=== PATIENT | female | born 1960 | race Caucasian/White ===

== ENCOUNTER 2018-02-17 00:18 | Outpatient (CLI) | payer MEDICAID, SELFPAY ==
--- NOTE | 2018-02-17 13:00 | DI.MAMMO_ITS ---
SYMPTOMS/DIAGNOSIS: SCREENING, Z12.31 MAMMOGRAM: Mammograms were interpreted according to the usual protocol including computer analysis with CAD system, tomosynthesis and C view imaging. The breast tissue is radiodense. There are no suspicious calcifications. When compared with previous examinations, again noted are the biopsy markers in the lateral portion of the left breast. There is no specific findings to suggest a malignancy in this patient and follow up surveillance with routine annual screening mammography is recommended. Category I. Breast density Category C. MQSA ASSESSMENT OF FINDINGS: Negative. Category 1. Patient will receive a letter notifying them of these results. Bi-RADS category C. The breasts are heterogeneously dense, which may obscure small masses.
== END 2018-02-17 00:38 ==
PROVIDERS: PCP Family Medicine; Visit Provider Family Medicine
DX: Z12.31 Encounter for screening mammogram for malignant neoplasm of breast (principal)
CPT/HCPCS: 77063; 77067

== ENCOUNTER 2018-11-18 00:45 | Outpatient (CLI) | payer MEDICAID, SELFPAY ==
[2018-11-18 12:31] LABS: HCT 41.9 % (36.0-46.0); HGB 14.4 g/dL (12.0-15.5); Mean Corp. HGB Concentration 34.4 g/dL (32.0-36.0); Mean Corpuscular Hemoglobin 32.4 pg (27.0-33.0); Mean Corpuscular Volume 94.4 fL (80-95); Mean Platelet Volume 9.6 fL (8.0-11.0); Platelet Count 281 x1000/uL (130-400); RBC 4.44 m/cumm (4.00-5.20); White Blood Cell Count 7.69 k/cumm (4.4-10.8)
[2018-11-18 13:13] LABS: ALT 16 U/L (14-59); AST 18 U/L (15-37); Albumin 4.1 g/dL (3.4-5.0); Alkaline Phosphatase 50 U/L (46-116); Anion Gap 9.7 mmol/L (3-11); BUN 19 mg/dL (7-18); Bilirubin, Total 0.5 mg/dL (0.2-1.0); CO2 25.3 mmol/L (21.0-32.0); CREATININE 0.99 mg/dL (0.55-1.02); Calcium 9.4 mg/dL (8.5-10.1); Calculated LDL 122 mg/dL; Chloride 105 mmol/L (98-107); Cholesterol 211 mg/dL (50-200); Estimated GFR 57.82 (mL/min/1.73m2); Glucose 90 mg/dL (70-100); HDL Cholesterol 78 mg/dL (40-60); Potassium 3.8 mmol/L (3.5-5.1); Sodium 140 mmol/L (136-145); TSH (W/Ref FT4) 0.92 uIU/mL (0.36-3.74); Total Protein 7.9 g/dL (6.4-8.2); Triglyceride 59 mg/dL (30-150)
--- NOTE | 2018-11-18 13:56 | DI.DEXA_ITS ---
EXAM: XR DEXA BONE DENSITY W/WO JUN INDICATION: bone loss, age-related osteoporosis wo pathologic fracture-M81.0. COMPARISON: There are no comparison examinations available. TECHNIQUE: 2D digital imaging was performed. FINDINGS: DEXA scan was performed according to the usual protocol. Findings for the lumbar spine scanning are a T-score of -2.5. Findings for left hip scanning are a T-score of -2.0 with left femoral neck T-scor e of -2.6. Findings for right forearm scanning T-score 0.4. IMPRESSION: Findings consistent with osteoporosis. Lateral vertebral scanogram shows no evidence of vertebral com pression fracture.
--- NOTE | 2018-11-18 14:30 | DI.RAD_ITS ---
EXAM: XR CERVICAL SPINE COMP 4-5V INDICATION: neck pain, M54.2-cervicalgia. COMPARISON: CERVICAL SP. LIMITED (TRAUMA) from 06/10/2013 TECHNIQUE: 2D digital imaging was performed. FINDINGS: Five views were obtained. The intervertebral disc spaces are well maintained. There appear to be mi ld hypertrophic degenerative changes of the facet joints throughout the cervical region. Neural fora suha appear well maintained. No additional significant bony abnormality seen. IMPRESSION: Degenerative facet changes, no other specific abnormality.
[2018-11-18 15:06] LABS: Vitamin D 25 Total 22.8 ng/ml (30-100)
== END 2018-11-18 01:05 ==
PROVIDERS: PCP Family Medicine; Visit Provider Family Medicine
DX: G89.29 Other chronic pain (principal); M81.0 Age-related osteoporosis without current pathological fracture; R53.83 Other fatigue; M54.2 Cervicalgia; M47.812 Spondylosis without myelopathy or radiculopathy, cervical region
CPT/HCPCS: 36415; 77080; 80053; 80061; 82306; 85027; 72050; 83735; 84443

== ENCOUNTER 2019-02-07 14:37 | Outpatient (CLI) | payer MEDICAID, SELFPAY ==
--- NOTE | 2019-02-07 14:48 | DI.RAD_ITS ---
EXAM: XR HIP LT COMPLETE AND AP PELVIS INDICATION: hip pain lt, M25.552. COMPARISON: XR DEXA BONE DENSITY W/WO JUN from 11/18/2018 TECHNIQUE: 2D digital imaging was performed. FINDINGS: Hip joint spaces are well maintained. There is no significant acetabular spurring. There are minima l degenerative changes of the SI joints and pubic symphysis. IMPRESSION: Minimal degenerative changes.
--- NOTE | 2019-02-07 14:51 | DI.RAD_ITS ---
EXAM: XR LUMBAR SPINE COMPLETE INDICATION: HIP PAIN, M25.552. COMPARISON: XR DEXA BONE DENSITY W/WO JUN from 11/18/2018 TECHNIQUE: 2D digital imaging was performed. FINDINGS: The vertebral bodies are well maintained in height. There is a slight scoliosis. The lumbar disc sp aces are well maintained. There is narrowing of the anterior disc spaces and endplate osteophytes fo rmation in the lower thoracic spine. There are facet degenerative changes in the lower lumbar spine, greatest at L5-S1. The aorta shows calcification but is normal in diameter. IMPRESSION: Facet degenerative changes greatest at L5-S1. Degenerative disc changes greatest at the lower thorac ic spine.
== END 2019-02-07 14:57 ==
PROVIDERS: PCP Family Medicine; Visit Provider Family Medicine
DX: M25.552 Pain in left hip (principal); M53.3 Sacrococcygeal disorders, not elsewhere classified; M47.817 Spondylosis without myelopathy or radiculopathy, lumbosacral region; M51.34 Other intervertebral disc degeneration, thoracic region
CPT/HCPCS: 72110; 73502

== ENCOUNTER 2019-05-10 20:02 | Outpatient (REF) | payer MEDICAID, SELFPAY ==
[2019-05-10 19:54] LABS: *AMPHETAMINES SCREEN URINE Negative (Negative); *BARBITURATES SCREEN URINE Negative (Negative); *BENZODIAZEPINES SCREEN URINE POSITIVE (Negative); Cannabinoids THC POSITIVE (Negative); Cocaine Screen,Urine Negative (Negative); METHADONE URINE SCREEN Negative (Negative); OPIATES URINE SCREEN POSITIVE (Negative)
[2019-05-10 20:16] LABS: Tricyclic Antidepressants Negative (Negative)
== END 2019-05-10 20:22 ==
LOC: LBN 20:02
PROVIDERS: PCP Family Medicine; Visit Provider Family Medicine
DX: G89.4 Chronic pain syndrome (principal); Z79.899 Other long term (current) drug therapy
CPT/HCPCS: 80307

== ENCOUNTER 2019-05-16 01:45 | Outpatient (CLI) | payer MEDICAID, SELFPAY ==
--- NOTE | 2019-05-16 14:45 | DI.MAMMO_ITS ---
EXAM: MAMMO SCREENING CLINICAL HISTORY: screening, Z12.39 TECHNIQUE: Mammograms were interpreted according to the usual protocol including computer analysis w datatracker CAD system, tomosynthesis and C-view imaging. FINDINGS: The breasts are heterogeneously dense. No dominant mass or clumped microcalcification is identified in either breast. Current examination is compared with previous examinations including January 2018 and there has been no gross interval change in appearance in comparison with previous studies. Note is again made of upper outer quadrant biopsy clips of the left breast. IMPRESSION: No specific evidence of malignancy at this time. Routine screening examinations are suggested at yea rly intervals in this age group according to the ACS ACR guidelines. BI-RADS Cat 1 - Negative Breast Density - Category C - Heterogeneously dense
--- NOTE | 2019-05-16 14:45 | DI.CTLCSR_ITS ---
EXAM: CT CHEST LUNG CANCER SCREEN CLINICAL HISTORY: Screening for lung cancer, current smoker, Z12.2 TECHNIQUE: COMPARISON: No exams were available for comparison FINDINGS: CT examination of the chest was performed utilizing low-dose lung cancer screening protocol. Images obtained through the upper abdomen show unremarkable appearance of visualized portions liver, spleen, pancreas, adrenals, kidneys. There is no mediastinal or hilar adenopathy. The tracheobronchial danny e appears intact. There is moderate central lobular emphysema. There are tiny bilateral calcified pulmonary nodules. No significant noncalcified intrapulmonary nodule seen. No pleural effusion. No pulmonary consolida tion. IMPRESSION: Lung RADS Cat 1 - Negative: No nodules and definitely benign nodules routine LD CT suggested in 12 mo nths.
== END 2019-05-16 02:05 ==
PROVIDERS: PCP Family Medicine; Visit Provider Family Medicine
DX: Z12.31 Encounter for screening mammogram for malignant neoplasm of breast (principal); Z12.2 Encounter for screening for malignant neoplasm of respiratory organs; J43.9 Emphysema, unspecified; R91.8 Other nonspecific abnormal finding of lung field
CPT/HCPCS: 77063; 77067; G0297

== ENCOUNTER 2020-05-21 02:17 | Outpatient (CLI) | payer MEDICAID, SELFPAY ==
--- NOTE | 2020-05-21 13:14 | DI.CTLCSR_ITS ---
EXAM: CT CHEST LUNG CANCER SCREEN CLINICAL HISTORY: Screening for lung cancer,CURRENT SMOKER, F17.210. TECHNIQUE: Imaging Protocol: Low Dose Technique CONTRAST MATERIAL: None COMPARISON: CT CT CHEST LUNG CANCER SCREEN from 05/16/2019 FINDINGS: CHEST: LUNGS: There are no ominous pulmonary nodules. No pleural effusions. MEDIASTINUM: There is no obvious hilar nor mediastinal adenopathy. CARDIAC: Heart size is normal. There is no pericardial effusion.Caliber of the thoracic aorta is wit hin normal limits. OSSEOUS: No significant osseous lesions.. IMPRESSION: 1. No significant pulmonary nodules. 2. No pleural effusions. lung RADS Cat 1 - Negative: No nodules and definitely benign nodules Lung-RADS 1.0 CATEGORIES: Category 0 - Prior chest CT exam(s) being located for comparison. Category 1 - Annual screening in 12 months. No nodules or definitely benign nodules. Category 2 - Annual screening in 12 months. Benign appearance. Nodules with low likelihood of becomin g active cancer. Category 3 - 6-month follow-up. Probably benign. Short-term follow-up suggested. Nodules with low lik elihood of becoming active cancer. Category 4A - 3-month follow-up and CT/PET if >8 mm in size. Suspicious finding. Findings which requi re additional testing. Category 4B - Findings which require additional testing and tissue sampling. Modifier S- Potentially clinically significant findings (non lung cancer) RADIATION DOSE DELIVERED: 74.95mGy.cm Total DLP 1.84mGy CTDIvol DATA REPOSITORY: All CT scans at this facility are submitted to the National Radiology Data Registry (NRDR) Dose Index Registry (DIR) with the [employer] (ACR). RADIATION OPTIMIZATION: All CT scans at this facility use at least one of these dose optimization te chniques: automated exposure control; mA and/or kV adjustment per patient size (includes targeted exa ms where dose is matched to clinical indication); or iterative reconstruction.
== END 2020-05-21 02:37 ==
PROVIDERS: PCP Family Medicine; Visit Provider Family Medicine
DX: Z12.2 Encounter for screening for malignant neoplasm of respiratory organs (principal); F17.210 Nicotine dependence, cigarettes, uncomplicated
CPT/HCPCS: 71271

== ENCOUNTER 2020-08-17 10:20 | Day surgery (SDC) | payer MEDICAID, SELFPAY ==
[2020-08-17 10:40] VITALS: BP 120/84; PULSE 92; RESP 17; TEMP 36.2; O2SAT 96
--- NOTE | 2020-08-17 11:01 | ANES.PREOP_ITS ---
General Info Date of Service Date Performed: 08/17/20 Height: 5 ft Weight: 49.4 kg Body Mass Index (BMI): 21.2 Surgical Procedure: Operation Date: 08/17/20 10:35 Proposed Procedures Side Surgeon kia Sheriff, Meds Allergies and Home Medications Allergies Allergy/AdvReac Type Severity Reaction Status Date / Time fentanyl Allergy Intermediate BLACKOUTS Verified 08/17/20 10:36 Sulfa (Sulfonamide Allergy Intermediate SKIN RASH Verified 08/17/20 10:36 Antibiotics) trimethoprim Allergy Intermediate SKIN RASH Verified 08/17/20 10:36 naproxen [From Aleve] Allergy Mild Rash Verified 08/17/20 10:36 meloxicam AdvReac Intermediate VOMITING Verified 08/17/20 10:36 tramadol AdvReac Intermediate VOMITING Verified 08/17/20 10:36 codeine AdvReac Mild VOMITING Verified 08/17/20 10:36 Home Medication Medication Instructions Recorded budesonide-formoterol HFA 160 2 puff INHALATION BID PRN #3 each 02/11/20 mcg-4.5 mcg/actuation aerosol inhaler ibuprofen 200 mg tablet 400 mg PO Q4H PRN tab 08/03/20 alprazolam 0.5 mg tablet 0.5 mg PO QHS PRN #30 tab 08/09/20 naloxone 4 mg/actuation nasal spray 4 mg NS PRN #2 ea 08/09/20 oxycodone-acetaminophen 10 mg-325 1 - 2 tab PO TID PRN #62 tab MDD 3 08/09/20 mg tablet Current Visit Medications: Current Medications Generic Name Dose Route Start Last Admin Trade Name Rickyq PRN Reason Stop Dose Admin Hyoscyamine Sulfate 0.125 mg 08/16/20 14:24 Hyoscyamine 0.125 Mg Sl/Oral/Chew SL DIRECTED PRN Ringer's Solution 1,000 mls @ 80 mls/hr 08/17/20 06:00 IV 09/15/20 23:59 [facility] IV Miscellaneous Supplies 1 each 08/17/20 06:00 Iv Access IV 09/15/20 23:59 DIRECTED DWAIN Ondansetron HCl 4 mg 08/16/20 14:24 Ondansetron 4 Mg/2 Ml Vial IVP Q4H PRN PRN Nausea / Vomiting Sodium Chloride 0 ml 06/25/21 06:00 Normal Saline Flush 10 Ml Syr IV 09/15/20 23:59 PRN PRN Sodium Chloride 0 ml 08/17/20 06:00 Normal Saline 10 Ml Vial IJ 09/15/20 23:59 DIRECTED PRN Sterile Water 0 ml 08/17/20 06:00 Water,Injection,Sterile 10 Ml Vial IJ 09/15/20 23:59 DIRECTED PRN PFSH Active Problems Active Problems: Problem Status Onset Code Dysphagia R13.10 Neck pain M54.2 Osteoporosis M81.0 Hand pain M79.643 Polyp, colonic K63.5 Vitamin D deficiency E55.9 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) 07/26/12 R85.613 History of skin graft Z94.5 Major depressive disorder F32.9 Synovial cyst of left popliteal space 04/22/16 M71.22 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 HPV/PAP ; neg. PAP Abnormal renal function (05/16/13) [place] [facility] [place]normal weight loss Ankle pain 11/14/13 Ankle pain (11/14/13) Annual physical exam (01/13/17) Anxiety (02/14/14) 01/13/17 LAURA-7 score 12 04/14/17 LAURA SCORE=12 Asthma (07/29/12) Ariza of multiple specified sites, unspecified degree (10/02/09) face,leg and hands Chronic pain disorder (10/08/11) Chronic sinusitis Decreased hearing of both ears (01/13/17) DUB (dysfunctional uterine bleeding) Elev transaminase/LDH Elevation of level of transaminase and lactic acid dehydrogenase (LDH) Fracture of fibula rt ankle injury Fracture of fibula HGSIL on cytologic smear of cervix 07/26/12 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 states no issues Smoker Soft tissue injury of left knee (12/11/15) bakers cyst left Sympathetic reflex dystrophy (11/18/16) Synovial cyst of left popliteal space (04/22/16) Trochanteric bursitis Surgical History Surgical History Arthroscopy 02/2009 RIGHT SHOULDER REPAIR OF BANKART LESION, SUBACROMIAL DECOMPRESSION; MINI OPEN REPAIR OF ROTATOR CUFF; DR. WILKS @ [facility]. 07/03-surgery to left wrist to untether tendon to grafted skin Biopsy of breast 13 STRANDS FROM RIGHT BREAST,NEVER WENT BACK TO [place] TO HAVE LEFT DONE Cervical Procedure SEVERAL CERVICAL BX [id number] Dilation and curettage History of bilateral ligation of fallopian tubes History of bilateral tubal ligation History of skin graft Hx of skin graft 02/23/09 grafts to both wrists; debrided left side of face Ligation of fallopian tube S/P arthroscopy of shoulder right shoulder repair of bankart lesion, subacromial decompression; mini open repair of rotator cuff; Dr. Wilks @ [facility], 07/03--surgery to left wrist to untether tendon to grafted skin. S/P breast biopsy SKIN GRAFT (07/14/09) GRAFTS TO BOTH WRISTS & LOWER ARMS; DEBRIDED LEFT SIDE OF FACE Status post arthroscopy of shoulder Status post breast biopsy Tooth extraction REMOVED WISDOM TEETH. GRAFT TO BOTTOM FRONT GUMS USING TISSUE FROM THE ROOF OF MOUTH. Tobacco Smoking/Tobacco Use Status: Current every day Tobacco Type: cigarettes Tobacco: How many years used: 36 Passive smoking exposure: Yes Quit Status: considering quitting Second hand exposure: Yes Alcohol Alcohol Intake: current Alcohol intake frequency: holidays/special occasions only Alcohol type: beer Substance Use Substance use: Daily Substance use type: marijuana Vital Signs and Lab Results Vital Signs Most Recent Vital Signs in EMR: Most Recent Vital Signs Temp Pulse Resp BP Pulse Ox 36.2 C L 92 H 17 120/84 96 08/17/20 10:40 08/17/20 10:40 08/17/20 10:40 08/17/20 10:40 08/17/20 10:40 Lab Results Blood Type / Crossmatch: No Data to Display Complete Blood Count: No Data to Display Complete Metabolic Panel: No Data to Display Liver Function Panel: No Data to Display Coagulation Panel: No Data to Display Cardiac Panel: No Data to Display Arterial Blood Gas: No Data to Display Venous Blood Gas: No Data to Display Pancreas Panel: No Data to Display Thyroid Panel: No Data to Display Infectious Disease: No Data to Display Blood Cultures: No Data to Display Toxicology Panel: No Data to Display Anesthesia Assessment and Plan Anesthesia History Personal History: No History of Anesthesia Complications Family History: No Family History of Anesthesia Complications Exercise Tolerance Exercise Tolerance: Metabolic Equivalents>4 Pertinent Negatives Pertinent Negatives: No Symptoms of GERD Cardiac & Pulmonary Exam Cardiac Exam: Normal S1/S2 Heart Sounds Pulmonary Exam: Clear Bilateral Breath Sounds Airway Exam Known Difficult Airway: No Mallampati Class: 2 Mouth Opening: Normal (> 3cm) Thyromental Distance: Greater than 3 cm Neck Range of Motion: Full ROM Neck Circumference: Normal Teeth Condition: Normal Dentition ASA Classification ASA Score: ASA 2 Emergency Case?: No NPO Status NPO Status: NPO Clears >2 hours, Solids >8 hours Anesthesia Plan Resuscitation Status: Full Code Anesthesia Technique: General Anesthesia Airway Planned: Natural Airway Monitors Used: Standard Monitors
[2020-08-17 11:03] VITALS: BMI 21.2
--- NOTE | 2020-08-17 11:13 | W.COLOREPORT ---
Date of service: 08/17/20 Time of Service: 11:13 Colonoscopy Report Date of procedure: 08/17/20 Pre-op diagnosis general: A. polyps Post-op diagnosis procedure note: other (Severe diverticula of the sigmoid colon and colon polyps) Surgeon: Crista Sheriff Anesthesia Type: General:No Airway Estimated blood loss (mL): 0 Pathology: other Complications: None Disposition: same day Prep: Miralax/Dulcolax Retraction Time: 12 Procedure Description: After informed consent was obtained the patient was taken to the procedure room and placed in a left decubitous position. Monitors were applied and a time out was done. The patients name, date of , procedure, allergies to medications and metal in their body was reviewed. The patient was then sedated. Once sedated and comfortable a rectal exam was done. External exam: External hemorrhoidal tags internal exam revealed a normal sphincter tone and no palpable masses. The scope was then introduced and retrofelexed. Grade 1 internal hemorrhoids were identified. The scope was then advanced to the cecum without difficulty. The TI and appendiceal orifice were identified. The prep was good. The scope was then slowly retracted over 12 minutes back into the rectum. Polyps were removed at she had 2 small polyps at 20 cm. 1 is of flat 5 mm polyp and is needing total with a cold biting forcep. The other is a 1 cm flat polyp in the is removed with a hot biting forcep in total. All specimens are retrieved and no bleeding is noted. She does have severe diverticular disease confined to the sigmoid colon. There is no signs of active bleeding or infection. She has very large and very polyps. This makes her colonoscopy difficult and at high risk for perforation. The scope was removed and the patient was woken up and taken back to Same day surgery in stable condition. The patient tolerated the procedure well and there were no immediate complications. Follow up: The patient should follow up in 5-path pending, unless they develop changes in bowel habits or other new gastrointestinal complaints.
--- NOTE | 2020-08-17 11:14 | PDOC.DSDIS_ITS ---
Discharge Plan Disposition Patient Disposition: HOME Condition: Good Discharge Details Reason For Visit: colon scope Attending Provider: Crista Sheriff Primary Care Provider: Lynda Cerda Home Meds and New Rx's Prescriptions: No Action ibuprofen [Advil] 200 mg tablet 400 mg PO Q4H PRNRF: 0 alprazolam 0.5 mg tablet 0.5 mg PO QHS PRN (Reason: sleep) Qty: 30 RF: 5 Narcan 4 mg/actuation spray,non-aerosol 4 mg NS PRN Qty: 2 RF: 4 oxycodone-acetaminophen 10-325 mg tablet 1 - 2 tab PO TID MDD 3 PRN (Reason: pain) Qty: 62 RF: 0 budesonide-formoterol [Symbicort] 160-4.5 mcg/actuation HFA aerosol inhaler 2 puff Inhalation BID PRN (Reason: asthma) Qty: 3 RF: 6 Discharge Instructions Additional Instructions: DSU Colonoscopy Post- Op Instructions Instructions for Everyone who is given Anesthesia: For your safety, please do the following for the next twenty-four (24) hours: *Do Not operate a motor vehicle (car, truck, motorcycle, etc.) *Do Not drink alcoholic beverages or use any recreational drugs for the first 24 hours or while taking pain medications. The medications in your body may have a reaction that can be dangerous. *Do Not make any important decisions or sign any important papers. Findings: severe diverticula. x2 small polyps We will send a letter in 3 to 4 weeks with the results of the pathology on the polyps, and when to repeat the colonoscopy Make sure you are following a high-fiber diet and moving your bowels on a regular basis without straining. Patient is on chronic narcotics and needs to make sure she is on a good bowel regimen is moving the bowels regularly and not strain 1. No lifting over 20 pounds or strenuous activity for the first 24 hours after your procedure. After 24 hours there are no restrictions on your activity but you may feel fatigued for a few days. 2. After you arrive home you may have a light meal and return to your normal diet as you can tolerate it without feeling sick to your stomach. 3. You may have a bloated, gaseous feeling in your belly (abdomen) after a colonoscopy. Passing gas and belching will help. Walking or lying down on your left side with your knees flexed may relieve the discomfort. Call the office at [phone] (Office) or [phone] (Hospital) right away if you notice any of the following: a.Vomiting of blood or ?coffee ground stools?. b.Rectal bleeding 1Tbsp, blood clots or continuous bleeding. c.Severe belly (abdominal) pain. d.A hard distended belly (abdomen) and an inability to pass gas. 4. Please don?t expect to have a normal BM (bowel movement) for 2-3 days after your procedure. 5. If there are questions regarding the findings of your procedure, please contact your doctor 6. If you are unable to contact your doctor with a problem, contact the hospital at [phone]. 7. Continue all your regular medications unless directed otherwise. I understand the above instructions and have no questions. Signature of Patient or Adult Escort Name of Responsible Adult Escort Signature of Nurse Date/Time Activity:: see above Diet:: see above Discharge Orders Discharge Orders: Discharge Order (Routine); Ordered 08/16/20 Ordered By: Crista Sheriff Discharge Data Discharge Date/Time-TO BE ENTERED AT DEPARTURE: 08/17/20 12:30 Discharge Comment: Pt ambulated to car with stand by assist, dtr gil DS: Diagnosis Discharge Diagnosis (1) Adenomatous colon polyp: Status: Acute (2) Diverticula of colon: Status: Acute
[2020-08-17] MEDS: Lactated Ringers 1,000 ML 80 ML IV (11:15)
--- NOTE | 2020-08-17 11:40 | BOWEL_PTH ---
PATIENT: Bela Alcantara LOC: [facility] U#:[id number] AGE/SX: 59/F ROOM: RE08/17/[address]: Crista Sheriff : 1960 BED: DIS: 08/17/2020 SPEC #: [id number] RECD: 08/17/20 12:49 STATUS: [facility]I REChuck #: [id number] STEPHANIE: 08/17/20 11:[address]: Crista Sheriff DEPT: Surgical Specimen RECD BY: Zaynab Mckinley ENTERED: 08/17/20 12:50 SP TYPE: Bowel OTHR DR: Lynda Cerda MD, DC Tissues: 1 - BIOPSY BOWEL Procedures: GROSS AND MICRO LEVEL 4 Comments: [id number]
[2020-08-17 11:49] VITALS: BP 107/54; PULSE 80; RESP 16; TEMP 36; O2SAT 98
--- NOTE | 2020-08-17 11:58 | W.ANESPOSTOP ---
Postoperative Evaluation Date, Time and Location Date Performed: 08/17/20 Time Performed: 11:58 Patient Location: Day Surgery Unit Vital Signs Most Recent Imported Vital Signs: Most Recent Vital Signs Temp Pulse Resp BP Pulse Ox 36.0 C L 80 16 107/54 L 98 08/17/20 11:49 08/17/20 11:49 08/17/20 11:49 08/17/20 11:49 08/17/20 11:49 Pain Score Most Recent Pain Score: Most Recent Pain Score Pain Level 0 08/17/20 11:49 Assessment Mental Status: Awake (Alert & Oriented to Patient Baseline) Airway and Respiratory Function: Patent airway with normal (patient baseline) respiratory exam Cardiovascular Function: Hemodynamically Stable Hydration Status: Adequately Hydrated Nausea & Vomiting: No Nausea or Vomiting Pain: Pt. Denies Any Pain Peripheral Nerve Block: Patient did not receive a nerve block
[2020-08-17 12:19] VITALS: BP 152/94; PULSE 80; RESP 20; TEMP 36.4; O2SAT 100
== END 2020-08-17 12:30 | disposition home or self-care (01) ==
PROVIDERS: PCP Family Medicine; Visit Provider Surgery
PROC: 0DJD8ZZ Inspection of Lower Intestinal Tract, Via Natural or Artificial Opening Endoscopic (ICD-10-PCS; CPT 45378; principal; 2020-08-17 10:30)
DX: Z12.11 Encounter for screening for malignant neoplasm of colon (principal); K63.5 Polyp of colon; K57.30 Diverticulosis of large intestine without perforation or abscess without bleeding; Z86.010 Personal history of colon polyps
CPT/HCPCS: 45384; 45380; 88305; J2001

== ENCOUNTER 2020-08-28 04:18 | Outpatient (CLI) | payer MEDICAID, SELFPAY ==
[2020-08-28 09:35] LABS: HCT 42.2 % (36.0-46.0); HGB 14.1 g/dL (11.2-15.7); MCH 32.6 pg (27.0-33.0); MCHC 33.4 % (32.0-36.0); MCV 97.5 fL (80-95); MPV 9.3 fL (8.0-11.0); Platelet Count 316 10^3/uL (130-400); RBC 4.33 10^6/uL (3.93-5.22); RDW 13.5 % (11.7-14.6); RDW-SD 48.8 fL
[2020-08-28 11:01] LABS: ALT 14 U/L (14-59); AST 13 U/L (15-37); Albumin 3.7 g/dL (3.4-5.0); Alkaline Phosphatase 58 U/L (46-116); Anion Gap 12.3 mmol/L (3-11); BUN 13 mg/dL (7-18); Bilirubin, Total 0.4 mg/dL (0.2-1.0); CO2 24.7 mmol/L (21.0-32.0); CREATININE 1.1 mg/dL (0.55-1.02); Chloride 105 mmol/L (98-107); Estimated GFR 50.84 (mL/min/1.73m2); Glucose 90 mg/dL (74-106); Potassium 4.2 mmol/L (3.5-5.1); Sodium 142 mmol/L (136-145); TSH (W/Ref FT4) 1.19 uIU/mL (0.36-3.74); Total Protein 6.9 g/dL (6.4-8.2)
== END 2020-08-28 04:19 | disposition home or self-care (01) ==
LOC: LBO 04:18
PROVIDERS: PCP Family Medicine; Visit Provider Family Medicine
DX: E55.9 Vitamin D deficiency, unspecified (principal); M81.0 Age-related osteoporosis without current pathological fracture; G90.50 Complex regional pain syndrome I, unspecified; N28.9 Disorder of kidney and ureter, unspecified; F41.8 Other specified anxiety disorders
CPT/HCPCS: 36415; 80053; 82306; 85027; 84443

== ENCOUNTER 2021-03-25 14:39 | Outpatient (REF) | payer MEDICAID, SELFPAY ==
[2021-03-27 09:31] LABS: COVID-19 RT-PCR UVMMC Result Negative (Negative)
== END 2021-03-25 14:40 | disposition home or self-care (01) ==
LOC: LBN 14:39
PROVIDERS: PCP Family Medicine; Visit Provider Family Medicine
DX: R11.10 Vomiting, unspecified (principal); R19.7 Diarrhea, unspecified; Z20.822 Contact with and (suspected) exposure to COVID-19
CPT/HCPCS: 80307; U0003

== ENCOUNTER 2021-05-20 09:48 | Outpatient (REF) | payer MEDICAID, SELFPAY ==
[2021-05-20 15:08] LABS: *AMPHETAMINES SCREEN URINE Negative (Negative); *BARBITURATES SCREEN URINE Negative (Negative); *BENZODIAZEPINES SCREEN URINE Positive (Negative); Cannabinoids THC Positive (Negative); Cocaine Screen,Urine Negative (Negative); METHADONE URINE SCREEN Negative (Negative); OPIATES URINE SCREEN Positive (Negative)
[2021-05-20 15:13] LABS: Tricyclic Antidepressants Negative (Negative)
== END 2021-05-20 09:49 | disposition home or self-care (01) ==
LOC: LBN 09:48
PROVIDERS: PCP Family Medicine; Visit Provider Family Medicine
DX: G89.4 Chronic pain syndrome (principal)
CPT/HCPCS: 80307

== ENCOUNTER 2021-05-22 01:49 | Outpatient (CLI) | payer MEDICAID, SELFPAY ==
--- NOTE | 2021-05-22 07:15 | DI.MAMMO_ITS ---
Exam(s) MAMMO SCREENING EXAM: MAMMO SCREENING CLINICAL HISTORY: screening Z12.39 FOR BREAST CANCER TECHNIQUE: Mammograms were interpreted according to the usual protocol including computer analysis w [employer] CAD system, tomosynthesis and C-view imaging. COMPARISON: FINDINGS: The breasts are heterogeneously dense with fairly symmetrical distribution of fibroglandular tissue. No dominant mass or clumped microcalcification is identified in either breast. The current examinat ion is compared with previous examinations including April 2019 and there has been no gross interval change in appearance in comparison with the prior studies. IMPRESSION: No specific evidence of malignancy at this time. Routine screening examinations are suggested at ye ladi intervals in this age group according to the ACS ACR guidelines. BI-RADS Category 1 - Negative Breast Density - Category C - Heterogeneously dense
--- NOTE | 2021-05-22 13:17 | DI.CTLCSR_ITS ---
Exam(s) CT CHEST LUNG CANCER SCREEN EXAM: CT CHEST LUNG CANCER SCREEN CLINICAL HISTORY: Screening for lung cancer F17.210 SMOKER TECHNIQUE: CT examination of the chest was performed utilizing low-dose lung cancer screening protoc ol. COMPARISON: CT CT CHEST LUNG CANCER SCREEN from 05/16/[address] CHEST LUNG CANCER SCREEN from 05/21/2020 FINDINGS: Images obtained through the upper abdomen show unremarkable appearance of visualized portions of the spleen. There is a poorly defined rounded area intermediate attenuation in the anterior aspect of t he left hepatic lobe measuring about 19 millimeters in diameter, this appears to show attenuation abo ve expected attenuation of a cyst. This was questionably present on prior examinations but is much m ore easily seen on today's study. Multiphasic hepatic CT suggested to rule out hepatic mass.. There is no mediastinal or hilar adenopathy. Mediastinal vascular structures appear intact by noncon trast criteria. Tracheobronchial tree appears intact. No pleural effusion or pleural-based mass. The lungs are clear with no significant intrapulmonary nodule identified. A calcified right middle l obe pulmonary nodule is again noted. IMPRESSION: No suspicious pulmonary nodule seen. Questionable hepatic mass, multiphasic hepatic CT requested for further evaluation. Lung RADS Cat 1 - Negative: No nodules and definitely benign nodules Lung RADS Cat S - Other: Clinically Significant or Potentially Clinically Significant Findings (non l ronald cancer) Continue annual screening with LDCT in 12 months. Incidental Findings Lung-RADS 1.0 CATEGORIES: Category 0 - Prior chest CT exam(s) being located for comparison. Category 1 - Annual screening in 12 months. No nodules or definitely benign nodules. Category 2 - Annual screening in 12 months. Benign appearance. Nodules with low likelihood of becomin g active cancer. Category 3 - 6-month follow-up. Probably benign. Short-term follow-up suggested. Nodules with low lik elihood of becoming active cancer. Category 4A - 3-month follow-up and CT/PET if >8 mm in size. Suspicious finding. Findings which requi re additional testing. Category 4B - Findings which require additional testing and tissue sampling. Suspicious finding. Category 4X - Category 3 or 4 nodules with additional features or imaging findings that increases the suspicion of malignancy. Modifier S- Potentially clinically significant finding. (Non lung cancer) RADIATION DOSE DELIVERED: 77.81mGy.cm Total DLP !Error CTDIvol 77.81mGy.cm Total DLP !Error CTDIvol RADIATION OPTIMIZATION: All CT scans at this facility use at least one of these dose optimization te chniques: automated exposure control; mA and/or kV adjustment per patient size (includes targeted exa ms where dose is matched to clinical indication); or iterative reconstruction.
== END 2021-05-22 02:09 ==
PROVIDERS: PCP Family Medicine; Visit Provider Family Medicine
DX: Z12.31 Encounter for screening mammogram for malignant neoplasm of breast (principal); F17.210 Nicotine dependence, cigarettes, uncomplicated; Z12.2 Encounter for screening for malignant neoplasm of respiratory organs; R93.2 Abnormal findings on diagnostic imaging of liver and biliary tract; R92.8 Other abnormal and inconclusive findings on diagnostic imaging of breast
CPT/HCPCS: 71271; 77063; 77067

== ENCOUNTER → 2021-11-01 00:40 | Outpatient (CLI) | payer MEDICAID, SELFPAY ==
--- OUTSIDE RECORDS SUMMARY | 2021-11-01 01:01 | XMS_ITS | Encounter Summary ---
:1960 Author Organization [facility] Address [address] [place] [address] Care Team Providers Name Role Phone Lynda Cerda MD Primary Care Provider Reason for Visit Reason Onset Date Comments Appointment Related 05/20/2011 Dr. Jesus Day Encounter Details Date Type Department Care Team Description 05/20/2011 Telephone [facility] Cnoner Harmon Appoint ment Related Plastic, Reconstructive & Jonn Chaparro (Dr. Jesus Day) Cosmetic Surgery - [address] [facility] [address] [facility], [address] [place] [phone] Social History Tobacco Use Types Packs/Day Years Used Date Current Every Day Smoker 1 23 Alcohol Use Standard Drinks/Week Comments Yes 2 (1 standard drink = 0.6 oz pure alcoho l) Sex Assigned at Date Recorded Not on file documented as of this encounter Functional Status Cognitive Status Response Date of Assessment Because of a physical, mental, or emotional condition, do Ye s 07/15/2009 you have serious difficulty concentrating, remembering, or making decisions? (5 years old or older) documented as of this encounter Miscellaneous Notes Telephone Encounter - Mell Mathis - 05/20/2011 1034 EDT Left message for patient appt sched with Dr. Jesus Day for 05/28/11 @ 10:30am. with appt info, address & phone # to contact Dr. Day's office with questions. Clinical faxed for appt. documented in this encounter Plan of Treatment Not on filedocumented as of this encounter Visit Diagnoses Not on filedocumented in this encounter Care Teams Vehicle Glass Technician Relationship Specialty Start Date End Date Lynda Cerda MD PCP - General 08/16/[address] [place] [address] [address] [place] [phone] documented as of this encounter
--- OUTSIDE RECORDS SUMMARY | 2021-11-01 01:01 | XMS_ITS | Encounter Summary ---
:1960 Author Organization [facility] Address [address] [place] [address] Care Team Providers Name Role Phone Lynda Cerda MD Primary Care Provider Encounter Details Date Type Department Care Team Description 01/13/2017 Results Only [facility]- [facility] Lynda Cerda MD [phone] [place] [phone] (Wo rk) Social History Tobacco Use Types Packs/Day Years [...] or older) documented as of this encounter Plan of Treatment Not on filedocumented as of this encounter Procedures Procedure Name Priority Date/Time Associated Diagnosis Comme nts PAP TEST- RESULT Routine 01/13/2017 0:00 EST Resu lts for this ONLY procedure are i n the results section. documented in this encounter Results PAP TEST- RESULT ONLY (01/13/2017 0:00 EST) Pathology Report: CYTOPATHOLOGY REPORT [facility] Reports generated via electronic interface contain devon ginal data; SERVICES however they are lacking the format of the original re port. Caution should be taken when reading/interpreting unfo rmatted reports. Name: ? ARAVIND HUIZAR ? Accession #: ? [id number] ? : ? 1960 (Age: [age]) ??F ?Collect Da te: ? 01/13/2017 ? Location: ? [facility] ? Receive Date: ? 017 ? Provider: LYNDA CERDA MD Copy to: ? Final Report SPECIMEN ADEQUACY ? Satisfactory for Evaluation - transformation zone component present GENERAL CATEGORIZATION ? Negative for Intraepithelial Lesion or Malignan cy ?? Menstrual/ Status: ??Post Menopausal Treatment History: Yes: yrs ago Specimen/Source: ??Pap Test, Cervix, ThinPrep Imaging System with manual evaluation Document reviewed and electronically signed by: ? Sheela Dejesus, CT(ASCP) ? Report ??Date: 01/27/2017 12:58 HPV with Pap Test ? Date Ordered: ? 01/27/2017 ? Status: ?? Signed Out ?Date Complete: ? 01/30/2017 ? By: ??Sy stem Interface ? Date Reported: ? 01/30/2017 ? Interpretation RESULT: Negative for HPV. No E6 or E7 mRNA is detected from HPV types 16,18,31,3 3,35, 39,45,51,52,56,58,59,66, and 68 by industrial tech instructor media lul amplification. Comments Document reviewed and electronically signed by: ? System Interface ? Report date: 01/30/2017 By the signature above, the attending physician certif ies that he/she has personally conducted a gross and/or microscopic examin ation of the described specimens and rendered or confirmed the above diagnosi s. End of Report Specimen Performing Organization Address City/State/ZIP Code Phon e Number [facility] [address] [place] [address] SERVICES documented in this encounter Visit Diagnoses Not on filedocumented in this encounter Care Teams Insole Cementer Relationship Specialty Start Date End Date Lynda Cerda MD PCP - General 08/16/[address] [place] [phone] documented as of this encounter
--- OUTSIDE RECORDS SUMMARY | 2021-11-01 01:01 | XMS_ITS | Encounter Summary ---
:1960 Author Organization [facility] Address [address] [place] [address] Care Team Providers Name Role Phone Lynda Cerda MD Primary Care Provider Encounter Details Date Type Department Care Team Description 08/17/2020 Lab Requisition [facility] Crista Sheriff for other Pathology & M, DO general examination Laboratory Medicine - [address] [facility] [address] [place] [phone] Social History Tobacco Use Types Packs/Day Years [...] Name Priority Date/Time Associated Diagnosis Comme nts SURGICAL PATHOLOGY Today 08/17/2020 11:40 Encounter for othe r Results for this EDT general examination procedur e are in the results section. documented in this encounter Results SURGICAL PATHOLOGY (08/17/2020 11:40 EDT) Final Diagnosis A. COLON, 20 CM, POLYPS, BIOPSY: [facility]RI[facility] EDICAL - Hyperplastic polyps. [facility] Attestation There was significant [facility] Electr onically resident/fellow CENTER signed by Ab sandra Viramontes, involvement in the LABORATORY Jonn Miner on diagnostic evaluation SERVICES 021 at 0929 of this case. By the signature below, the attending physician certifies that they have personally conducted a gross and/or microscopic examination of the described specimens and rendered or confirmed the above diagnosis. Clinical History History of colon [facility] polyps [facility] Gross Description A. [facility] Received in formalin shavonne d with proper patient identification (initials D, W) and colon polyps @ 20 cm are 4 hamilton-pink polypoid tissues ( 0.2 x 0.2 x 0.1 cm to 0.3 x 0.2 x 0 cm). Submitted entirely in A1. [facility] CHRIS VELAZCO([facility]) 08/17/2020 15:42 SE RVICES Resident/Fellow: Aurelio Cobos MD [facility] Performing Lab [facility] Scanned Images [facility] SERVICES Specimen Tissue - Entire colon (body structure) Performing Organization Address City/State/ZIP Code Phon e Number [facility] [address] [place] [address] SERVICES documented in this encounter Visit Diagnoses Diagnosis Encounter for other general examination documented in this encounter Care Teams Life Management Teacher Relationship Specialty Start Date End Date Lynda Cerda MD PCP - General 08/16/[address] [place] [address] [address] [place] [phone] documented as of this encounter
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
--- OUTSIDE RECORDS SUMMARY | 2021-11-01 01:01 | XMS_ITS | Encounter Summary ---
:1960 Author Organization [facility] Address [address] [place] [address] Care Team Providers Name Role Phone Lynda Cerda MD Primary Care Provider Reason for Visit Reason Onset Date Comments Wrist Pain 04/10/2011 Encounter Details Date Type Department Care Team Description 04/10/2011 Telephone [facility] Plastic, Conner Harmon Jr., MD Wrist Pain Reconstructive & Cosmetic [address] Surgery - [facility] [address] [place], [place] [address] [phone] [place] [address] [phone] Social History Tobacco Use Types Packs/Day Years [...] this encounter Miscellaneous Notes Telephone Encounter - Conner Harmon MD - 04/10/2011 1054 EST I had a discussion with Dr. Arias about Bela. I would like to offer surgery to Bela: a ulnar neuroplasty at the wrist. I would like her to begin on neurontin prior to surgery, in order to prophylax for RSD. I would manage Bela's pain medication for a short period after her surgery and then she would revert to her pain medication contract with Dr. Arias. documented in this encounter Plan of Treatment Not on filedocumented as of this encounter Visit Diagnoses Not on filedocumented in this encounter Care Teams Wood Scrap Handler Relationship Specialty Start Date End Date Lynda Cerda MD PCP - General 08/16/[address] [place] [address] [address] [place] [phone] documented as of this encounter
--- OUTSIDE RECORDS SUMMARY | 2021-11-01 01:01 | XMS_ITS | Encounter Summary ---
:1960 Author Organization [facility] Address [address] [place] [address] Care Team Providers Name Role Phone Lynda Cerda MD Primary Care Provider Encounter Details Date Type Department Care Team Description 03/25/2011 Abstract [facility] Guillermo & Jean-Claude Berumen MD Upper Extremity Program - [address] [employer] [address] [phone] [place] [address] [phone] Social History Tobacco Use Types Packs/Day Years Used Date Current Every Day Smoker 1 23 Alcohol Use Standard Drinks/Week Comments Yes [id number] (1 standard drink = 0.6 oz pure alcohol) Sex Assigned at Date Recorded Not on [...] on filedocumented in this encounter Care Teams Trim Mechanic Relationship Specialty Start Date End Date Lynda Cerda MD PCP - General 08/16/[address] [place] [phone] documented as of this encounter
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
--- OUTSIDE RECORDS SUMMARY | 2021-11-01 01:01 | XMS_ITS | Encounter Summary ---
:[address] [facility] Address [address] [place] [address] Care Team Providers Name Role Phone Lynda Cerda MD Primary Care Provider Reason for Visit Reason Comments Follow-up discussion about left hand p ain Encounter Details Date Type Department Care Team Description 04/03/2011 Office Visit [facility] Unknown, Prov MD adarsh Wrist pain (Primary Acute Care Surgery - Guzman uQintero MD [address] [place] [phone] Dx) [facility] Trauma, Surgery, [address] [place] [address] Social History Tobacco Use Types Packs/Day Years [...] documented as of this encounter Progress Notes Guzman Quintero MD - 04/04/2011 1104 EST DIVISION OF TRAUMA SURGERY PROGRESS/FOLLOWUP NOTE - 04/03/2011 CHIEF COMPLAINT: Pain in my left wrist. SUBJECTIVE: This patient is well known to our clinic and has persistent pain on the ulnar side of the palmar surface of her left wrist. This hurts most with rotational movements and holding things on that side. She has been to see Dr Berumen, the hand surgeon and was advised there was not much that could be done. It was suggested a z-plasty might help release the scar bands that are circumferential around her wrist. She has had nerve conduction studies, which showed some ulnar neuropathy and some borderline carpal tunnel syndrome. She has also been to see anesthesia pain clinic and they have recommended Lyrica and Xylocaine jelly. At this point, she has not tried this as she is trying to clear this with her primary care physician first. OBJECTIVE: On physical exam, the patient is awake and responsive. Right wrist is normal with good range of motion. Left wrist has full range of motion. She does have point tenderness on the ulnar side of the wrist and appears to have a trigger point in this region. Skin graft is quite supple over the wrist. It seems to move smoothly and evenly over all structures except for one very small area on theulnar side that measures about 2 to 3 mm that might be attached to the underlying tissues. There is no evidence of hypertrophy. Transitional Living Specialist strength was good. ASSESSMENT AND PLAN: I do not believe a Z-plasty will help in terms of releasing the scars. This does not appear to be hypertrophic and not limiting function. The skin graft is supple and seems to moveover the underlying structures. It appears that Bela would like one another opinion and I have called Omid Harmon to see whether or not he might be able to see her and voice a second opinion concerning the involvement of the skin graft in this pain syndrome. I will call Bela after this appointment is completed. Electronically Signed by Guzman Quintero MD 07/25/2011 16:55 Guzman Quintero MD - Guzman Quintero MD - PATTI Job ID: Doc ID: [id number] Ext Doc ID: [id number] cc: Guzman Cedillo MD - 04/03/2011 1458 EST This office note has been dictated. documented in this encounter Plan of Treatment Not on filedocumented as of this encounter Visit Diagnoses Diagnosis Wrist pain - Primary Pain in joint, forearm documented in this encounter Care Teams Pourer Bull Ladle Relationship Specialty Start Date End Date Lynda Cerda MD PCP - General 08/16/08 [address] [place] [address] documented as of this encounter
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
--- OUTSIDE RECORDS SUMMARY | 2021-11-01 01:01 | XMS_ITS | Encounter Summary ---
:1960 Author Organization [facility] Address [address] [place] [address] Care Team Providers Name Role Phone Lynda Cerda MD Primary Care Provider Encounter Details Date Type Department Care Team Description 03/25/2021 Lab Requisition [facility] Outr Resulting Lab, Pathology & Laboratory Provider [facility] [address] [place] [address] Social History Tobacco Use Types Packs/Day Years [...] Name Priority Date/Time Associated Diagnosis Comme nts COVID-19 TEST [facility] Today 03/25/2021 10:30 LAB PCR EST COVID-19 TESTING Routine 03/25/2021 10:30 Results for this EST procedure are i n the results section. documented in this encounter Results COVID-[address] [facility] (03/25/2021 10:30 EST) Specimen Swab Performing Organization Address City/State/ZIP Code Phon e Number [facility] [address] [place] [address] SERVICES COVID-19 TESTING (03/25/2021 10:30 EST) COVID-19 rt-PCR Negative Negative [facility] Result Comment: [facility] This test has not been FDA c leared or approved. This test has been authorized by FDA under an EUA for use by authorized laboratories. This test has been authorized only for detection of nucleic acid fro SERVICES m 2019-nCoV, not for any oth er viruses or pathogens. This test is only authorized for the duration of the declaration that circumstances exist justifying the authorization of emergency use of in vitro d iagnostic tests for detectio n and/or diagnosis of 2019-nCoV under section 564(b)(1) of Act, 21 U.S.C ?? 360bbb-3(b) (1), unless the authorization is terminated or revoked sooner. Negative results do not prec lude 2019-nCoV infection and should not be used as the sole basis for treatment or other patient management decisions. Negative results must be combined with clinical observa tions, patient history, and epidemiological informatio n. This test was developed and its performance characteristics determined by [facility]. It has not been cleared or approved by the US Food and Drug Administration. FDA does not require this test to go through premarket FDA review. This t est is used for clinical purposes. It should not be regarded as investigational or for research. This laboratory is certified under the Clinical Laboratory Improvement Amendm ents (CLIA) as qualified to perform high complexity clinical laboratory testing. Laboratory Developed Test (LDT) Performed on the [employer] Opticso 7 Flex RT-PCR System. Performing Lab [facility] Lab [facility] SERVICES Specimen Swab Performing Organization Address City/State/ZIP Code Phon e Number [facility] [address] [place] [address] SERVICES documented in this encounter Visit Diagnoses Not on filedocumented in this encounter Care Teams Government Affairs Fellow Relationship Specialty Start Date End Date Lynda Cerda MD PCP - General 08/16/08 [facility] [address] [place] [address] documented as of this encounter
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
--- OUTSIDE RECORDS SUMMARY | 2021-11-01 01:02 | XMS_ITS | Encounter Summary ---
:1960 Author Organization [facility] Address [address] [place] [address] Care Team Providers Name Role Phone Lynda Cerda MD Primary Care Provider Reason for Visit Reason Onset Date Comments Appointment Related 12/20/2009 Encounter Details Date Type Department Care Team Description 12/20/2009 Telephone [facility] Guzman Quintero Appoi ntment Related Rehabilitation Therapy - Medical Office Build ing [address] [place] [phone] Social History Tobacco Use Types Packs/Day Years Used Date Current Every Day Smoker 1 23 Alcohol Use Standard Drinks/Week Comments Yes [id number] (1 standard drink = 0.6 oz pure [...] this encounter Miscellaneous Notes Telephone Encounter - Sakina Martin - 12/20/2009 1015 EDT We have called this patient 2 times to scheduled a Physical Therapy Disability Evaluation, which is 2 hrs long. The patient has not returned our calls documented in this encounter Plan of Treatment Not on filedocumented as of this encounter Visit Diagnoses Not on filedocumented in this encounter Care Teams Sawdust Drier Relationship Specialty Start Date End Date Lynda Cerda MD PCP - General 08/16/[address] [place] [phone] documented as of this encounter
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
--- OUTSIDE RECORDS SUMMARY | 2021-11-01 01:02 | XMS_ITS | Encounter Summary ---
:1960 Author Organization [facility] Address [address] [place] [address] Care Team Providers Name Role Phone Lynda Cerda MD Primary Care Provider Encounter Details Date Type Department Care Team Description 06/07/2010 Abstract [facility] & Jean-Claude Berumen MD Upper Extremity Program - [address] [employer] [address] [address] [place] [address] 403 [phone] Social History Tobacco Use Types Packs/Day Years Used Date Current Every Day Smoker 1 23 Alcohol Use Standard Drinks/Week Comments Yes [id number] (1 standard drink = 0.6 oz pure [...] on filedocumented in this encounter Care Teams Qa Automation Developer Relationship Specialty Start Date End Date Lynda Cerda MD PCP - General 08/16/[address] [place] [phone] documented as of this encounter
--- OUTSIDE RECORDS SUMMARY | 2021-11-01 01:02 | XMS_ITS | Encounter Summary ---
:1960 Author Organization [facility] Address [address] [place] [address] Care Team Providers Name Role Phone Lynda Cerda MD Primary Care Provider Encounter Details Date Type Department Care Team Description 06/04/2010 Results Only Imaging [facility] Hand Jonn Berumen, & Upper Extremity MD Program - [place] [address] [place], [place], [place] [address] [facility] [phone] (Wo rk) Social History Tobacco Use Types Packs/Day Years Used Date Current Every Day Smoker 1 23 Alcohol Use Standard Drinks/Week Comments Yes [id number] (1 standard drink = 0.6 oz pure alcohol) Sex Assigned at Date Recorded Not on file documented as of this encounter Functional Status Cognitive Status Response Date of Assessment Because of a physical, mental, or emotional condition, do Ye s 07/15/2009 you have serious difficulty concentrating, remembering, or making decisions? (5 years old or older) documented as of this encounter Plan of Treatment Pending Results Name Type Priority Associated Diagnoses Date/Ti me OUTSIDE CD - [facility] 011 14:40 EDT OUTSIDE CD - MRI [facility] 011 14:41 EDT documented as of this encounter Visit Diagnoses Not on filedocumented in this encounter Care Teams Swine Nutritionist Relationship Specialty Start Date End Date Lynda Cerda MD PCP - General 08/16/[address] [place] [address] documented as of this encounter
--- OUTSIDE RECORDS SUMMARY | 2021-11-01 01:02 | XMS_ITS | Encounter Summary ---
:1960 Author Organization [facility] Address [address] [place] [address] Care Team Providers Name Role Phone Lynda Cerda MD Primary Care Provider Encounter Details Date Type Department Care Team Description 10/22/2010 Results Only [facility] Kaitlynn Cerda MD Laboratory Services - [address] [place] [address] [address] [place], [place] [phone] (Wo rk) Social History Tobacco Use Types Packs/Day Years Used Date Current Every Day Smoker 1 23 Alcohol Use Standard Drinks/Week Comments Yes [id number] (1 standard drink = 0.6 oz pure [...] Diagnosis Comme nts PAP TEST- RESULT Routine 10/22/2010 0:00 EDT Resu lts for this ONLY procedure are i n the results section. documented in this encounter Results PAP TEST- RESULT ONLY (10/22/2010 0:00 EDT) Pathology Report: CYTOPATHOLOGY REPORT ? [facility]ON POOL ? LAB Reports generated via electr onic interface contain original data; ? however they are lacking the format of the original report. ? Caution should be taken when reading/interpreting unformatted reports. ? Name: ? ARAVIND HUIZAR ? Accession #: ? [id number] ? : ? 1960 (Age: 49) ??F ?Collect Date: ? 10/22/2010 ? Location: ? [facility] ? R eceive Date: ? 10/23/2010 ? Provider: LYNDA M DOBBERTIN MD ? Copy to: ? Final Report ? SPECIMEN ADEQUACY ? Satisfactory for Eval uation ? - transformation zone compon ent present ? GENERAL CATEGORIZATION ? Negative for Intraepi thelial Lesion or Malignancy ? Menstural/ Status: ??Post Menopausal ? Previous Gynecologic Patholo gy: Yes: H/o abnormal many yrs ago ? Specimen/Source: ??Pap Test, Endocervix, ThinPrep Imaging System with manual ? evaluation ? Document reviewed and electr onically signed by: ? Aakash Rushing CT( CP) ? Report ??Date: 2010 13:32 ? HPV with Pap Test ? Date Ordered: ? 0 10/29/2010 ? Status: ?? Signed Out ?Date Complete: ? 11/04/2010 ? By: ??System Interface ? Date Reported: ? 11/04/2010 ? Interpretation ? RESULT: Negative for HPV typ es 16, 18, 31, 33, 35, 39, 45, 51, 52, ? 56, 58, 59, and 68. ? Comments ? Document reviewed and electr onically signed by: ? System Interface ? Report date: 11/05/19 ? By the signature above, the attending physician certifies that he/she has ? personally conducted a gross and/or microscopic examination of the described ? specimens and rendered or co nfirmed the above diagnosis. ? End of Report ? Specimen Performing Organization Address City/State/[facility] Code Phon e Number [facility] [address] [place] [address] SERVICES [facility] [address] [place] [address] documented in this encounter Visit Diagnoses Not on filedocumented in this encounter Care Teams Environmental Conservation Professor Relationship Specialty Start Date End Date Lynda Cerda MD PCP - General 08/16/[address] [place] [address] [address] [place] [phone] documented as of this encounter
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
--- OUTSIDE RECORDS SUMMARY | 2021-11-01 01:02 | XMS_ITS | Encounter Summary ---
:1960 Author Organization [facility] Address [address] [place] [address] Care Team Providers Name Role Phone Lynda Cerda MD Primary Care Provider Reason for Visit Reason Onset Date Comments Prior Auth, Other (i.e. radiology, etc.) 06/21/2010 Encounter Details Date Type Department Care Team Description 06/21/2010 Telephone [facility] Guzman Quintero, Prior Auth, Other (i.e. [address] MD radiology, etc.) [place] [address] [address] [facility] [phone] [place] [id number] Social History Tobacco Use Types Packs/Day Years Used Date Current Every Day Smoker 1 23 Alcohol Use Standard Drinks/Week Comments Yes 16.35495021930704681 (1 standard drink = 0.6 oz pure [...] this encounter Miscellaneous Notes Telephone Encounter - Beatrice Anne - 06/21/2010 1345 EDT DOS - 06/26/2010 - CPT - 44868 - ICD9 - 944.30 - [place] Medicaid - No PA documented in this encounter Plan of Treatment Not on filedocumented as of this encounter Visit Diagnoses Not on filedocumented in this encounter Care Teams Supervisor Felling Bucking Relationship Specialty Start Date End Date Lynda Cerda MD PCP - General 08/16/[address] [place] [address] [address] [place] [phone] documented as of this encounter
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
--- OUTSIDE RECORDS SUMMARY | 2021-11-01 01:02 | XMS_ITS | Encounter Summary ---
:1960 Author Organization [facility] Address [address] [place] [address] Care Team Providers Name Role Phone Lynda Cerda MD Primary Care Provider Reason for Visit Reason Onset Date Comments Appointment Related 04/09/2010 regarding appointmen t on 04/11/10 Encounter Details Date Type Department Care Team Description 04/09/2010 Telephone [facility] Angelique Irizarry RN Appo intment Related Acute Care Surgery - (regard ing appointment [facility] on 04/11/10) [address] [place] [address] Social History Tobacco Use Types Packs/Day Years Used Date Current Every Day Smoker 1 23 Alcohol Use Standard Drinks/Week Comments Yes 16.02097790224442396 (1 standard drink = 0.6 oz pure [...] this encounter Miscellaneous Notes Telephone Encounter - Angelique Irizarry RN - 04/09/2010 1523 EST Patient had received call from registration about her appointment being at 12:30pm and patient thought it was for 11:30am Patient was called to be advised that as of the first of the year, our office hours had changed to begin at 12noon. Patient also wanted to make sure that Dr. Quintero would be available, and patient was advised that he is scheduled to be in clinic, but if a Trauma was initiated that he may need to leave. Also patientstates that her insurance has changed and if OT is needed,it will be covered. documented in this encounter Plan of Treatment Not on filedocumented as of this encounter Visit Diagnoses Not on filedocumented in this encounter Care Teams Senior Procurement Manager Relationship Specialty Start Date End Date Lynda Cerda MD PCP - General 08/16/[address] [place] [address] [address] [place] [phone] documented as of this encounter
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
--- OUTSIDE RECORDS SUMMARY | 2021-11-01 01:02 | XMS_ITS | Encounter Summary ---
:1960 Author Organization [facility] Address [address] [place] [address] Care Team Providers Name Role Phone Unavailable Primary Care Provider Unavailable Encounter Details Date Type Department Care Team Description 08/14/2008 Orders Only [facility] Kaitlynn Cerda MD Laboratory Services - [address] [place], [place] [address] [address] [place] [address] [phone] Social History Tobacco Use Types Packs/Day Years Used Date Never Assessed Sex Assigned at Date Recorded Not on file documented as of this encounter Plan of Treatment Not on filedocumented as of this encounter Procedures Procedure Name Priority Date/Time Associated Diagnosis Comme nts SURGICAL PATHOLOGY Routine 08/14/2008 0:00 EDT Re sults for this procedure are i n the results section. documented in this encounter Results SURGICAL PATHOLOGY (08/14/2008 0:00 EDT) Pathology Report: SURGICAL PATHOLOGY REPORT ? [facility] Reports generated via electr Biopt[employer] interface contain original data; ? LAB however they are lacking the format of the original report. ? Caution should be taken when reading/interpreting unformatted reports. ? Name: ? HUIZAR, ARAVIND J ? Accession #: ? [id number] ? : ? 1960 (Age: 47) ??F ? Collec t Date: ? 08/14/2008 ? Location: ? [facility] ? R eceive Date: ? 08/15/2008 ? Provider: STERLING M DOBBERTIN MD ? Copy to: ? Final Pathologic Diagnosis: ? Endometrium, biopsy: ? 1. ?Proliferati ve endometrium. ? - No cytologic atypia . ??See comment. ? 2. ?? Tubal metaplasi a. ? Comment: ? This case has been re viewed at the intradepartmental consensus conference. (Dr. Maier)/mpl ? Document reviewed and electr onically signed by: ? Kirk Maier MD ? Report ??Date: 08/16/2008 17 :35 ? By the signature above, the attending physician certifies that he/she has ? personally conducted a gross and/or microscopic examination of the described ? specimens and rendered or co nfirmed the above diagnosis. ? Specimen(s) Received: ? Endometrial bx ? Clinical History: ? DUB ? Gross Description: ? Received in formalin labelled Aravind Huizar and endometrial bx is a 1.0 x 0.7 x 0.2 cm aggregate of hamilton-brown soft tissue. ??The specimen is ? submitted entirely in one ca ssette following filtration. ??/ljn ? End of Report ? Specimen Performing Organization Address City/State/ZIP Code Phon e Number [facility] [address] [place] [id number] [address] [facility] [address] [place] [address] documented in this encounter Visit Diagnoses Not on filedocumented in this encounter
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
--- OUTSIDE RECORDS SUMMARY | 2021-11-01 01:02 | XMS_ITS | Encounter Summary ---
:1960 Author Organization [facility] Address [address] [place] [address] Care Team Providers Name Role Phone Lynda Cerda MD Primary Care Provider Reason for Visit Reason Onset Date Comments Orders (Non Pre-visit) 02/25/2010 need further orde rs to continue with Physical Therapist Encounter Details Date Type Department Care Team Description 02/25/2010 Telephone [facility] Angelique Irizarry RN Orde rs (Non Pre-visit) Acute Care Surgery - (need f urther orders to Main [place] continue with Physical [address] [facility] Therapist) [place], [place] [id number] Social History Tobacco Use Types Packs/Day Years Used Date Current Every Day Smoker 1 23 Alcohol Use Standard Drinks/Week Comments Yes 16.52866181100550183 (1 standard drink = 0.6 oz pure [...] Telephone Encounter - Angelique Irizarry RN - 02/25/2010 1501 EST Notes received from PT but no statement or their recommendation on how long the therapy should continue. The PT dept. will talk with Dr. Wilks to schedule a appointment with him for another evaluationto determine if patient needs to continue or next plan. We will hold off on referral as patient willfollow up with Dr. Wilks elephone Encounter - Angelique Irizarry RN - 02/25/[address] Wilks's office called to get further orders to continue PT for patient. Last visit was 01/10. Advised to have notes faxed to us to see what recommendations are from PT and I will then review with Dr. Quintero to get a authorization for further visits with PT and will call the office . documented in this encounter Plan of Treatment Not on filedocumented as of this encounter Visit Diagnoses Not on filedocumented in this encounter Care Teams Account Manager Trainee Relationship Specialty Start Date End Date Lynda Cerda MD PCP - General 08/16/[address] [place] [address] [address] [place] [address] documented as of this encounter
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
--- OUTSIDE RECORDS SUMMARY | 2021-11-01 01:02 | XMS_ITS | Encounter Summary ---
:1960 Author Organization [facility] Address [address] [place] [address] Care Team Providers Name Role Phone Lynda Cerda MD Primary Care Provider Reason for Visit Reason Onset Date Comments Post-OP Follow Up 06/28/2010 Revision of scar on left wrist on 06/26/[address] Kathleen Quintero Encounter Details Date Type Department Care Team Description 06/28/2010 Telephone [facility] Angelique Irizarry RN Post -OP Follow Up Acute Care Surgery - (Revisi on of scar on Main [place] left wrist on 06/26/10 by [address] [facility] [address] Kathleen Quintero) [place] [address] Social History Tobacco Use Types Packs/Day Years Used Date Current Every Day Smoker 1 23 Alcohol Use Standard Drinks/Week Comments Yes 16.21144581848992238 (1 standard drink = 0.6 oz pure [...] Telephone Encounter - Angelique Irizarry RN - 06/28/2010 1227 EDT After reviewing with Jose MEJIA, patient does need to keep hand and wrist out of water so she should use a plastic bag over the hand and wrist when showering. She is to not wear her compression glove and after removal of the dressing she does not need to have another dressing on. She can apply aguaze wrap with bacitracin ointment if she wishes for protection or if any drainage. Call with any signs of infection such as: redness,swelling, warmth to touch, fever,increase pain, or drainage. Follow up appointment on , 07/04/10. elephone Encounter - Angelique Irizarry RN - 06/28/2010 1022 EDT Spoke with patient who states she is having more pain then she thought she would have but getting better today. Will be taking dressing off left wrist this afternoon when her daughter is available, james has questions about care after that. 1. Should she get hand wet in the shower or should she cover with a plastic bag? 2. Should she wear her compression glove? 3. What type of dressing should she use after the removal and how to apply, or does she not need a dressing on? I will check with Dr. Quintero this morning and call patient back with answers after reviewing this with MD. documented in this encounter Plan of Treatment Not on filedocumented as of this encounter Visit Diagnoses Not on filedocumented in this encounter Care Teams Vehicle Check In Clerk Relationship Specialty Start Date End Date Lynda Cerda MD PCP - General 08/16/[address] [place] [address] [address] [place] [phone] documented as of this encounter
--- OUTSIDE RECORDS SUMMARY | 2021-11-01 01:02 | XMS_ITS | Encounter Summary ---
:1960 Author Organization [facility] Address [address] [place] [address] Care Team Providers Name Role Phone Lynda Cerda MD Primary Care Provider Encounter Details Date Type Department Care Team Description 02/13/2011 Abstract [facility] Guillermo & Jean-Claude Berumen MD Upper Extremity Program - [address] [employer] [address] [address] [place] [address] [phone] Social History Tobacco Use Types Packs/Day Years Used Date Current Every Day Smoker 1 23 Alcohol Use Standard Drinks/Week Comments Yes 16.04290951366892222 (1 standard drink = 0.6 oz pure [...] on filedocumented in this encounter Care Teams Director Cloud Transformation Relationship Specialty Start Date End Date Lynda Cerda MD PCP - General 08/16/[address] [place] [phone] documented as of this encounter
--- OUTSIDE RECORDS SUMMARY | 2021-11-01 01:02 | XMS_ITS | Encounter Summary ---
:1960 Author Organization [facility] Address [address] [place] [address] Care Team Providers Name Role Phone Lynda Cerda MD Primary Care Provider Encounter Details Date Type Department Care Team Description 06/11/2010 Abstract [facility] Guillermo & Jean-Claude Berumen MD Upper Extremity Program - [address] [employer] [address] [address] [place] [address] [phone] Social History Tobacco Use Types Packs/Day Years Used Date Current Every Day Smoker 1 23 Alcohol Use Standard Drinks/Week Comments Yes 16.85465061009368783 (1 standard drink = 0.6 oz pure [...] on filedocumented in this encounter Care Teams Small Order Cutter Relationship Specialty Start Date End Date Lynda Cerda MD PCP - General 08/16/[address] [place] [phone] documented as of this encounter
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
--- OUTSIDE RECORDS SUMMARY | 2021-11-01 01:02 | XMS_ITS | Encounter Summary ---
:1960 Author Organization [facility] Address [address] [place] [address] Care Team Providers Name Role Phone Lynda Cerda MD Primary Care Provider Reason for Visit Reason Onset Date Comments Prior Auth, Other (i.e. radiology, etc.) 11/14/2010 Encounter Details Date Type Department Care Team Description 11/14/2010 Telephone [facility] GENERAL SURGERY Guzman Quintero, Prior Auth, Other (i.e. [address] MD radiology, etc.) [place] [address] [address] [facility] [phone] [place] [phone] Social History Tobacco Use Types Packs/Day Years Used Date Current Every Day Smoker 1 23 Alcohol Use Standard Drinks/Week Comments Yes [id number] (1 standard drink = 0.6 oz pure [...] Notes Telephone Encounter - Beatrice Anne - 11/14/2010 1522 EDT DOS - 12/03/2010 - CPT - 94007 - ICD9 - 719.43, 944.30 - [place] Medicaid - [id number] - Case# [id number] signed by Beatrice Anne at 11/14/2010 15:22 EDTdocumented in this encounter Plan of Treatment Not on filedocumented as of this encounter Visit Diagnoses Not on filedocumented in this encounter Care Teams Public Improvement Inspector Relationship Specialty Start Date End Date Lynda Cerda MD PCP - General 08/16/[address] [place] [address] [address] [place] [phone] documented as of this encounter
--- OUTSIDE RECORDS SUMMARY | 2021-11-01 01:02 | XMS_ITS | Encounter Summary ---
:1960 Author Organization [facility] Address [address] [place] [address] Care Team Providers Name Role Phone Lynda Cerda MD Primary Care Provider Encounter Details Date Type Department Care Team Description 08/30/2009 Hospital Encounter [facility] Guzman Pickett MD [place] [address] [facility] [address] [place] [phone] Social History Tobacco Use Types Packs/Day Years [...] Code Departure Means Destination Home or Self Assisted documented in this encounter Plan of Treatment Not on filedocumented as of this encounter Visit Diagnoses Not on filedocumented in this encounter Care Teams Development Eng Relationship Specialty Start Date End Date Lynda Cerda MD PCP - General 08/16/[address] [place] [address] [address] [place] [phone] documented as of this encounter
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
--- OUTSIDE RECORDS SUMMARY | 2021-11-01 01:02 | XMS_ITS | Encounter Summary ---
:1960 Author Organization [facility] Address [address] [place] [address] Care Team Providers Name Role Phone Lynda Cerda MD Primary Care Provider Encounter Details Date Type Department Care Team Description 08/02/[address] [facility] Guzman Pickett MD [place] [address] [facility] [address] [place] [phone] Social History Tobacco Use Types Packs/Day Years [...] Code Departure Means Destination Home or Self Prison documented in this encounter Plan of Treatment Not on filedocumented as of this encounter Visit Diagnoses Not on filedocumented in this encounter Care Teams Radio Time Buyer Relationship Specialty Start Date End Date Lynda Cerda MD PCP - General 08/16/[address] [place] [address] [address] [place] [phone] documented as of this encounter
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
--- OUTSIDE RECORDS SUMMARY | 2021-11-01 01:03 | XMS_ITS | Encounter Summary ---
:1960 Author Organization [facility] [place] [address] Care Team Providers Name Role Phone Lynda Cerda MD Primary Care Provider Encounter Details Date Type Department Care Team Description 07/16/2015 Hospital Encounter XRay at [facility] [place] [facility] KikoJoseph altamiranomarlo Corral, Left wrist pain [address] [facility] [id number] [facility]THOP[facility] SURGERY [place], [place] [address] Social History Tobacco Use Types Packs/Day Years Used Date Current Every Day Smoker Cigarettes 1 27 Smokeless Tobacco: Never Used Alcohol Use Standard [...] Name Priority Date/Time Associated Diagnosis Comme nts XR WRIST 3 VIEWS Routine 07/16/2015 2:16 PM Left wrist pain Re sults for this LEFT EDT procedure are i n the results section. documented in this encounter Results XR wrist complete minimum 3 views Left (GENERIC) (07/16/2015 2:16 PM EDT) Anatomical Region Laterality Modality Left Digital Radiography Specimen (Source) Anatomical Location Collection Method / Collectio n Time Received Time / Laterality Volume Impressions 07/16/2015 2:34 PM EDT No acute osseous abnormalities. Subtle scapholunate widening on the frontal view. Narrative 07/16/2015 2:34 PM EDT EXAMINATION: XR WRIST COMPLETE MINIMUM 3 VIEWS LEFT CLINICAL HISTORY: LEFT WRIST PAIN 2ND OP IN TECHNIQUE: Frontal, oblique, lateral, an d scaphoid specific views of the left wrist, 4 views. COMPARISON: Outside facility left wrist MRI of 01/11/2011. FINDINGS: Chronic changes of the DRUJ. Mild degene rative change at the first carpometacarpal joint. No acute fracture lucencies. There is subtle/the suggestion of mild scapholunate widening . Procedure Note Cody Andrews MD - 07/16/2015Format ting of this note might be different from the original. EXAMINATION: XR WRIST COMPLETE MINIMUM 3 VIEWS LEFT CLINICAL HISTORY: LEFT WRIST PAIN 2ND OP IN TECHNIQUE: Frontal, oblique, lateral, an d scaphoid specific views of the left wrist, 4 views. COMPARISON: Outside facility left wrist MRI of 01/11/2011. FINDINGS: Chronic changes of the DRUJ. Mild degene rative change at the first carpometacarpal joint. No acute fracture lucencies. There is subtle/the suggestion of mild scapholunate widening . IMPRESSION No acute osseous abnormalities. Subtle s capholunate widening on the frontal view. César Boswell MD IMG DX ORDERABLES documented in this encounter Visit Diagnoses Diagnosis Left wrist pain Pain in joint, forearm documented in this encounter Care Teams Insurance Processing Clerk Relationship Specialty Start Date End Date Lynda Cerda MD PCP - General 09/09/[address] [place] [address] documented as of this encounter
--- OUTSIDE RECORDS SUMMARY | 2021-11-01 01:03 | XMS_ITS | Encounter Summary ---
:1960 [place] [address] Care Team Providers Name Role Phone Lynda Cerda MD Primary Care Provider Reason for Visit Reason Onset Date Comments Medication Refill 09/30/2013 Encounter Details Date Type Department Care Team Description 09/30/2013 Refill [place]ology [place] [facility] Damaso Gutierrez APRN [facility] [place] [address] [place], [place] [id number] [phone] (Wo rk) Social History Tobacco Use Types [...] on file documented as of this encounter Miscellaneous Notes Addendum Note - Damaso Gutierrez APRN - 10/06/2013 7:31 AM EDT Addended by: DAMASO GUTIERREZ on: 10/06/2013 07:31 AM Modules accepted: Orders Telephone Encounter - Subha Hernandez RN - 09/30/2013 12:51 PM EDT Medication: amitiza Dosage: 24 mc bid Frequency & Route:bid Pharmacy & Phone#: [facility] [phone] Insurance & Phone #: [place] medicaid [id number] ID #: [id number] Trialed (dosage, frequency): Notes: Approved for until Dec 29 2013 documented in this encounter Plan of Treatment Not on filedocumented as of this encounter Visit Diagnoses Not on filedocumented in this encounter Care Teams Property Developer Relationship Specialty Start Date End Date Lynda Cerda MD PCP - General 09/09/[address] [place] [address] [address] [place] [address] documented as of this encounter
--- OUTSIDE RECORDS SUMMARY | 2021-11-01 01:03 | XMS_ITS | Clinical Summary ---
:1960 Author Organization [facility] [place] [address] Care Team Providers Name Role Phone Lynda Cerda MD Primary Care Provider Allergies Active Allergy Reactions Severity Noted Date Comments Codeine Nausea And Vomiting 05/18/2013 Fentanyl Other (See Comments) High 05/18/2013 tachyca rdia Linaclotide High 09/23/2013 Meloxicam 05/18/2013 Morphine High 09/23/2013 Sulfa (Sulfonamide Antibiotics) Rash 4 Tramadol Low 05/18/2013 Trimethoprim Rash 05/18/2013 Medications Medication Sig Dispensed Refills Start Date End Date Status oxyCODONE (OXYCONTIN) Take 20 mg by 0 Active 20 mg CR tablet mouth 3 times daily. oxyCODONE-acetaminophe Take 1 tablet by 0 Active n (PERCOCET) 5-325 mg mouth every 4 per tablet hours as needed. ALPRAZolam (XANAX) 1 Take 1 mg by 0 Active mg tablet mouth. 1.5 mg night, 0.5 mg daily prn multivitamin Take 1 tablet by 0 Active (THERAGRAN) Tablet mouth daily. Ibuprofen (ADVIL Take by mouth. 0 Active LIQUI-GEL) 200 mg Extra strength Capsule Active Problems Problem Noted Date Pain in left wrist 06/20/2015 Drug-induced constipation 05/18/2013 Social History Tobacco Use Types Packs/Day Years Used Date Current Every Day Smoker Cigarettes 1 Smokeless Tobacco: Never Used Tobacco Cessation: Ready to Quit: No; Co unseling Given: Yes Alcohol Use Standard Drinks/Week Comments Yes 0 [...] Sign Reading Time Taken Comments Blood Pressure 143/111 09/03/2015 4:04 PM EDT Pulse 77 09/03/2015 4:04 PM EDT Temperature - - Respiratory Rate 16 06/30/2013 4:26 PM EDT Oxygen Saturation 98% 06/30/2013 4:26 PM EDT Inhaled Oxygen Concentration - - Weight 52.2 kg (115 lb) 09/03/2015 4:04 PM EDT verbal Height 152.4 cm (5') 09/03/2015 4:04 PM EDT verbal Body Mass Index 22.46 09/03/2015 4:04 PM EDT Plan of Treatment Health Maintenance Due Date Last Done Comments Covid-19 Vaccine (#1) 1965 HIV screen 1978 Hepatitis C Screening 1978 Tdap adult 11/22/1979 Tetanus vaccine 11/22/1979 HPV test 1990 PAP Smear 1990 Breast Cancer Share Decision Needed 2000 Breast Cancer screening 2010 Zoster vaccine (1 of 2) 2010 Advance Directive 11/22/2015 Colonoscopy 06/30/2018 06/30/2013, 06/30/2013 Influenza (Flu) vaccine (1 of 1 - 10/24/2021 Influenza standard series) Insurance Payer Benefit Plan / Subscriber ID Effective Dates Phone Addre ss Type Group [place]ICAID [place]ICA[place] [id number] 2015-Stanley [phone] [address] [facility] [address] [address] [place], [place] [address] Care Teams Patternmaker Wood Relationship Specialty Start Date End Date Lynda Cerda MD PCP - General 09/09/[address] [place] [address]
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
--- OUTSIDE RECORDS SUMMARY | 2021-11-01 01:03 | XMS_ITS | Encounter Summary ---
:1960 Author Organization [facility] [place] [address] Care Team Providers Name Role Phone Lynda Cerda MD Primary Care Provider Reason for Visit Reason Onset Date Comments Medication Refill 06/20/2015 Encounter Details Date Type Department Care Team Description 06/20/2015 Refill Acute Pain Services Chris Francis MD Chronic bilateral [facility] [place] [address] [facility] [phone] [place] [address] (Wo rk) Social History Tobacco Use Types [...] as of this encounter Visit Diagnoses Diagnosis Chronic bilateral thoracic back pain documented in this encounter Care Teams Railroad Maintenance Clerk Relationship Specialty Start Date End Date Lnyda Cerda MD PCP - General 09/09/[address] [place], [place] [address] documented as of this encounter
--- OUTSIDE RECORDS SUMMARY | 2021-11-01 01:03 | XMS_ITS | Encounter Summary ---
:1960 Author Organization [facility] [place] [address] Care Team Providers Name Role Phone Lynda Cerda MD Primary Care Provider Encounter Details Date Type Department Care Team Description 06/05/2015 Telephone Nephrology Hypertens ion at [facility] [place] [address] Social History Tobacco Use Types Packs/Day Years [...] this encounter Miscellaneous Notes Telephone Encounter - Eliane Diego - 06/05/2015 9:35 AM EDT Left message with patient tocall back and make follow up appointment . documented in this encounter Plan of Treatment Not on filedocumented as of this encounter Visit Diagnoses Not on filedocumented in this encounter Care Teams Property Site Manager Relationship Specialty Start Date End Date Lynda Cerda MD PCP - General 09/09/[address] [place] [address] documented as of this encounter
--- OUTSIDE RECORDS SUMMARY | 2021-11-01 01:03 | XMS_ITS | Encounter Summary ---
:1960 Author Organization [facility] Address [address] [place] [address] Care Team Providers Name Role Phone Lynda Cerda MD Primary Care Provider Encounter Details Date Type Department Care Team Description 02/28/1999 Results Only [facility] [place] - Darwin Chris MD conversion [address] [place] [address] Social History Tobacco Use Types Packs/Day Years Used Date Never Assessed Sex Assigned at Date Recorded Not on file documented as of this encounter Plan of Treatment Not on filedocumented as of this encounter Procedures Procedure Name Priority Date/Time Associated Diagnosis Comme nts CYTOPATHOLOGY Routine 02/28/1999 10:08 EST Result s for this procedure are i n the results section . documented in this encounter Results CYTOPATHOLOGY (02/28/1999 10:08 EST) Pathology Report: CYTOPATHOLOGY REPORT [facility] Reports generated via electronic interface contain devon ginal data; however they are lacking the format of the original re port. Caution should be taken when reading/interpreting unfo rmatted reports. Name: ? ARAVIND HUIZAR ? Accession #: ? [id number] : ? 1960 (Age: 38) ??F ?Collect Date: ? 07/1999 Location: ?Receive Date: ? 02/28/1999 Provider: ?DARWIN BENITES MD Copy to: ?DARWIN BENITES MD ? Specimen/Source: ?[employer] ThinPrep Last Menstrual Period: ? GYNECOLOGIC ??CYTOPATHOLOG Y ??REPORT Name: ARAVIND HUIZAR ?F [facility] : 1960 ?? 38Y F ?Cl ient ID: [id number] SS#: [id number] ? Ac cession #: [id number] Clinician: DARWIN BENITES MD ?? Location: [facility] ??Copy to: ?? Specimen: ?[employer] ThinPrep ? Source: Cervix/Endocervix ?Collected: 02/26/99 ? Received: 02/28/1999 ?LMP: ?Hormone Therapy: No ? : No ? Radiation Therapy: No ?? Post : No ?Chemotherapy: No ?IUD: No ? Prev Abnormal Pap: Yes ?? Clinical Hx: Dysplasia, Rx cryo , NL exam. ?(Blank saavedra indicate information not provided on requisition) SPECIMEN ADEQUACY: ? Satisfactory But Limited By ? Absence Of A Transformation Zone Component ?? GENERAL CATEGORIZATION: ? EPITHELIAL CELL ABNORMALITY ?? DESCRIPTIVE DIAGNOSIS: ? 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 Cannot Rule Out Squamous Intraepithelial Lesion (MARISSA) ?? RECOMMENDATION: ? Recommend Clinical Correlation Or Further Evalu ation, As ? Clinically Indicated ? Reviewed And Electronically Signed By: ? Ross Lezama M.D. ? Report Date : ?? 03/11/1999 [employer] Archived Tests - Final Diagnosis Text Field: Clinical History : ;Dysplasia, Rx cryo , NL exam. ? Document reviewed and electronically signed by: ? Conversion ? Report Date: ??03/11/1999 00:00 End of Report Specimen Performing Organization Address City/State/ZIP Code Phon e Number [facility] [address] [place] [address] SERVICES [facility] [address] [place] [address] documented in this encounter Visit Diagnoses Not on filedocumented in this encounter Care Teams Sewing Pattern Layout Technician Relationship Specialty Start Date End Date Lynda Cerda MD PCP - General 08/16/[address] [place] [address] [address] [place] [address] documented as of this encounter
--- OUTSIDE RECORDS SUMMARY | 2021-11-01 01:03 | XMS_ITS | Encounter Summary ---
:1960 Author Organization [facility] [place] [address] Care Team Providers Name Role Phone Lynda Cerda MD Primary Care Provider Reason for Visit Reason Onset Date Comments Patient Not Seen 04/29/2014 Encounter Details Date Type Department Care Team Description 04/20/2014 Follow-Up Nephrology Hypertension at [facility] A[facility], PATIENT NOT SEEN [facility] [place] [place] [facility] [place] [address] NEPHROLOGY DEPT. [phone] [place] [id number] (Wo rk) Social History Tobacco Use Types [...] Concentration - - Weight - - Height 152.4 cm (5') 04/20/2014 7:52 AM EST Body Mass Index - - documented in this encounter Progress Notes Harshal Amato MD - 04/29/2014 8:50 AM EST This patient was not seen in this encounter. documented in this encounter Plan of Treatment Not on filedocumented as of this encounter Visit Diagnoses Diagnosis PATIENT NOT SEEN documented in this encounter Care Teams Learning Design Specialist Relationship Specialty Start Date End Date Lynda Cerda MD PCP - General 09/09/[address] [place] [address] documented as of this encounter
--- OUTSIDE RECORDS SUMMARY | 2021-11-01 01:03 | XMS_ITS | Encounter Summary ---
:1960 Author Organization [facility] [place] [address] Care Team Providers Name Role Phone Savita Cruz APRN Primary Care Provider [phone] Encounter Details Date Type Department Care Team Description 01/11/2011 Hospital Encounter Radiology Library at [facility] [place] Darshana, [place] [address] Social History Tobacco Use Types Packs/Day Years Used Date Never Assessed Sex Assigned at Date Recorded Not on file documented as of this encounter Medications at Time of Discharge Medication Sig Dispensed Refills Start Date End Date ALPRAZolam (XANAX) 0.5 mg 0.5MG = 1 Tablet(s), 0 04/21/2006 09/23/2013 tablet PO, Twice daily PRN documented as of this encounter Plan of Treatment Not on filedocumented as of this encounter Procedures Procedure Name Priority Date/Time Associated Diagnosis Comme [facility] FILM LIBRARY Routine 01/11/2011 12:00 AM Pain Results for this STORAGE ONLY MR EST procedure ar e in WRIST the results section. documented in this encounter Results Film Library- Storage only MR Wrist (01/11/2011 12:00 AM EST) Specimen (Source) Anatomical Location Collection Method / Collectio n Time Received Time / Laterality Volume Narrative HOLLY - 06/29/2015 6:27 PM EDT This exam is for storage only and is aut o-finalizing. Dr Melony Gilliland IMG FILM LIBRARY ORDERABLES Performing Organization Address City/State/ZIP Code Phon e Number [place], [place] documented in this encounter Visit Diagnoses Diagnosis Pain Generalized pain documented in this encounter Care Teams Log Raft Worker Relationship Specialty Start Date End Date Savita Cruz APRN PCP - General 01/15/10 05/17/13 [address] [place] [address] documented as of this encounter
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
--- OUTSIDE RECORDS SUMMARY | 2021-11-01 01:03 | XMS_ITS | Encounter Summary ---
:1960 Author Organization [facility] [place] [address] Care Team Providers Name Role Phone Lynda Cerda MD Primary Care Provider Encounter Details Date Type Department Care Team Description 07/16/2015 Orders Only [facility]edics at [facility] César Boswell MD [facility] [place] [address] ORTHOPAEDIC SURGERY [phone] [place] [address] (Wo rk) Social History Tobacco Use Types [...] on filedocumented in this encounter Care Teams Research Laboratory Specialist Relationship Specialty Start Date End Date Lynda Cerda MD PCP - General 09/09/[address] [place] [address] documented as of this encounter
--- OUTSIDE RECORDS SUMMARY | 2021-11-01 01:03 | XMS_ITS | Encounter Summary ---
:1960 Author Organization [facility] [place] [place] [address] Care Team Providers Name Role Phone Lynda Cerda MD Primary Care Provider Encounter Details Date Type Department Care Team Description 10/05/2019 Hospital Encounter [facility] [place] [address] [facility] [phone] [facility] [place], [place] [address] Social History Tobacco Use Types [...] on filedocumented in this encounter Care Teams Car Repairer Pullman Relationship Specialty Start Date End Date Lynda Cerda MD PCP - General 09/09/[address] [place] [address] documented as of this encounter
--- OUTSIDE RECORDS SUMMARY | 2021-11-01 01:03 | XMS_ITS | Encounter Summary ---
:1960 Author Organization [facility] [place] [address] Care Team Providers Name Role Phone Lynda Cerda MD Primary Care Provider Reason for Visit Consultation (Routine) - Closed Specialty Diagnoses / Procedures Referred By Contact Refer red To Contact Neurology Diagnoses Pain in left wrist Ana Maria Klein PA [facility] Neurology [address] [place] [address] [place] [address] Fax: Referral ID Status Reason Start Date Expiration Date Visits V isits Requested Authorized [id number] Closed Consult, 07/16/2015 07/15/2016 1 1 Test & Treat Encounter Details Date Type Department Care Team Description 09/03/2015 Office Visit Neurology at [facility] Fermín Westbrook, Left hand paresthesia; [facility] [place] [address] NEUROLOGY DEPT. [phone] [place], [place] [address] Social History Tobacco Use Types [...] Sign Reading Time Taken Comments Blood Pressure 150/80 09/03/2015 3:01 PM EDT Pulse 64 09/03/2015 3:01 PM EDT Temperature - - Respiratory Rate - - Oxygen Saturation - - Inhaled Oxygen Concentration - - Weight 52.2 kg (115 lb) 09/03/2015 3:01 PM EDT Height 152.4 cm (5') 09/03/2015 3:01 PM EDT Body Mass Index 22.46 09/03/2015 3:01 PM EDT documented in this encounter Progress Notes Fermín Westbrook MD - 09/03/2015 3:48 PM EDT EDX studies done at the request of Ana Maria Klein. All results are normal. Report to be scanned into eDH. Fermín Westbrook documented in this encounter Plan of Treatment Scheduled Referrals Name Type Priority Associated Diagnoses Order S chedule Referral to Outpatient Referral Routine Pain in left wrist Or dered: Neurology 07/16/2015 documented as of this encounter Visit Diagnoses Diagnosis Left hand paresthesia Disturbance of skin sensation Pain in left wrist Pain in joint, forearm documented in this encounter Care Teams Factory Superintendent Relationship Specialty Start Date End Date Lynda Cerda MD PCP - General 09/09/[address] [place] [address] [address] [place] [address] documented as of this encounter
--- OUTSIDE RECORDS SUMMARY | 2021-11-01 01:03 | XMS_ITS | Encounter Summary ---
:1960 Author Organization [place] [address] Care Team Providers Name Role Phone Lynda Cerda MD Primary Care Provider Encounter Details Date Type Department Care Team Description 09/03/2015 External Results Neurology at [facility] Fermín Westbrook MD [facility] [address] NEUROLOGY DEPT. [phone] [place], [place] [address] (Wo rk) Social History Tobacco Use Types [...] Name Priority Date/Time Associated Diagnosis Comme nts EMG SCAN Routine 09/03/2015 documented in this encounter Results Scan Doc: EMG (09/03/2015) Narrative This result has an attachment that is no t available. Fermín Westbrook MD MEDIA MGR SCAN EXT ORDR/RSLT documented in this encounter Visit Diagnoses Not on filedocumented in this encounter Care Teams Merry Go Round Operator Relationship Specialty Start Date End Date Lynda Cerda MD PCP - General 09/09/[address] [place] [address] documented as of this encounter
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
--- OUTSIDE RECORDS SUMMARY | 2021-11-01 01:03 | XMS_ITS | Encounter Summary ---
:1960 Author Organization [facility] Address [address] [place] [address] Care Team Providers Name Role Phone Lynda Cerda MD Primary Care Provider Encounter Details Date Type Department Care Team Description 03/02/2000 Results Only [facility] Darwin Chris MD conversion [address] [place] [address] Social History Tobacco Use Types Packs/Day Years Used Date Never Assessed Sex Assigned at Date Recorded Not on file documented as of this encounter Plan of Treatment Not on filedocumented as of this encounter Procedures Procedure Name Priority Date/Time Associated Diagnosis Comme nts CYTOPATHOLOGY Routine 03/02/2000 0:00 EST Results for this procedure are i n the results section . documented in this encounter Results CYTOPATHOLOGY (03/02/2000 0:00 EST) Pathology Report: CYTOPATHOLOGY REPORT [facility] Reports generated via electronic interface contain devon ginal data; however they are lacking the format of the original re port. Caution should be taken when reading/interpreting unfo rmatted reports. Name: ? ARAVIND HUIZAR ? Accession #: ? [id number] : ? 1960 (Age: 39) ??F ?Collect Date: ? 09/2000 Location: ? [facility] ? Receive Date : ? 03/03/2000 Provider: ?DARWIN BENITES MD Copy to: ? Specimen/Source: ?ThinPrep Pap Test, Cervix/ Endocervix Last Menstrual Period: ? 02/19/00 Previous Gynecologic Pathology: ? MARISSA Treatment History: ? Cryotherapy: for dysplasia ? SPECIMEN ADEQUACY ? Satisfactory for evaluation. GENERAL CATEGORIZATION ? Within Normal Limits ? Document reviewed and electronically signed by: ? PHIL Rendon(ASCP) ? Report Date: ??03/03/2000 14:31 End of Report Specimen Performing Organization Address City/State/ZIP Code Phon e Number [facility] [address] [place] [address] SERVICES [facility] [address] [place] [address] documented in this encounter Visit Diagnoses Not on filedocumented in this encounter Care Teams Faith Doctor Relationship Specialty Start Date End Date Lynda Cerda MD PCP - General 08/16/08 [address] [place] [id number] documented as of this encounter
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
--- OUTSIDE RECORDS SUMMARY | 2021-11-01 01:03 | XMS_ITS | Encounter Summary ---
:1960 Author Organization [facility] Address [address] [place] [address] Care Team Providers Name Role Phone Lynda Cerda MD Primary Care Provider Encounter Details Date Type Department Care Team Description 04/21/2002 Results Only [facility] - Erik Kerr MD conversion [address] [place] [id number] Social History Tobacco Use Types Packs/Day Years Used Date Never Assessed Sex Assigned at Date Recorded Not on file documented as of this encounter Plan of Treatment Not on filedocumented as of this encounter Procedures Procedure Name Priority Date/Time Associated Diagnosis Comme nts SURGICAL PATHOLOGY Routine 04/21/2002 0:00 EST Re sults for this procedure are i n the results section. documented in this encounter Results SURGICAL PATHOLOGY (04/21/2002 0:00 EST) Pathology Report: SURGICAL PATHOLOGY REPORT AARON ROBERSON Reports generated via electronic interface contain devon ginal data; LAB however they are lacking the format of the original re port. Caution should be taken when reading/interpreting unfo rmatted reports. Name: ? ARAVIND HUIZAR ? Accession #: ? [id number] ? : ? 1960 (Age: 41) ??F ? Collect Date: ? 04/21/2002 ? Location: ? [facility] ? Receive Date: ? 003 ? Provider: ERIK RIDLEY MD Copy to: OLIVA CHAPA MD ? Final Pathologic Diagnosis: ? Endometrium, biopsy: - Proliferative endometrium with extensive stromal onelia akdown. Document reviewed and electronically signed by: MEKHI CHAPMAN MD Report ??Date: 04/26/2002 17:27 By the signature above, the attending physician certif ies that he/she has personally conducted a gross and/or microscopic examin ation of the described specimens and rendered or confirmed the above diagnosi s. Specimen(s) Received: ? Endometrial bx Clinical History: ? AUB, no hormones; LMP: 04/07/02 Gross Description: ? Received in formalin labelled Huizar and endometrial bx is a 0.8 x 0.7 x 0.2 cm aggregate of hamilton, soft tissue admixed wit h blood clot. ??The specimen is entirely submitted in one cassette. ??(Kathleen Ascencio/[facility] End of Report Specimen Performing Organization Address City/State/ZIP Code Phon e Number [facility] [address] [place] [address] [facility] [address] [place] [address] documented in this encounter Visit Diagnoses Not on filedocumented in this encounter Care Teams Internet Designer Relationship Specialty Start Date End Date Lynda Cerda MD PCP - General 08/16/[address] [place] [address] documented as of this encounter
--- OUTSIDE RECORDS SUMMARY | 2021-11-01 01:03 | XMS_ITS | Encounter Summary ---
:1960 Author Organization [facility] [place] [address] Care Team Providers Name Role Phone None Primary Care Provider Unavailable Encounter Details Date Type Department Care Team Description 06/30/2013 Surgery Gastroenterology at [facility] Gasper Salazar, COLONOSCOPY, [facility] Ana María davis MD [place], [place] [address] [facility] LESION BY SNARE ([facility] [phone] DR [place]) GASTROENTEROLOGY DEPT. [place] [address] Social History Tobacco Use Types Packs/Day Years [...] Sign Reading Time Taken Comments Blood Pressure 143/91 06/30/2013 2:58 PM EDT Pulse 78 06/30/2013 2:58 PM EDT Temperature - - Respiratory Rate 16 06/30/2013 2:58 PM EDT Oxygen Saturation 100% 06/30/2013 2:58 PM EDT Inhaled Oxygen Concentration - - Weight - - Height - - Body Mass Index - - documented in this encounter Discharge Instructions Discharge Lis Reyes RN - 06/30/2013 4:29 PM EDT Colonoscopy and polyp removal What to expect after the procedure You may feel a little more gassy or bloated than usual, this is normal. You should expect the return of normal bowel function in the next 2 to 3 days. Because some polyps were removed, you may see a little blood with the next few bowel movements, this should be a small amount ( less than a few tablespoons) and will resolve on it's own. ACTIVITY Because of the sedation that you received Your judgement and reaction time are effected ?? Go home and rest for the remainder for the day. You may resume your normal activities tomorrow ?? Change from one position to the next slowly because you may lose your balance unexpectedly. ?? Be careful on stairs, as you may be unsteady. ?? Avoid strenuous activity for 48 to 72 hrs FOR THE NEXT 24 HRS ?? DO NOT DRIVE OR OPERATE MACHINERY ?? DO NOT DRINK ALCOHOLIC BEVERAGES ?? DO NOT SIGN LEGAL DOCUMENTS ?? If you are a smoker: DO NOT SMOKE WHILE YOU ARE ALONE Diet ?? Start by eating small portions of foods that ordinarily will not upset your stomach, avoid gas producing foods for the next few days. ?? Be gentle with what you choose to start with ?? A soft diet may be helpful for the next 3 days as this may help to keep your stools soft. ?? Drink plenty of fluids ( unless your doctor has told you not to). Medicines Avoid medicines that influence the way your blood clots for the next week. These would include anti-inflammatory medicine, such as ibuprofen( Advil, Motrin) and naproxen ( Aleve). If you need something for discomfort, Tylenol (Acetaminophen) is safe if used as directed. Your Doctor will tell you whento restart your prescribed blood thinners The IV site-- slight tenderness, or redness is normal, you can use warm compresses if you get concerned. If the tenderness +/or redness increases or foul drainage and a red streak occurs, please contact your PCP immediately. When should you call for help? Call 911 anytime you think you may need emergency care. For example If you pass out (loss of consciousness) If you pass maroon or bloody stools If you have severe belly pain Call your healthcare provider or seek immediate medical care if: Your stools are black or tar like Your stools have streaks of blood that is more pronounced with each BM You have belly pain, or your belly is swollen and firm You vomit You have a fever You are very dizzy Watch closely for changes in your health, and be sure to contact your doctor if you have any problems. Your Doctor will let you know when you will need your next colonoscopy. The results of your test andyour risk for colorectal cancer will help your doctor decide how often you need to be checked. Thursday[facility]Thursday Clinic [phone] 8a-5p Same Day Endo [phone] 7a-8p Otherwise contact [phone] and ask to speak to the risk management specialist bathroom tiling professional Follow up care is a high part of your treatment and safety. Be sure to make and go to all appointments, and call your doctor if you are having problems. Discharge instructions reviewed with patient who expresses understanding documented in this encounter Medications at Time of Discharge Medication Sig Dispensed Refills Start Date End Date oxyCODONE (OXYCONTIN) 20 Take 20 mg by mouth 0 mg CR tablet 3 times daily. oxyCODONE-acetaminophen Take 1 tablet by 0 (PERCOCET) 5-325 mg per mouth every 4 hours tablet as needed. acetaminophen (TYLENOL) Take 1,000 mg by 0 07/16/2015 500 mg tablet mouth every 6 hours as needed. thiamine 100 mg tablet Take 100 mg by 0 06/22/2014 mouth daily. ERGOCALCIFEROL, VITAMIN Take 1,000 Units by 0 06/22/2014 D2, (VITAMIN D ORAL) mouth. ALPRAZolam (XANAX) 0.5 mg 0.5MG = 1 0 04/21/2006 09/23/2013 tablet Tablet(s), PO, Twice daily PRN documented as of this encounter H&P Notes Gasper Salazar MD - 06/30/2013 3:44 PM EDT Gastroenterology and Hepatology Pre-Procedure History and Physical Exam Procedure: Colonoscopy: Indication: screening 52 y.o. yo female for avg risk screening. No family history of colon cancer or polyps. No diarrhea or rectal bleeding. Patient Active Problem List Diagnosis Code ??? Drug-induced constipation 564.09, E980.5 EXAM: HEENT: Airway examined, oropharynx clear LUNGS: Clear to auscultation HEART: Regular rate and rhythm, normal S1, S2 ABDOMEN: Normal bowel sounds, soft, non tender, non distended, A/P Proceed with the planned endoscopic procedure. Risks and benefits of the procedure explained to the patient. Consent signed. documented in this encounter Miscellaneous Notes Miscellaneous - Provider, Scanning - 06/30/2013 9:31 PM EDT Miscellaneous - Provider, Scanning - 06/30/2013 9:23 PM EDT Miscellaneous - Provider, Scanning - 06/30/2013 4:53 PM EDT Op Note - Gasper Salazar MD - 06/30/2013 4:20 PM EDT [facility] Operative Note Patient Name: Aravind Alcantara : [id number] MR#: [id number] Case Date: 06/30/2013 Surgeon: Surgeon(s) and Role: * Gasper Salazar MD - Primary Preoperative diagnosis: colon cancer screening Postoperative diagnosis: * No post-op diagnosis entered * Procedure(s): COLONOSCOPY, POLYPECTOMY, REMOVAL LESION BY SNARE Please see the Provation procedure report in the Procedures tab in eDH. documented in this encounter Plan of Treatment Not on filedocumented as of this encounter Procedures Procedure Name Priority Date/Time Associated Comments Diagnosis SURGICAL PATHOLOGY Routine 06/30/2013 4:21 PM Res ults for this REPORT EDT procedure are i n the results section. SPECIMEN TO PATHOLOGY Routine 06/30/2013 4:21 PM Results for this EDT procedure are i n the results section. SPECIMEN TO PATHOLOGY Routine 06/30/2013 4:21 PM Results for this EDT procedure are i n the results section. COLONOSCOPY Routine 06/30/2013 3:44 PM Results f or this EDT procedure are i n the results section. COLONOSCOPY, 06/30/2013 3:43 PM Colon cancer POLYPECTOMY, REMOVAL EDT screening LESION BY SNARE (WRVU 4.67) documented in this encounter Results Surgical Pathology Report (06/30/2013 4:21 PM EDT) [facility] Method Time Signature Surgical CERNER Pathology ? [facility] Report ? Provider: ?? Gasper SALAZAR ?Pt. Name: ?? ARAVIND VILLAVICENCIO ? Acc #: ?[id number] ?Pt. MRN: ?[id number] ? Col Date: ?? 06/30/2013 ?/Sex: ?1960,(52 years),Female ? Rec Date: ?? 06/30/2013 ?LOC: ?4T ? SURGICAL PATHOLOGY ? ---Pathologic Diagnosis--- ? A - Transverse colon polyp, biopsy: ? Benign colonic mucosa with marked, obscuring cautery artifact. ? B - Sigmoid polyp, biopsy: ? Hyperplastic polyp. ? CR-0 ; CR-PX ? 07/01/13 ? JRP ? 07/01/13 Verified by: ? Haja Rodriguez MD ? Pathologist ? (Electronic Si gnature) ? The attending pathologist whose signature appears o n this report has ? reviewed all diagnostic slides and has edited the tano ss and/or ? microscopic portion of the report in rendering the fi nal pathologic ? diagnosis. ? ---Gross Description--- ? A - Labeled/Fixative: Polyp-transverse, formalin. ? Quantity/Size: One, 0.3 x 0.2 x 0.1 cm. ? Tissue Description: Lozada tissues. ? Sections/Processing: (T1) ? B - Labeled/Fixative: Polyp-sigmoid, formalin. ? Quantity/Size: One, 0.3 x 0.3 x 0.1 cm. ? Tissue Description: Lozada tissues. ? Sections/Processing: (T1) ??cjl ? ---Clinical Information--- ? Specimen Submitted: ? A - Polyp- transverse ? B - Polyp- sigmoid ? Clinical History: ? 52 YO4 average risk screening ? Clinical Diagnosis: ? Not provided Specimen (Source) Anatomical Collection Method Collection Time Re ceived Time Location / / Volume Laterality 06/30/2013 4:21 PM EDT L Fabiano Salazar MD PATHOLOGY/CYTOLOGY ORDERABLE S Performing Organization Address [facility]/[place] [address] CERNER MILLENNIUM Specimen to Pathology (surgical or derm) (06/30/2013 4:21 PM EDT) Specimen Anatomical Collection Method Collection Time Receive d Time (Source) Location / / Volume Laterality AP Specimen 06/30/2013 4:21 PM 4 4:21 EDT PM EDT Narrative CERNER MILLENNIUM - 06/30/2013 4:21 PM E DT Specimen requisition ordered. ??Separate Pathology report to follow L Fabiano Salazar MD PATHOLOGY/CYTOLOGY ORDERABLE S Performing Organization Address [facility] [place] [address] CERNER MILLENNIUM Specimen to Pathology (surgical or derm) (06/30/2013 4:21 PM EDT) Specimen Anatomical Collection Method Collection Time Receive d Time (Source) Location / / Volume Laterality AP Specimen 06/30/2013 4:21 PM 4 4:21 EDT PM EDT Narrative MAY REYESIUM - 06/30/2013 4:21 PM E DT Specimen requisition ordered. ??Separate Pathology report to follow L Fabiano Salazar MD PATHOLOGY/CYTOLOGY ORDERABLE S Performing Organization Address City/State/ZIP [facility] [place] [address] CERARGELIA MILLENNIUM COLONOSCOPY (06/30/2013 3:44 PM EDT) [facility] Method Time Signature COLONOSCOPY [facility] Endoscopy Patient Name: Aravind Alcantara ? Procedure Date: 06/30/2013 3:44 PM ? Date of : 1960 ? Age: 52 ? Order #: [id number] ? Procedure: ? Colonoscopy Indications: ? Screening for colorectal malignant ? neoplasm Providers: ? L. Fabiano Salazar MD, Aggie mena, ? Kala DUMONT Technicia n Referring MD: ? Medicines: ? Monitored Anesthesia Care Complications: ? No immediate complications. Procedure: ? Pre-Anesthesia Assessment: ? - Prior to the procedure, a H istory ? and Physical was performed, a nd ? patient medications and aller gies ? were reviewed. The patient is ? competent. The risks and bene fits of ? the procedure and the sedatio n ? options and risks were discus sed with ? the patient. All questions we re ? answered and informed consent was ? obtained. Patient identificat ion and ? proposed procedure were verif ied by ? the physician in the pre-proc edure ? area in the endoscopy suite. Mental ? Status Examination: alert and ? oriented. Airway Examination: normal ? oropharyngeal airway and neck ? mobility. Respiratory Examina tion: ? clear to auscultation. CV ? Examination: normal. ASA Grad e ? Assessment: II - A patient wi th mild ? systemic disease. After revie wing the ? risks and benefits, the patie nt was ? deemed in satisfactory condit ion to ? undergo the procedure. The an esthesia ? plan was to use monitored ane sthesia ? care (MAC). Immediately prior to ? administration of medications , the ? patient was re-assessed for a dequacy ? to receive sedatives. The hea rt rate, ? respiratory rate, oxygen satu rations, ? blood pressure, adequacy of p ulmonary ? ventilation, and response to care ? were monitored throughout the ? procedure. The physical statu s of the ? patient was re-assessed after the ? procedure. ? The procedure, indications, b enefits, ? risks and alternatives were e xplained ? to the patient. Specifically ? discussed were potential ? complications including, but not ? limited to, bleeding, perfora tion, ? infection, missing a cancer, and ? adverse medication reactions. The ? patient was placed in the lef t ? lateral decubitus position, a nd a ? digital rectal exam was perfo rmed. ? The Colonoscope was inserted in the ? anus and under direct visuali zation, ? advanced to the terminal ileu m, with ? identification of the appendi ceal ? orifice and IC valve. Careful ? inspection was made as the ? colonoscope was withdrawn. Th e ? colonoscopy was performed wit rishi ? difficulty. The patient tao ated the ? procedure well. ? Findings: ? External hemorrhoids were found, and they were ? medium-sized. ? A sessile polyp was found in the sigmoid colon. The ? polyp was 5 mm in size. The polyp was removed with a ? cold snare. Resection and retrieval were complete. ? A sessile polyp was found in the mid transverse ? colon. The polyp was 6 mm in size. The polyp was ? removed with a hot snare. Resection and retrieval ? were complete. ? The terminal ileum appeared normal. ? In the cecum, there was a fold that extended across ? the cecum - as a bridge - adjacent to the IC valve. ? Otherwise, the mucosa was normal. Suspect that this ? is a normal anatomic variant. ? Impression: ?- External hemorrhoids. ? - One 5 mm polyp in the sigmo id ? colon. Resected and retrieved . ? - One 6 mm polyp in the mid ? transverse colon. Resected an d ? retrieved. ? - The examined portion of the ileum ? was normal. Recommendation: ?- Await pathology results. ? L. Fabiano Salazar MD 06/30/2013 4:33 PM Number of Addenda: 0 Note Initiated On: 06/30/2013 3:44 PM Specimen (Source) Anatomical Collection Method Collection Time Re ceived Time Location / / Volume Laterality 06/30/2013 3:44 PM EDT Unknown GENERAL SURGICAL ORDERABLES Performing Organization Address City/State/ZIP Code Phon e Number [employer] documented in this encounter Visit Diagnoses Diagnosis Colon cancer screening Special screening for malignant neoplasm s, colon documented in this encounter Administered Medications Inactive Administered Medications - up to 3 most recent administrations Medication Order MAR Action Action Date Dose Rate Site lactated ringers infusion New Bag 06/30/2013 3:13 PM EDT 100 mL/hr 100 mL/hr 100 mL/hr, Intravenous, CONTINUOUS, Starting on Merly 06/30/13 at 1515, Until Merly 06/30/13 at 1648, Endoscopy (Day of Procedure) documented in this encounter Active and Recently Administered Medications Times are shown in EDT. Continuous Medication Order 06/28/2013 06/29/2013 06/30/2013 lactated ringers infusion (CANCELED) 1513 (New Bag - Provider: Rolanda Odell RN) 100 mL/hr, at 100 mL/hr, Intravenous, CO NTINUOUS, Starting Merly 06/30/13 at 1515, Until Merly 06/30/13 at 1648, Endo (Day of Procedure) documented in this encounter Care Teams Finisher Card Tender Relationship Specialty Start Date End Date None PCP - General 05/18/13 09/08/13 None documented as of this encounter
--- OUTSIDE RECORDS SUMMARY | 2021-11-01 01:03 | XMS_ITS | Encounter Summary ---
:1960 Author Organization [facility] Address [address] [place] [address] Care Team Providers Name Role Phone Lynda Cerda MD Primary Care Provider Encounter Details Date Type Department Care Team Description 08/26/1999 Results Only [facility] Chris MD conversion [address] [place] [address] Social History Tobacco Use Types Packs/Day Years Used Date Never Assessed Sex Assigned at Date Recorded Not on file documented as of this encounter Plan of Treatment Not on filedocumented as of this encounter Procedures Procedure Name Priority Date/Time Associated Diagnosis Comme nts CYTOPATHOLOGY Routine 08/26/1999 0:00 EDT Results for this procedure are i n the results section . documented in this encounter Results CYTOPATHOLOGY (08/26/1999 0:00 EDT) Pathology Report: CYTOPATHOLOGY REPORT [facility] Reports generated via electronic interface contain devon ginal data; however they are lacking the format of the original re port. Caution should be taken when reading/interpreting unfo rmatted reports. Name: ? ARAVIND HUIZAR ? Accession #: ? [id number] : ? 1960 (Age: 38) ??F ?Collect Date: ? 04/1999 Location: ? [facility] ? Receive Date : ? 08/28/1999 Provider: ?DARWIN BENITES MD Copy to: ? Specimen/Source: ?ThinPrep Pap Test, Cervix/ Endocervix Last Menstrual Period: ? 07/31/99 Hormonal/Contraceptive Status: ? Yes Previous Gynecologic Pathology: ? HSIL: ASC-US: Treatment History: ? Cryotherapy: ? SPECIMEN ADEQUACY ? Satisfactory for evaluation. GENERAL CATEGORIZATION ? Benign Cellular Changes DESCRIPTIVE DIAGNOSIS ? Reactive cellular medina nges associated with inflammation present (includes repair). ? Document reviewed and electronically signed by: ? Deepa Braga MD ? Report Date: ??09/06/1999 08:44 End of Report Specimen Performing Organization Address City/State/ZIP Code Phon e Number [facility] [address] [place] [address] SERVICES [facility] [address] [place] [address] documented in this encounter Visit Diagnoses Not on filedocumented in this encounter Care Teams Fast Food Attendant Relationship Specialty Start Date End Date Lynda Cerda MD PCP - General 08/16/[address] [place] [id number] documented as of this encounter
--- OUTSIDE RECORDS SUMMARY | 2021-11-01 01:03 | XMS_ITS | Encounter Summary ---
:1960 Author Organization [facility] [place] [address] Care Team Providers Name Role Phone None Primary Care Provider Unavailable Encounter Details Date Type Department Care Team Description 06/30/2013 Hospital Encounter Gastroenterology at [facility] Harshal Roy MD [facility] [address] GASTROENTER[place]Y [place] [address] [facility] Gasper Stone MD [facility] [address] GASTROENTER[place] [address] [place] [address] Social History Tobacco Use Types Packs/Day [...] Sign Reading Time Taken Comments Blood Pressure 108/66 06/30/2013 4:26 PM EDT Pulse 80 06/30/2013 4:26 PM EDT Temperature - - Respiratory Rate 16 06/30/2013 4:26 PM EDT Oxygen Saturation 98% 06/30/2013 4:26 PM EDT Inhaled Oxygen Concentration - - Weight - - Height - - Body Mass Index - - documented in this encounter Discharge Instructions Discharge InstructionsMichael Lisanabelle Jackman RN - 06/30/2013 4:29 PM EDT Colonoscopy [...] you need to be checked. Thursday-Thursday Clinic [phone] 8a-5p Same Day Endo [phone] 7a-8p Otherwise contact [phone] and ask to speak to the single ending machine operator professional volleyball player Follow up care is a high part [...] Salazar MD - 06/30/2013 4:20 PM EDT [facility] Operative Note Patient Name: Aravind Alcantara : [id number] MR#: [id number] Case Date: 06/30/2013 Surgeon: Surgeon(s) and Role: [...] Surgical Pathology Report (06/30/2013 4:21 PM EDT) [facility] Method Time Signature Surgical CERNER Pathology ? [facility] Report ? Provider: ?? Gasper SALAZAR ?Pt. Name: ?? ARAVIND VILLAVICENCIO ? Acc #: ?[id number] ?Pt. MRN: ?[id number] ? Col Date: ?? 06/30/2013 ?/Sex: ?1960,(52 years),Female ? Rec Date: ?? 06/30/2013 ?LOC: ?4T ? SURGICAL PATHOLOGY ? ---Pathologic Diagnosis--- ? A - Transverse colon polyp, biopsy: ? Benign colonic mucosa with marked, obscuring cautery artifact. ? B - Sigmoid polyp, biopsy: ? Hyperplastic polyp. ? CR-0 ; CR-PX ? 07/01/13 ? JRP ? 07/01/13 Verified by: ? Michael ROONEY, Haja Wells ? Pathologist ? (Electronic Si gnature) ? [...] MD PATHOLOGY/CYTOLOGY ORDERABLE S Performing Organization Address [facility]/ZIP Code Phon e Number [address] [facility] Specimen to Pathology (surgical or derm) (06/30/2013 4:21 PM EDT) Specimen Anatomical Collection Method Collection Time Receive d Time (Source) Location / / Volume Laterality AP Specimen 06/30/2013 4:21 PM 4 4:21 EDT PM EDT Narrative [facility] - 06/30/2013 4:21 PM E DT Specimen requisition ordered. ??Separate Pathology report to follow L Fabiano Salazar MD PATHOLOGY/CYTOLOGY ORDERABLE S Performing Organization Address City/[facility] Phon e Number [address] CERARGELIA REYESIUM Specimen to Pathology (surgical or derm) (06/30/2013 4:21 PM EDT) Specimen Anatomical Collection Method Collection Time Receive d Time (Source) Location / / Volume Laterality AP Specimen 06/30/2013 4:21 PM 4 4:21 EDT PM EDT Narrative MAY ROCHAENNIUM - 06/30/2013 4:21 PM E DT Specimen requisition ordered. ??Separate Pathology report to follow L Fabiano Salazar MD PATHOLOGY/CYTOLOGY ORDERABLE S Performing Organization Address City/State/[place] [address] CERNER MILLENNIUM COLONOSCOPY (06/30/2013 3:44 PM EDT) [facility] Method Time Signature COLONOSCOPY [facility] Endoscopy Patient Name: Aravind Alcantara ? Procedure Date: 06/30/2013 3:44 PM ? N: [id number] ? Date of : 1960 ? Age: 52 ? Order #: [id number] ? Procedure: ? Colonoscopy Indications: ? Screening for colorectal malignant ? neoplasm Providers: ? L. Fabiano Salazar MD, Aggie mena, ? RN, Kala Quigley, Samm Almeida MD: ? Medicines: ? Monitored Anesthesia Care [...] Th e ? colonoscopy was performed wit hout ? difficulty. The patient tao ated the [...] [employer]ATION documented in this encounter Visit Diagnoses Not [...] Procedure) documented in this encounter Care Teams Investment Banker Relationship Specialty Start Date End Date None PCP - General 05/18/13 09/08/13 None documented as of this encounter
--- OUTSIDE RECORDS SUMMARY | 2021-11-01 01:03 | XMS_ITS | Encounter Summary ---
:1960 Author Organization [facility] [place] [address] Care Team Providers Name Role Phone None Primary Care Provider Unavailable Reason for Visit Reason Onset Date Comments Prior Authorization 05/25/2013 Krystle Encounter Details Date Type Department Care Team Description 05/25/2013 Telephone Gastroenterology at [facility] Brittney Morgan Prior Authorization [facility] Ana María Chaudhry CMA ([place]) [place] [phone] Social History Tobacco Use Types Packs/Day [...] this encounter Miscellaneous Notes Telephone Encounter - Brittney Morgan CMA - 05/25/2013 4:10 PM EDT Medication: Linzess Dosage: 145 mcg Frequency & Route: 1 po qd Pharmacy & Phone#: Insurance & Phone #: [place] [phone] ID #: [id number] Trialed (dosage, frequency): Miralax Notes: PA approved til August 23, 2013 documented in this encounter Plan of Treatment Not on filedocumented as of this encounter Visit Diagnoses Not on filedocumented in this encounter Care Teams Account Underwriter Relationship Specialty Start Date End Date None PCP - General 05/18/13 09/08/13 None documented as of this encounter
--- OUTSIDE RECORDS SUMMARY | 2021-11-01 01:03 | XMS_ITS | Encounter Summary ---
:1960 Author Organization [facility] Address [address] [place] [address] Care Team Providers Name Role Phone Lynda Cerda MD Primary Care Provider Encounter Details Date Type Department Care Team Description 01/12/2003 Results Only [facility] - Jelena Pro, TRUCK PACKER conversion [address] [place] [address] Social History Tobacco Use Types Packs/Day Years Used Date Never Assessed Sex Assigned at Date Recorded Not on file documented as of this encounter Plan of Treatment Not on filedocumented as of this encounter Procedures Procedure Name Priority Date/Time Associated Diagnosis Comme nts CYTOPATHOLOGY Routine 01/12/2003 0:00 EST Results for this procedure are i n the results section . documented in this encounter Results CYTOPATHOLOGY (01/12/2003 0:00 EST) Pathology Report: CYTOPATHOLOGY REPORT [facility] Reports generated via electronic interface contain devon ginal data; however they are lacking the format of the original re port. Caution should be taken when reading/interpreting unfo rmatted reports. Name: ? ARAVIND HUIZAR ? Accession #: ? [id number] : ? 1960 (Age: 42) ??F ?Collect Date: ? 12/25 Location: ? [facility] ? Receive Date : ? 01/16/2003 Provider: ?JELENA HERNANDEZ TRUCK PACKER Copy to: ? Specimen/Source: ?ThinPrep Pap Test, Cervix/ Endocervix Last Menstrual Period: ? Previous Gynecologic Pathology: ? LSIL: HSIL ASC-US: 02/26/99 Benign cellular changes: 08/23 Treatment History: ? Colposcopy Miscellaneous treatment: Biopsy with early focal gland ular invonvelvement Cryotherapy Other: ? Additional clinical information: 11/24 negative ? SPECIMEN ADEQUACY ? Satisfactory for Evaluation - transformation zone component present GENERAL CATEGORIZATION ? Negative for Intraepithelial Lesion or Malignan cy ? Document reviewed and electronically signed by: ? PHIL Arnett(ASCP) ? Report Date: ??01/18/2003 14:03 End of Report Specimen Performing Organization Address City/State/ZIP Code Phon e Number [facility] [address] [place] [address] SERVICES [facility] [address] [place] [address] documented in this encounter Visit Diagnoses Not on filedocumented in this encounter Care Teams Gill Box Tender Relationship Specialty Start Date End Date Lynda Cerda MD PCP - General 08/16/[address] [place] [phone] documented as of this encounter
--- OUTSIDE RECORDS SUMMARY | 2021-11-01 01:03 | XMS_ITS | Encounter Summary ---
:1960 Author Organization [facility] Address [facility] [place] [address] Care Team Providers Name Role Phone Lynda Cerda MD Primary Care Provider Reason for Visit Reason Comments Follow-up Encounter Details Date Type Department Care Team Description 09/23/2013 Follow-Up Gastroenterology at [facility] Jemima Montes De Oca, Drug-induced constipation; [facility] Ana María davis APRN Abdominal pain; [place] [address] [facility] Nausea and vomiting [phone] [place] [address] Social History Tobacco Use Types Packs/Day [...] Sign Reading Time Taken Comments Blood Pressure 128/80 09/23/2013 9:11 AM EDT Pulse 63 09/23/2013 9:11 AM EDT Temperature - - Respiratory Rate - - Oxygen Saturation - - Inhaled Oxygen Concentration - - Weight 56.9 kg (125 lb 8 oz) 09/23/2013 9:11 AM EDT Height 152.4 cm (5') 09/23/2013 9:11 AM EDT Body Mass Index 24.51 09/23/2013 9:11 AM EDT documented in this encounter Patient Instructions Patient InstructionsJemima Montes De Oca APRN - 09/23/2013 9:53 AM EDT 1. Bowel clean: clear liquid diet x 48 hours Day 1: clear liquid diet and drink Magnesium citrate 300 ml Day 2: clear liquid diet and drink Magnesium citrate 300 ml Day 3: drink Golytely 1/2 bottle Day 4: start Amitiza 24 mcg twice a day with food and MiraLax 17 grams before bedtime 2. Call or [facility] with an update after taking Amitiza for 2 weeks 3. Abdominal Pain: Bentyl 10 mg every 8 hours as needed 4. Consider trying the FODMAP diet 5. Small bowel follow through on same day as follow up appointment 6. Follow up 2 months Jemima Montes De Oca APRN [phone] documented in this encounter Progress Notes Jemima Montes De Oca APRN - 09/23/2013 9:25 AM EDT Subjective: Patient ID: Bela Alcantara is a 52 y.o. woman who presents for follow up of her gastrointestinal symptoms. HPI Comments: Initial visit 05/18/2013: Ms. Alcantara is a pleasant 52 year [...] like I am full. Stools range from hard bowel movements to pellet like. No [...] chest pain, dysphagia, odynophagia, pre prandial symptoms. Interval Hx 09/23/2013: she reports stopping Linzess after 4 days secondary to facial flushing and swollen eyes. Also experienced diarrhea and fecal incontinence. She is currently using Senna 1 tablet every other night if she does not have a bowel movement after a day. Did try 2 tablets qhs but experienc ed diarrhea. Stools remain hard to pellet like. She reports feeling much better after bowel clean and noted slightly less RLQ abdominal pain. Currently experiencing RLQ abdominal pain, gas and bloating every day. Weight stable. No food allergies or intolerances. Denies heartburn, regurgitation, acid taste, ENT concerns, chest pain, dysphagia, odynophagia, nausea, vomiting, pre prandial symptoms. Review of Systems Constitutional: Negative. Respiratory: Negative. Cardiovascular: Negative. Gastrointestinal: See HPI Allergies Allergen Reactions ??? Fentanyl Other (See Comments) tachycardia ??? Linzess (Linaclotide) ??? Morphine ??? Codeine Nausea And Vomiting ??? Meloxicam ??? Sulfa (Sulfonamide Antibiotics) Rash ??? Trimethoprim Rash ??? Tramadol Current Outpatient Prescriptions on File Prior to Visit Medication Sig Dispense Refill ??? oxyCODONE (OXYCONTIN) 20 mg CR tablet Take 20 mg by mouth 3 times daily. ??? oxyCODONE-acetaminophen (PERCOCET) 5-325 mg per tablet Take 1 tablet by mouth every 4 hours as needed. ??? acetaminophen (TYLENOL) 500 mg tablet Take 1,000 mg by mouth every 6 hours as needed. ??? thiamine 100 mg tablet Take 100 mg by mouth daily. ??? ERGOCALCIFEROL, VITAMIN D2, (VITAMIN D ORAL) Take 1,000 Units by mouth. Recent tests: Colonoscopy 06/30/2013: external hemorrhoids; one 5 mm polyp in the sigmoid Colon; one 6 mm polyp in the mid transverse colon; the examined portion of the ileum was normal. Bx: transverse colon polyp, biopsy: benign colonic mucosa with marked, obscuring cautery artifact; Sigmoid polyp, biopsy: Hyperplastic polyp. Vital Signs: BP 128/80; P 63; Wt 126 lbs; Ht 5'0 Objective: Physical Exam Vitals reviewed. Constitutional: She is oriented to person, place, and time. She appears well- developed and well-nourished. No distress. Neurological: She is alert and oriented to person, place, and time. Skin: She is not diaphoretic. Psychiatric: She has a normal mood and affect. Her behavior is normal. Judgment and thought content normal. 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 Question constipation with overflow. Reviewed the results of her colonoscopy. Allergic to Linaclotide. Discussed repeating a bowel clean out then start Amitiza 24 mcg BID with food and MiraLax 17 grams qhs. Bentyl 10 mg TID prn. SBFT to r/o narrowing, strictures or inflammation. Recommend trying the FODMAP diet. She is amenable to this. I did my best to answer all of her questions. The following plan was formulated. Plan: 1. Bowel clean: clear liquid diet x 48 hours Day 1: clear liquid diet and drink Magnesium citrate 300 ml Day 2: clear liquid diet and drink Magnesium citrate 300 ml Day 3: drink Golytely 1/2 bottle Day 4: start Amitiza 24 mcg BID with food and MiraLax 17 grams before bedtime 2. Call or email [facility] with an update in 2 weeks 3. Bentyl 10 mg TID prn 4. Consider trying the FODMAP diet 5. SBFT 6. Follow up 2 months Patient understands and is agreeable to the above plan. Written instructions provided. Jemima Montes De Oca APRN Section of Gastroenterology and Hepatology [place] [phone] documented in this encounter Plan of Treatment Not on filedocumented as of this encounter Visit Diagnoses Diagnosis Drug-induced constipation Other constipation Abdominal pain Abdominal pain, unspecified site Nausea and vomiting Nausea with vomiting documented in this encounter Care Teams Orthopaedic Surgeon Relationship Specialty Start Date End Date Lynda Cerda MD PCP - General 09/09/[address] [place] [address] documented as of this encounter
--- OUTSIDE RECORDS SUMMARY | 2021-11-01 01:03 | XMS_ITS | Encounter Summary ---
:1960 Author Organization [facility] Address [address] [place] [address] Care Team Providers Name Role Phone Lynda Cerda MD Primary Care Provider Encounter Details Date Type Department Care Team Description 05/10/2007 Results Only [facility] - Lynda Cerda MD Maple conversion [address] [facility] [address] [place] [address] [place], [place] [phone] (Wo rk) Social History Tobacco Use Types Packs/Day Years Used Date Never Assessed Sex Assigned at Date Recorded Not on file documented as of this encounter Plan of Treatment Not on filedocumented as of this encounter Procedures Procedure Name Priority Date/Time Associated Comments Diagnosis HPV DETECTION, HIGH Routine 05/10/2007 14:33 Resu lts for this RISK TYPES EDT procedure are i n the results section. CYTOPATHOLOGY Routine 05/10/2007 0:00 Results for this EDT procedure are i n the results section. documented in this encounter Results HUMAN PAPILLOMA VIRUS DNA TEST (05/10/2007 14:33 EDT) Specimen Description Cervix, ThinPrep [facility] vial Result Negative for HPV [facility] types 16, 18, 31, 33, 35, 39, 45, 51, 52, 56, 58, 59, and 68. Report Status Final [facility] [id number] Specimen Performing Organization Address City/State/ZIP Code Phon e Number [facility] [address] [place] [address] SERVICES [facility] [address] [place] [address] CYTOPATHOLOGY (05/10/2007 0:00 EDT) Pathology Report: CYTOPATHOLOGY REPORT [facility] Reports generated via electronic interface contain devon ginal data; however they are lacking the format of the original re port. Caution should be taken when reading/interpreting unfo rmatted reports. Name: ? ARAVIND HUIZAR ? Accession #: ? [id number] : ? 1960 (Age: 46) ??F ?Collect Date: ? 04/23 Location: ? [facility] ? Receive Date : ? 05/10/2007 Provider: ?LYNDA CERDA MD Copy to: ? Specimen/Source: ?ThinPrep Pap Test, E ndocervix, processed on [facility] [facility] ThinPrep Imaging System, with manual evaluation Last Menstrual Period: ? 01/29 Other: ? 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 ? SPECIMEN ADEQUACY ? Satisfactory for Evaluation - transformation zone component present GENERAL CATEGORIZATION ? Negative for Intraepithelial Lesion or Malignan cy INTERPRETATION ? Shift in zander present suggestive of bacterial vaginosis. ? Document reviewed and electronically signed by: ? ERAN Arce(ASCP) ? Report Date: ??05/17/2007 12:27 End of Report Specimen Performing Organization Address City/State/ZIP Code Phon e Number [facility] [address] [place] [address] SERVICES [facility] [address] [place] [address] documented in this encounter Visit Diagnoses Not on filedocumented in this encounter Care Teams Implementation Manager Relationship Specialty Start Date End Date Lynda Cerda MD PCP - General 08/16/[address] [place] [phone] documented as of this encounter
--- OUTSIDE RECORDS SUMMARY | 2021-11-01 01:03 | XMS_ITS | Encounter Summary ---
:1960 Author Organization [facility] Address [address] [place] [address] Care Team Providers Name Role Phone Lynda Cerda MD Primary Care Provider Encounter Details Date Type Department Care Team Description 12/13/2001 Results Only [facility] - Jelena Pro, STOCKBROKING DEALER conversion [address] [place] [address] Social History Tobacco Use Types Packs/Day Years Used Date Never Assessed Sex Assigned at Date Recorded Not on file documented as of this encounter Plan of Treatment Not on filedocumented as of this encounter Procedures Procedure Name Priority Date/Time Associated Diagnosis Comme nts CYTOPATHOLOGY Routine 12/13/2001 0:00 EDT Results for this procedure are i n the results section . documented in this encounter Results CYTOPATHOLOGY (12/13/2001 0:00 EDT) Pathology Report: CYTOPATHOLOGY REPORT [facility] Reports generated via electronic interface contain devon ginal data; however they are lacking the format of the original re port. Caution should be taken when reading/interpreting unfo rmatted reports. Name: ? ARAVIND HUIZAR ? Accession #: ? [id number] : ? 1960 (Age: 41) ??F ?Collect Date: ? 11/24 Location: ? [facility] ? Receive Date : ? 12/15/2001 Provider: ?JELENA HERNANDEZ STOCKBROKING DEALER Copy to: ? Specimen/Source: ?ThinPrep Pap Test, Cervix/ Endocervix Last Menstrual Period: ? 11/30/01 Previous Gynecologic Pathology: ? LSIL: HSIL ASC-US: Cannot R/O 02/26/99 Benign cellular changes: 08/24/00 Treatment History: ? Colposcopy Miscellaneous treatment: Bx with early focal glandular envolement Cryotherapy ? SPECIMEN ADEQUACY ? Satisfactory for Evaluation - transformation zone component present GENERAL CATEGORIZATION ? Negative for Intraepithelial Lesion or Malignan cy ? Document reviewed and electronically signed by: ? Mahsa Helm, SCT(ASCP) ? Report Date: ??12/20/2001 13:53 End of Report Specimen Performing Organization Address City/State/ZIP Code Phon e Number [facility] [address] [place] [address] SERVICES [facility] [address] [place] [address] documented in this encounter Visit Diagnoses Not on filedocumented in this encounter Care Teams Glassware Selector Relationship Specialty Start Date End Date Lynda Cerda MD PCP - General 08/16/[address] [place] [phone] documented as of this encounter
--- OUTSIDE RECORDS SUMMARY | 2021-11-01 01:03 | XMS_ITS | Encounter Summary ---
:1960 Author Organization [facility] [place] [address] Care Team Providers Name Role Phone Lynda Cerda MD Primary Care Provider Encounter Details Date Type Department Care Team Description 06/22/2014 Follow-Up Nephrology Hypertension Harshal Amato CKD (chronic kidney at [facility] MD Ana María disease), [place] [phone] NEPHROLOGY DEPT. [place], [place] [address] Social History Tobacco Use Types [...] Sign Reading Time Taken Comments Blood Pressure 125/83 06/21/2014 10:36 PM EDT Pulse 81 06/21/2014 10:36 PM EDT Temperature - - Respiratory Rate - - Oxygen Saturation - - Inhaled Oxygen Concentration - - Weight 56.2 kg (124 lb) 06/21/2014 10:36 PM EDT Height 152.4 cm (5') 06/21/2014 10:36 PM EDT Body Mass Index 24.22 06/21/2014 10:36 PM EDT documented in this encounter Progress Notes Harshal Amato MD - 06/22/2014 3:35 PM EDT The patient returns for followup of her CKD. She was first seen by me on 08/30/2013. At that time, her creatinine had increased from 0.9 up to 1.2. After a fairly extensive history and physical, it would appear that she had no acute etiology. Some of the decrease in GFR presumably is long-standing related to those things outlined in the clinic note. In the interim, she has been doing well. Unfortunately, she still continues to smoke. She has had no troubles with significant hypertension or edema. Her current medication list does not contain any antihypertensives. We reviewed her laboratories from today, which demonstrate no significant anemia. Her creatinine is stable in the 1.0 range with an EGFR of around 60. Her calcium is in the normal range. PTH is 41 and protein-creatinine ratio is 0.1. ASSESSMENT AND PLAN: The patient has stable chronic kidney disease, approximately stage II. She is otherwise doing okay. Her main risk is smoking. We discussed perhaps her trying to change to some sort of nicotine delivery system and decreasing her cigarette use further. I will plan on seeing her back in one year. documented in this encounter Plan of Treatment Not on filedocumented as of this encounter Procedures Procedure Name Priority Date/Time Associated Diagnosis Comme nts PTH Routine 06/22/2014 10:48 AM CKD (chronic kidney R esults for this EDT disease), stage II procedure are in the results section. HEMOGRAM STAT 06/22/2014 10:48 AM CKD (chronic kidney R esults for this EDT disease), stage II procedure are in the results section. DIFFERENTIAL, STAT 06/22/2014 10:48 AM CKD (chronic kidney Results for this AUTOMATED EDT disease), stage II procedure are in the results section. PROTEIN/CREATININE Routine 06/22/2014 10:48 AM CKD (chronic ki dney Results for this RATIO, URINE EDT disease), stage II procedure are in the results section. CBC (WITH DIFF) STAT 06/22/2014 10:48 AM CKD (chronic kidne y EDT disease), stage II BASIC METABOLIC STAT 06/22/2014 10:48 AM CKD (chronic kidne y Results for this PANEL (NON-FASTING) EDT disease), stage II pr ocedure are in the results section. documented in this encounter Results Differential, Automated (06/22/2014 10:48 AM EDT) P athologist Signature Neutrophils % 55.0 % [facility] MILL[facility]NIUM Neutr Abs (ANC) 4.97 1.50 - CERNER 6.30 MILLENNIUM x10(3)/mcL Lymphocytes % 39.2 % CERNER MILLENNIUM Lymphocytes Abs 3.6 1.0 - 3.6 CERNER x10(3)/mcL MILLENNIUM Monocytes % 5.0 % CERNER MILLENNIUM Monocyte Abs 0.4 0.2 - 1.0 CERNER x10(3)/mcL MILLENNIUM Eosinophils % 0.3 % CERNER MILLENNIUM Eosinophils Abs 0.0 0.0 - 0.5 CERNER x10(3)/mcL MILLENNIUM Basophils % 0.4 % CERNER MILLENNIUM Basophils Abs 0.0 0.0 - 0.2 CERNER x10(3)/mcL MILLENNIUM Immature Gran % 0.10 % CERNER MILLENNIUM Comment: Immature granulocytes(IG's)percentage an d absolute count will include metamyelocytes, myelocytes, and promyelo cytes. Blood smears from CBCs yielding IG's will be scanned manually for concor dance. If this scan disagrees with the automated IG or if promyelocytes are not ed, a manual differential will be performed. Macie Gran Abs 0.01 0.00 - 0.05 x10(3)/mcL CER NER MILLENNIUM Specimen Anatomical Collection Method Collection Time Receive d Time (Source) Location / / Volume Laterality Blood specimen 06/22/2014 10:48 5 (specimen) AM EDT 10:57 AM EDT Resulting Agency Comment Spec In Lab Harshal Amato MD HEMATOLOGY ORDERABLES Performing Organization Address City/State/[place] [address] C[facility]ER MILLENNIUM Hemogram (06/22/2014 10:48 AM EDT) athologist Signature WBC 9.0 4.0 - 10.0 CERNER x10(3)/mcL MILLENNIUM RBC 4.17 3.93 - 5.22 CERNER x10(6)/mcL MILLENNIUM Hemoglobin 13.3 11.2 - 15.7 CERNER gm/dL MILLENNIUM Hematocrit 38.7 34.0 - 45.0 CERNER % MILLENNIUM MCV 92.8 79.0 - 94.0 CERNER fL MILLENNIUM MCH 31.9 26.6 - 32.2 CERNER pg [facility] MCHC 34.4 32.0 - 36.5 CERNER gm/dL MILLENNIUM Platelets 290 145 - 370 CERNER x10(3)/mcL MILLENNIUM RDWSD 45.7 35.0 - 46.0 CERNER fL MILLENNIUM RDWCV 13.6 10.9 - 14.4 CERNER % MILLENNIUM MPV 9.6 9.0 - 12.0 [facility]ER fL [facility] Specimen Anatomical Collection Method Collection Time Receive d Time (Source) Location / / Volume Laterality Blood specimen 06/22/2014 10:48 5 (specimen) AM EDT 10:57 AM EDT Resulting Agency Comment Spec In Lab Harshal Amato MD HEMATOLOGY ORDERABLES Performing Organization Address City/[facility]/ZIP Code Phon e Number [address] [facility] MILLENNIUM PTH (06/22/2014 10:48 AM EDT) athologist Signature PTH 41 15 - 65 CERNER pg/mL [facility] Specimen Anatomical Collection Method Collection Time Receive d Time (Source) Location / / Volume Laterality Blood specimen 06/22/2014 10:48 5 (specimen) AM EDT 10:57 AM EDT Resulting Agency Comment Spec In Lab Harshal Amato MD CHEMISTRY ORDERABLES Performing Organization Address City/[facility] [place] [address] [facility] Protein/Creatinine Ratio, urine (06/22/2014 10:48 AM EDT) athologist Signature U Creatinine 155 mg/dL CERNER MILLENNIUM U Protein Ran 9 0 - 12 CERNER mg/dL MILLENNIUM Prot/Cre Ratio 0.1 ratio CERNER MILLENNIUM Specimen Anatomical Collection Method Collection Time Receive d Time (Source) Location / / Volume Laterality Urine specimen 06/22/2014 10:48 5 (specimen) AM EDT 11:12 AM EDT Resulting Agency Comment Spec In Lab Harshal Amato MD URINE ORDERABLES Performing Organization Address City/State/[place] [address] CERNER MILLENNIUM (ABNORMAL) Basic Metabolic Panel (non-fasting) (06/22/2014 10:48 AM EDT) athologist Signature Glucose Lvl 89 60 - 199 CERNER mg/dL MILLENNIUM Comment: Diabetes: >=200 mg/dL plus symp toms BUN 17 8 - 18 mg/dL CERNER MILLENNIUM Creatinine 1.00 0.70 - 1.20 mg/dL CERNER MILL ENNIUM Comment: Please note that the pediatric reference intervals supplied above were not validated at [facility]. Results from pediatri c patients should be interpreted in conjunction to the patient's age, height and muscle mass. Sodium 139 135 - 145 mmol/L CERNER INES NIUM Potassium 4.1 3.5 - 5.0 mmol/L [facility]ERNER INES NIUM Comment: Please note: ??Patients with WBC >100,00 0 may have falsely elevated Potassium levels. ??For accurate Potassium quantif ication in these patients send serum separator tube (gold top) for subsequent determinations. ??Contact the Clinical Chemistry Laboratory if there are any qu estions. Chloride 100 98 - 107 mmol/L CERNER MILLENN IUM CO2 25 22 - 31 mmol/L CERNER MILLENNI UM Anion Gap 14 5 - 15 mmol/L CERNER MILLENNIU M Calcium 9.0 8.5 - 10.5 mg/dL CERNER INES NIUM Estimated GFR 58 (L) >=60 CERNER MILLENNIU M Comment: This [...] the following links into your internet browser. [email or web address] Specimen Anatomical Collection Method Collection Time Receive d Time (Source) Location / / Volume Laterality Blood specimen 06/22/2014 10:48 5 (specimen) AM EDT 10:57 AM EDT Resulting Agency Comment Spec In Lab Harshal Amato MD CHEMISTRY ORDERABLES Performing Organization Address City/State/ZIP Code Phon e Number [address] [facility] documented in this encounter Visit Diagnoses Diagnosis CKD (chronic kidney disease), stage II Chronic kidney disease, Stage II (mild) documented in this encounter Care Teams Supervisor [employer] Relationship Specialty Start Date End Date Lynda Cerda MD PCP - General 09/09/[address] [place] [address] documented as of this encounter
--- OUTSIDE RECORDS SUMMARY | 2021-11-01 01:03 | XMS_ITS | Encounter Summary ---
:1960 Author Organization [facility] Address [address] [place] [address] Care Team Providers Name Role Phone Lynda Cerda MD Primary Care Provider Encounter Details Date Type Department Care Team Description 05/19/[address] [facility] - Lynda Cerda MD Maple conversion [address] [facility] [address] [place], [place] [id number] [place] [phone] (Wo rk) Social History Tobacco Use Types Packs/Day Years Used Date Never Assessed Sex Assigned at Date Recorded Not on file documented as of this encounter Plan of Treatment Not on filedocumented as of this encounter Procedures Procedure Name Priority Date/Time Associated Diagnosis Comme nts CYTOPATHOLOGY Routine 05/19/2006 0:00 EDT Results for this procedure are i n the results section . documented in this encounter Results CYTOPATHOLOGY (05/19/2006 0:00 EDT) Pathology Report: CYTOPATHOLOGY REPORT [facility] Reports generated via electronic interface contain devon ginal data; however they are lacking the format of the original re port. Caution should be taken when reading/interpreting unfo rmatted reports. Name: ? ARAVIND HUIZAR ? Accession #: ? [id number] : ? 1960 (Age: 45) ??F ?Collect Date: ? 04/24 Location: ? [facility] ? Receive Date : ? 05/20/2006 Provider: ?LYNDA CERDA MD Copy to: ? Specimen/Source: ? ThinPrep Pap Test, Cervix/Endocervix, processed on EventBoard ThinPrep Imaging System, with manual evaluation Last Menstrual Period: ? 04/19/06 Previous Gynecologic Pathology: ? HSIL: 2003 Treatment History: ? Cervical biopsy: 2002 Colposcopy: 2002 Other: ? HPVA - HPV testing requested if ASC-US on the current ThinPrep Pap test. ? SPECIMEN ADEQUACY ? Satisfactory for Evaluation - transformation zone component present GENERAL CATEGORIZATION ? Negative for Intraepithelial Lesion or Malignan cy ? Document reviewed and electronically signed by: ? PHIL Paris(ASCP) ? Report Date: ??05/22/2006 12:12 End of Report Specimen Performing Organization Address City/State/ZIP Code Phon e Number [facility] [address] [place] [address] [facility] [address] [place] [address] documented in this encounter Visit Diagnoses Not on filedocumented in this encounter Care Teams Chopped Strand Operator Relationship Specialty Start Date End Date Lynda Cerda MD PCP - General 08/16/[address] [place] [phone] documented as of this encounter
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
== END ==
PROVIDERS: PCP Family Medicine; Visit Provider Family Medicine
DX: M25.571 Pain in right ankle and joints of right foot (principal)
CPT/HCPCS: 73610

== ENCOUNTER 2022-04-14 10:04 | Outpatient (REF) | payer MEDICAID, SELFPAY ==
--- NOTE | 2022-04-14 09:30 | PAPFT_PTH ---
PATIENT: Bela Alcantara LOC: [facility] ([facility] U#:[id number] AGE/SX: 61/F ROOM: RE04/14/[address]: Lynda Cerda MD, DC : 1960 BED: DIS: 04/14/2022 SPEC #: [id number] RECD: 04/14/22 12:56 STATUS: [facility] REQ #: [id number] STEPHANIE: 04/14/22 09:[address]: Lynda Cerda [facility] Cytology RECD BY: Zaynab Mckinley Tissues: 1 - CX/ENDOCX FOR PAP SMEARS Procedures: PAP THIN PREP/UVM Screening HPV DNA PROBE Comments: [id number]
== END 2022-04-14 10:05 | disposition home or self-care (01) ==
LOC: LBN 10:04
PROVIDERS: PCP Family Medicine; Visit Provider Family Medicine
DX: Z12.4 Encounter for screening for malignant neoplasm of cervix (principal); Z11.51 Encounter for screening for human papillomavirus (HPV)
CPT/HCPCS: 88142; 87624

== ENCOUNTER 2022-05-23 00:36 | Outpatient (CLI) | payer MEDICAID, SELFPAY ==
--- NOTE | 2022-05-23 12:50 | DI.MAMMO_ITS ---
Exam(s) MAMMO SCREENING EXAM: MAMMO SCREENING CLINICAL HISTORY: screening TECHNIQUE: Mammograms were interpreted according to the usual protocol including computer analysis w [employer] CAD system, tomosynthesis and C-view imaging. COMPARISON: 2012 through 2019 FINDINGS: The breasts are composed of heterogeneously dense fibroglandular densities, Breast Density category C . No suspicious masses or suspicious microcalcifications are seen. Biopsy marker clips are again the u pper outer quadrant of left benign calcifications noted bilaterally. No skin thickening or abnormal axillary lymph nodes are seen. There has been no significant change from prior exams. IMPRESSION: BI-RADS Cat 2 - Benign Findings Yearly screening mammography is recommended. Breast Density Category C, heterogeneously Dense. The mammogram demonstrates the patient's breast tissue is dense. Dense breast tissue is very common a nd is not abnormal but dense breast tissue can make it harder to find cancer on a mammogram. Also, de nse breast tissue may increase breast cancer risk. This information about the result of the mammogram report was provided to the patient to raise their awareness. Use this report when you speak with the patient about their risks for breast cancer, which includes their family history. At that time, you may recommend additional screening tests (Ultrasound or MRI) as they might be useful based on their r isk. A negative radiographic report should not delay biopsy if a dominant or clinically suspicious mass is present. Up to ten percent of cancers are not identified on mammography. A negative report may reinforce clinical impression. Adenosis and dense breasts may obscure an underlying neoplasm. False positive reports average 6 to 10%.
--- NOTE | 2022-05-23 13:15 | DI.DEXA_ITS ---
Exam(s) XR DEXA BONE DENSITY W/WO JUN EXAM: XR DEXA BONE DENSITY W/WO JUN CLINICAL HISTORY: screening for osteoporosis in postmenopausal woman,z78.0 TECHNIQUE: HoloSyntaxin Horizon C densitometer analysis of left hip, lumbar spine and left forearm. COMPARISON: CR XR LUMBAR SPINE COMPLETE from 02/07/2019 FINDINGS: Lateral view of the thoracic and lumbar spine shows no evidence of compression fractures. Bone mineral density measurements of the lumbar spine correspond to a total T-score of -2.4, in the o steopenic range. This is not significant changed from prior. Bone mineral density measurements of the left hip correspond to a total T-score of -2.3. The femora l neck T-score is -3.1, in the osteoporotic range. This represents a decrease of 5.2 percent compar ed with 2019.. The left forearm bone mineral density measurements correspond to a T-score of the distal 3rd of -0.6 , in the normal range.. IMPRESSION: Osteopenia of the lumbar spine. Osteoporosis of left hip and normal bone mineral density of the fore arm.
--- NOTE | 2022-05-23 13:19 | DI.CTLCSR_ITS ---
Exam(s) CT CHEST LUNG CANCER SCREEN EXAM: CT CHEST LUNG CANCER SCREEN CLINICAL HISTORY: Screening for lung cancer,current smoker, f17.210 TECHNIQUE: Imaging Protocol: Axial computed tomography images with coronal and sagittal reformatted images were created and reviewed. Low dose screening protocol. COMPARISON: CT CT CHEST LUNG CANCER SCREEN from 05/22/2021 FINDINGS: Tracheobronchial tree: No bronchiectasis or mucus plugging.. Mediastinum and Yeni: No dominant adenopathy or fluid collection. Pulmonary parenchyma: No consolidation or dominant measurable mass. Mild emphysematous changes. Lung Nodules: Calcified right middle lobe nodule. Pleura: No effusion. No pneumothorax. Heart: The heart is not dilated. Mild coronary artery calcifications are seen. Aorta: Thoracic aorta non-dilated. Upper abdomen: Stable low-density lesion anterior liver Bones: Degenerative changes in the spine. Soft Tissues: Unremarkable. IMPRESSION: No suspicious pulmonary nodules. Lung RADS Cat 1 - Negative: No nodules and definitely benign nodules Lung-RADS 1.0 CATEGORIES: Category 0 - Prior chest CT exam(s) being located for comparison. Category 1 - Annual screening in 12 months. No nodules or definitely benign nodules. Category 2 - Annual screening in 12 months. Benign appearance. Nodules with low likelihood of becomin g active cancer. Category 3 - 6-month follow-up. Probably benign. Short-term follow-up suggested. Nodules with low lik elihood of becoming active cancer. Category 4A - 3-month follow-up and CT/PET if >8 mm in size. Suspicious finding. Findings which requi re additional testing. Category 4B - Findings which require additional testing and tissue sampling. Category 4X - Category 3 or 4 nodules with additional features or imaging findings that increases the suspicion of malignancy. Modifier S- Potentially clinically significant findings (non lung cancer) RADIATION DOSE DELIVERED: 76.65mGy.cm Total DLP DATA REPOSITORY: All CT scans at this facility are submitted to the National Radiology Data Registry (NRDR) Dose Index Registry (DIR) with the [employer] (ACR). RADIATION OPTIMIZATION: All CT scans at this facility use at least one of these dose optimization te chniques: automated exposure control; mA and/or kV adjustment per patient size (includes targeted exa ms where dose is matched to clinical indication); or iterative reconstruction.
== END 2022-05-23 00:56 ==
PROVIDERS: PCP Family Medicine; Visit Provider Family Medicine
DX: Z12.2 Encounter for screening for malignant neoplasm of respiratory organs (principal); F17.210 Nicotine dependence, cigarettes, uncomplicated; J43.8 Other emphysema; R91.1 Solitary pulmonary nodule; M81.0 Age-related osteoporosis without current pathological fracture; M85.88 Other specified disorders of bone density and structure, other site; Z78.0 Asymptomatic menopausal state; Z12.31 Encounter for screening mammogram for malignant neoplasm of breast
CPT/HCPCS: 71271; 77063; 77067; 77080

== ENCOUNTER 2022-10-28 13:24 | Outpatient (REF) | payer MEDICAID, SELFPAY ==
[2022-10-28 14:37] LABS: *AMPHETAMINES SCREEN URINE Negative (Negative); *BARBITURATES SCREEN URINE Negative (Negative); *BENZODIAZEPINES SCREEN URINE Positive (Negative); Cannabinoids THC Positive (Negative); Cocaine Screen,Urine Negative (Negative); METHADONE URINE SCREEN Negative (Negative); OPIATES URINE SCREEN Positive (Negative)
[2022-10-28 14:42] LABS: Tricyclic Antidepressants Negative (Negative)
== END 2022-10-28 13:25 | disposition home or self-care (01) ==
LOC: LBN 13:24
PROVIDERS: PCP Family Medicine; Visit Provider Family Medicine
DX: G89.4 Chronic pain syndrome (principal); R82.5 Elevated urine levels of drugs, medicaments and biological substances
CPT/HCPCS: 80307

== ENCOUNTER 2023-04-06 04:25 | Outpatient (CLI) | payer MEDICAID, SELFPAY ==
[2023-04-06 12:58] LABS: HCT 42.6 % (36.0-46.0); HGB 14.5 g/dL (11.2-15.7); MCH 33.3 pg (27.0-33.0); MCV 98 fL (80-95); Platelet Count 323 10^3/uL (130-400); RBC 4.35 10^6/uL (3.93-5.22); RDW 13.3 % (11.7-14.6); WBC 10.06 10^3/uL (4.4-10.8)
[2023-04-06 14:20] LABS: Iron 95 ug/dL (50-170)
[2023-04-06 14:34] LABS: ALT 20 U/L (14-59); AST 20 U/L (15-37); Albumin 3.8 g/dL (3.4-5.0); Alkaline Phosphatase 68 U/L (46-116); Anion Gap 11.6 mmol/L (3-11); BUN 8 mg/dL (7-18); Bilirubin, Total 0.3 mg/dL (0.2-1.0); CO2 25.4 mmol/L (21.0-32.0); Calcium 9.2 mg/dL (8.5-10.1); Chloride 100 mmol/L (98-107); Ferritin 137 ng/mL (8-252); Glucose 91 mg/dL (74-106); Potassium 4.2 mmol/L (3.5-5.1); Sodium 137 mmol/L (136-145); Total Protein 7.4 g/dL (6.4-8.2)
== END 2023-04-06 04:26 | disposition home or self-care (01) ==
LOC: LBO 04:25
PROVIDERS: PCP Family Medicine; Visit Provider Family Medicine
DX: Z00.00 Encounter for general adult medical examination without abnormal findings (principal); I10 Essential (primary) hypertension; E03.9 Hypothyroidism, unspecified
CPT/HCPCS: 36415; 80053; 85027; 82728; 83540; 84443

== ENCOUNTER 2023-04-27 10:21 | Outpatient (CLI) | payer MEDICAID, SELFPAY ==
[2023-04-27 13:41] LABS: Vitamin B12 241 pg/mL (193-986)
== END 2023-04-27 10:22 | disposition home or self-care (01) ==
LOC: LOS 10:22
PROVIDERS: PCP Family Medicine; Referring Provider Family Medicine; Visit Provider Family Medicine
DX: R55 Syncope and collapse (principal); F41.8 Other specified anxiety disorders; Z79.899 Other long term (current) drug therapy
CPT/HCPCS: 36415; 82607

== ENCOUNTER 2023-05-08 11:38 | Outpatient (RCR) | payer MEDICAID, SELFPAY ==
--- NOTE | 2023-05-08 11:30 | HOLTER_ITS ---
APPROVED REPORT Conclusion This is a 48-hour Holter monitor Rhythm throughout was sinus with an average heart rate of 74. Minimum was 59, maximum 116 There were 2 premature ventricular contractions There were 8 atrial premature beats There was no atrial fibrillation, no SVT, no high-grade AV block, no pauses greater than 3 seconds No symptoms were reported
== END 2023-05-24 23:59 | disposition home or self-care (01) ==
LOC: CARDOPNVT 11:38
PROVIDERS: PCP Family Medicine; Visit Provider Internal Medicine Cardiovascular Disease
DX: R55 Syncope and collapse (principal)
CPT/HCPCS: 93225

== ENCOUNTER → 2023-05-26 02:41 | Outpatient (CLI) | payer MEDICAID, SELFPAY ==
--- NOTE | 2023-05-26 07:30 | DI.MAMMO_ITS ---
Exam(s) MAMMO SCREENING EXAM: MAMMO SCREENING CLINICAL HISTORY: screening.z12.39. TECHNIQUE: Bilateral full field digital CC and MLO mammographic images were obtained with 3D tomosyn thesis and utilizing computer aided detection (CAD). COMPARISON: Prior mammograms were reviewed. FINDINGS: There has been no significant change in the appearance and distribution of the fibroglandular tissue. There are no new significant findings in the immediate vicinity of the 2 biopsy marker clips in the l ateral aspect of the left breast. Partially calcified nodular densities bilaterally are unchanged fr om prior mammograms and most probably are calcified fibroadenomas. There are no new spiculated masses nor new malignant appearing microcalcification groups. There is no significant architectural distortion nor skin thickening-retraction. IMPRESSION: Stable benign findings. No radiographic evidence of malignancy. BI-RADS Category 2 - Benign Findings Breast Density - Category B - Scattered areas of fibroglandular density Breast density Category C or D implies that the patient has dense breast tissue. Dense breast tissue can make it harder to find cancer on a mammogram. Dense breast tissue is also associated with an incr eased risk of breast cancer. This information about the result of the mammogram report was provided to the patient to raise their awareness. Use this report when you speak with the patient about their risks for breast cancer, which includes their family history. At that time, you may recommend additional screening tests (Ultrasoun d or MRI) as these tests may add significant information. A negative radiographic report should not delay biopsy if a dominant or clinically suspicious mass is present. Up to ten percent of cancers are not identified on mammography. A negative report may reinforce clinical impression. Adenosis and dense breasts may obscure an underlying neoplasm. False positive reports average 6 to 10%. Patient will receive a letter notifying them of these results.
== END ==
PROVIDERS: PCP Family Medicine; Visit Provider Family Medicine
DX: Z12.31 Encounter for screening mammogram for malignant neoplasm of breast (principal)
CPT/HCPCS: 77063; 77067

== ENCOUNTER 2023-07-10 01:47 | Outpatient (CLI) | payer MEDICAID, SELFPAY ==
[2023-07-10 13:01] LABS: Vitamin B12 1166 pg/mL (193-986)
== END 2023-07-10 01:48 | disposition home or self-care (01) ==
LOC: LOS 01:49
PROVIDERS: PCP Family Medicine; Visit Provider Family Medicine
DX: E53.8 Deficiency of other specified B group vitamins (principal)
CPT/HCPCS: 36415; 82607

== ENCOUNTER 2023-11-05 15:39 | Outpatient (REF) | payer MEDICAID, SELFPAY ==
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
--- OUTSIDE RECORDS SUMMARY | 2023-11-05 15:41 | XMS_ITS | Encounter Summary ---
Author Organization [facility] Address [address] [place] [address] Care Team Providers Care Soft Metals Hand Engraver Name Role Phone Lynda Cerda MD Primary Care Provider [phone] Encounter Details Date Type Department Care Team (Late st Contact Info) Description 02/13/2011 Abstract [facility] Hand & Upper Extremity Program - [address] [address] Jean-Claude Berumen MD [address] [place] [address] Social History Tobacco Use Types Packs/Day Years Used Date Smoking Tobacco: Every Day Cigarettes 1 23 Alcohol Use Standard Drinks/Week Comments Yes 16.7 (1 standard drink = 0.6 oz pure alcohol) Sex and Gender Information Value Date [...] Yes 07/15/2009 documented as of this encounter Plan of Treatment Not on file documented as of this encounter Visit Diagnoses Not on filedocumented in this encounter Care Teams Soft Metals Hand Engraver Relationship Specialty Start Date End Date Lynda Cerda MD [address] [place] [phone] PCP - General 08/16/08 documented as of this encounter
--- OUTSIDE RECORDS SUMMARY | 2023-11-05 15:41 | XMS_ITS | Encounter Summary ---
Author Organization [facility] Address [address] [place] [address] Care Team Providers Care Professor Of English Name Role Phone Lynda Cerda MD Primary Care Provider [phone] Reason for Visit * Reason Onset Date Comments Appointment Related 05/20/2011 Dr. Jesus villeda Encounter Details Date Type Department Care Team (Late st Contact Info) Description 05/20/2011 Telephone [facility] Plastic, Reconstructive & Cosmetic Surgery - [address], [address] [place] [address] Conner Harmon MD [address] [place] [phone] Appointment Related (Dr. Jesus Day) Social History Tobacco Use Types Packs/Day Years [...] encounter Miscellaneous Notes * Telephone Encounter - Mell Mathis - 05/20/2011 1034 EDT Left message for patient appt sched with Dr. Jesus aDy for 4/4/12 @ 10:30am. with appt info, address & phone # to contact Dr. Day's office with questions. Clinical faxed for appt. documented in this encounter Plan of Treatment Not on file documented as of this encounter Visit Diagnoses Not on filedocumented in this encounter Care Teams Professor Of English Relationship Specialty Start Date End Date Lynda Cerda MD [address] [place] [address] [address] [place] [address] PCP - General 08/16/08 documented as of this encounter
--- OUTSIDE RECORDS SUMMARY | 2023-11-05 15:41 | XMS_ITS | Encounter Summary ---
Author Organization [facility] Address [address] [place] [address] Care Team Providers Care Photo Booth Operator Name Role Phone Lynda Cerda MD Primary Care Provider [phone] Reason for Visit * Reason Comments Follow-up discussion about lef t hand pain Encounter Details Date Type Department Care Team (Late st Contact Info) Description 04/03/2011 13:15 EST Office Visit [facility] Acute Care Surgery - [address] [address] Unknown, Provider, Guzman Quintero MD [address] [place], [place] [phone] Trauma, Surgery, Wrist pain (Primary Dx) Social History Tobacco Use Types Packs/Day Years [...] Yes 07/15/2009 documented as of this encounter Progress Notes * Guzman Quintero MD - 04/04/2011 1104 EST DIVISION OF TRAUMA SURGERY PROGRESS/FOLLOWUP NOTE - 04/03/2011 CHIEF COMPLAINT: Pain in my left wrist. SUBJECTIVE: This patient is well known to our clinic and has persistent pain on the ulnar side of the palmar surface of her left wrist. This hurts most with rotational movements and holding things onthat side. She has been to see Dr [...] structures except for one very small area onthe ulnar side that measures about 2 to 3 mm that might be attached to the underlying tissues. There is no evidence of hypertrophy. Toe Laster strength was good. ASSESSMENT AND PLAN: I do not believe a Z-plasty will help in terms of releasing the scars. This does not appear to be hypertrophic and not limiting function. The skin graft is supple and seems to move over the underlying structures. It appears that Bela would like one another opinion and I have called Omid Harmon to see whether or not he might be able to see her and voice a second opinion concerning the involvement of the skin graft in this pain syndrome. I will call Bela after this appointmentis completed. Electronically Signed by Guzman Quintero MD 07/25/2011 16:55 Guzman Quintero MD - Guzman Quintero MD - PATTI Job ID: SM Doc ID: [id number] Ext Doc ID: [id number] cc: * Guzman Quintero MD - 04/03/2011 1868 EST This office note has been dictated. documented in this encounter Plan of Treatment Not on file documented as of this encounter Visit Diagnoses Diagnosis Wrist pain- Primary Pain in joint, forearm documented in this encounter Care Teams Photo Booth Operator Relationship Specialty Start Date End Date Lynda Cerda MD [address] [place], [place] [address]Y [address] [place] [phone] PCP - General 08/16/08 documented as of this encounter
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
--- OUTSIDE RECORDS SUMMARY | 2023-11-05 15:41 | XMS_ITS | Encounter Summary ---
Author Organization [facility] Address [address] [place] [address] Care Team Providers Care Certified Veterinary Technician Name Role Phone Lynda Cerda MD Primary Care Provider [phone] Encounter Details Date Type Department Care Team (Late st Contact Info) Description 03/25/2011 Abstract [facility] Hand & Upper Extremity Program - [address] [address] Jean-Claude Berumen MD [address] [place] [address] Social History Tobacco Use Types [...] on filedocumented in this encounter Care Teams Certified Veterinary Technician Relationship Specialty Start Date End Date Lynda Cerda MD [address] [place] [phone] PCP - General 08/16/08 documented as of this encounter
--- OUTSIDE RECORDS SUMMARY | 2023-11-05 15:41 | XMS_ITS | Encounter Summary ---
Author Organization [facility] Address [address] [place] [address] Care Team Providers Care Field Training Manager Name Role Phone Lynda Cerda MD Primary Care Provider [phone] Encounter Details Date Type Department Care Team (Late st Contact Info) Description 08/17/2020 Lab Requisition [facility] Pathology & Laboratory Medicine - [facility] [address] [place] [address] Crista Sheriff, DO [address] [place], [place] [phone] Encounter for other general examination Social History Tobacco Use Types Packs/Day Years [...] on file documented as of this encounter Procedures Procedure Name Priority Date/Time Associated Diagnosis Comments SURGICAL PATHOLOGY Today 08/17/2020 11 :40 EDT Encounter for other general examination documented in this encounter Results * SURGICAL PATHOLOGY (08/17/2020 11:40 EDT) Final Diagnosis A. COLON, 20 CM, POLYPS, BIOPSY: - Hyperplastic polyps. 08/21/2020 9:29 EDT [facility] Attestation There was significant resident/fellow involvement in the diagnostic evaluation of this case. By the signature below, the attending physician certifies that they have personally conducted a gross and/or microscopic examination of the described specimens and rendered or confirmed the above diagnosis. 08/21/2020 9:29 EDT [facility] at 0929 Clinical History History of colon polyps 08/21/2020 9:29 EDT [facility] Gross Description A. Received in formalin labelled with proper patient identification (initials D, W) and colon polyps @ 20 cm are 4 hamilton-pink polypoid tissues ( 0.2 x 0.2 x 0.1 cm to 0.3 x 0.2 x 0 cm). Submitted entirely in A1. CHRIS VELAZCO(ASCP) 08/17/2020 15:42 08/21/2020 9:29 EDT [facility] Resident/Clayton w: Aurelio Cobos MD 08/21/2020 9:29 EDT [facility] Performing Lab [facility] 08/21/2020 9:29 EDT [facility] Scanned Images 08/21/2020 9:29 T [facility] Tissue ENTIRE COLON / Unknown 08/17/2020 11:40 EDT 08/17/2020 15:33 EDT Crista Sheriff DO PATHOLOGY ORDERABLES [facility] [address] [place] [address] documented in this encounter Visit Diagnoses Diagnosis Encounter for other general examination documented in this encounter Care Teams Field Training Manager Relationship Specialty Start Date End Date Lynda Cerda MD [address] [place] [address] [address] [place] [address] PCP - General 08/16/08 documented as of this encounter
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
--- OUTSIDE RECORDS SUMMARY | 2023-11-05 15:41 | XMS_ITS | Encounter Summary ---
Author Organization [facility] Address [address] [place] [address] Care Team Providers Care Superintendent Oil Field Drilling Name Role Phone Lynda Cerda MD Primary Care Provider [phone] Encounter Details Date Type Department Care Team (Late st Contact Info) Description 11/14/2013 Results Only [facility] Laboratory Services - [facility] ([facility]) [address] [place] [id number] Lynda Cerda MD [address] [place] [address] [address] [place] [phone] Social History Tobacco Use Types Packs/Day Years [...] Procedure Name Priority Date/Time Associated Diagnosis Comments PAP TEST- RESULT ONLY Routine 11/14/2013 0:00 EDT documented in this encounter Results * PAP TEST- RESULT ONLY (11/14/2013 0:00 EDT) Pathology Report: CYTOPATHOLOGY REPORT Reports generated via electronic interface contain original data; however they are lacking the format of the original report. Caution should be taken when reading/interpreti ng unformatted reports. Name: ? ARAVIND HUIZAR ? Accession #: ? [id number] ? : ? 1960 (Age: 52) ??F ?Collect Date: ? 11/14/2013 ? Location: ? [facility] ? Receive Date: ? 11/15/2013 ? Provider: LYNDA CERDA MD Copy to: ? Final Report SPECIMEN ADEQUACY ? Satisfactory for Evaluation - transformation zone component present GENERAL CATEGORIZATION ? Negative for Intraepithelial Lesion or Malignancy ?? Menstrual/Pregnanc y Status: ??Post Menopausal Previous Gynecologic Pathology: Yes: Dysplasia 1998 Treatment History: Cryotherapy: 1998 Specimen/Source: ??Pap Test, Cervix/Endocervix, ThinPrep Imaging System with manual evaluation Document reviewed and electronically signed by: ? PHIL Scott(ASCP) ? Report ??Date: 11/18/2013 15:27 HPV with Pap Test ? Date Ordered: ? 11/18/2013 ? Status: ?? Signed Out ?Date Complete: ? 11/22/2013 ? By: ??System Interface ? Date Reported: ? 11/22/2013 ? Interpretation RESULT: Negative for HPV. No E6 or E7 mRNA is detected from HPV types 16,18,31,33,35, 39,45,51,52,56,58, 59,66, and 68 by binding bench worker mediated amplification. Comments Document reviewed and electronically signed by: ? System Interface ? Report date: 11/22/2013 By the signature above, the attending physician certifies that he/she has personally conducted a gross and/or microscopic examination of the described specimens and rendered or confirmed the above diagnosis. End of Report AARON MILIAN 11/14/2013 11/15/2013 Lynda Cerda MD PATHOLOGY ORDERABLE S [facility] [address] [place] [address] documented in this encounter Visit Diagnoses Not on filedocumented in this encounter Care Teams Superintendent Oil Field Drilling Relationship Specialty Start Date End Date Lynda Cerda MD [address] [place], [place] [address] [address] [place] [address] PCP - General 08/16/08 documented as of this encounter
--- OUTSIDE RECORDS SUMMARY | 2023-11-05 15:41 | XMS_ITS | Encounter Summary ---
Author Organization [facility] Address [address] [place] [address] Care Team Providers Care Razor Sharpener Name Role Phone Lynda Cerda MD Primary Care Provider [phone] Encounter Details Date Type Department Care Team (Late st Contact Info) Description 01/13/2017 Results Only [facility]- [facility] [phone] Lynda Cerda MD [address] [place] [address] [address] [place] [address] Social History Tobacco Use Types Packs/Day Years [...] Diagnosis Comments PAP TEST- RESULT ONLY Routine 01/13/2017 0:00 EST documented in this encounter Results * PAP TEST- RESULT ONLY (01/13/2017 0:00 EST) Pathology Report: CYTOPATHOLOGY REPORT Reports generated via electronic interface contain original data; however they are lacking the format of the original report. Caution should be taken when reading/interpreti ng unformatted reports. Name: ? ARAVIND HUIZAR ? Accession #: ? [id number] ? : ? 1960 (Age: 56) ??F ?Collect Date: ? 01/13/2017 ? Location: ? [facility] ? Receive Date: ? 01/16/2017 ? Provider: LYNDA CERDA MD Copy to: ? Final Report SPECIMEN ADEQUACY ? Satisfactory for Evaluation - transformation zone component present GENERAL CATEGORIZATION ? Negative for Intraepithelial Lesion or Malignancy ?? Menstrual/Pregnanc y Status: ??Post Menopausal Treatment History: Yes: yrs ago Specimen/Source: ??Pap Test, Cervix, ThinPrep Imaging System with manual evaluation Document reviewed and electronically signed by: ? PHIL Arnett(ASCP) ? Report ??Date: 01/27/2017 12:58 HPV with Pap Test ? Date Ordered: ? 01/27/2017 ? Status: ?? Signed Out ?Date Complete: ? 01/30/2017 ? By: ??System Interface ? Date Reported: ? 01/30/2017 ? Interpretation RESULT: Negative for HPV. No E6 or E7 mRNA is detected from HPV types 16,18,31,33,35, 39,45,51,52,56,58, 59,66, and 68 by field service poultry technician mediated amplification. Comments Document reviewed and electronically signed by: ? System Interface ? Report date: 01/30/2017 By the signature above, the attending physician certifies that he/she has personally conducted a gross and/or microscopic examination of the described specimens and rendered or confirmed the above diagnosis. End of Report [facility] 01/13/2017 01/16/2017 Lynda Cerda MD PATHOLOGY ORDERABLE S [facility] [address] [place] [address] documented in this encounter Visit Diagnoses Not on filedocumented in this encounter Care Teams Razor Sharpener Relationship Specialty Start Date End Date Lynda Cerda MD [address] [place] [address] PCP - General 08/16/08 documented as of this encounter
--- OUTSIDE RECORDS SUMMARY | 2023-11-05 15:41 | XMS_ITS | Encounter Summary ---
Author Organization [facility] Address [address] [place] [address] Care Team Providers Care Cut Off Sawyer Name Role Phone Lynda Cerda MD Primary Care Provider [phone] Reason for Visit * Reason Onset Date Comments Wrist Pain 04/10/2011 Encounter Details Date Type Department Care Team (Late st Contact Info) Description 04/10/2011 Telephone [facility] Plastic, Reconstructive & Cosmetic Surgery - [address], [address] [place] [phone] Conner Harmon MD [address] [facility] [address] [place] [phone] Wrist Pain Social History Tobacco Use Types Packs/Day Years [...] encounter Miscellaneous Notes * Telephone Encounter - Conner Harmon MD - 04/10/2011 1053 EST I had a discussion with Dr. [...] on filedocumented in this encounter Care Teams Cut Off Sawyer Relationship Specialty Start Date End Date Lynda Cerda MD [address] [place] [address] PCP - General 08/16/08 documented as of this encounter
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
--- OUTSIDE RECORDS SUMMARY | 2023-11-05 15:41 | XMS_ITS | Encounter Summary ---
Author Organization [facility] Address [address] [place] [address] Care Team Providers Care Farm Specialist Name Role Phone Lynda Cerda MD Primary Care Provider [phone] Encounter Details Date Type Department Care Team (Late st Contact Info) Description 03/25/2021 Lab Requisition [facility] Pathology & Laboratory Medicine - [address] [address] Outr Resulting Lab, Provider Social History Tobacco Use Types Packs/Day Years [...] Procedure Name Priority Date/Time Associated Diagnosis Comments ZZCOVID-19 TEST [facility] PCR Today 03/25/2021 10:30 EST COVID-19 TESTING Routine 03/25/2021 10:3 0 EST documented in this encounter Results * COVID-19 TEST [facility] PCR (03/25/2021 10:30 EST) Swab 03/25/2021 10:3 0 EST 03/25/2021 21:38 EST Provider Outr Resulting Lab MICROBIOLOGY - GENERAL ORDERABLES [facility] [address] [place] [address] * COVID-19 TESTING (03/25/2021 10:30 EST) COVID-19 rt-PCR Result Negative Negative 03/27/2021 9:[address] [facility] Comment: This test has not been FDA cleared or approved. This test has been authorized by FDA under an EUA for use by authorized laboratories. This test has been authorized only for detection of nucleic acid from 2019-nCoV, not for any other viruses or pathogens. This test is only authorized for the duration of the declaration that circumstances exist justifying the authorization of emergency use of in vitro diagnostic tests for detection and/or diagnosis of 2019-nCoV under section 564(b)(1) of Act, 21 U.S.C ?? 360bbb-3(b) (1), unless the authorization is terminated or revoked sooner. Negative results do not preclude 2019-nCoV infection and should not be used as the sole basis for treatment or other patient management decisions. Negative results must be combined with clinical observations, patient history, and epidemiological information. This test was developed and its performance characteristics determined by [facility]. It has not been cleared or approved by the US Food and Drug Administration. FDA does not require this test to go through premarket FDA review. This test is used for clinical purposes. It should not be regarded as investigational or for research. This laboratory is certified under the Clinical Laboratory Improvement Amendments (CLIA) as qualified to perform high complexity clinical laboratory testing. Laboratory Developed Test (LDT) Performed on the [employer] 7 Flex RT-PCR System. Performing Lab [facility] Lab 03/27/2021 9:[address] [facility] Swab 03/25/2021 10:3 0 EST 03/25/2021 21:38 EST Provider Outr Resulting Lab MICROBIOLOGY - GENERAL ORDERABLES [facility] [address] [place] [address] documented in this encounter Visit Diagnoses Not on filedocumented in this encounter Care Teams Farm Specialist Relationship Specialty Start Date End Date Lynda Cerda MD [address] [place] [phone] PCP - General 08/16/08 documented as of this encounter
--- OUTSIDE RECORDS SUMMARY | 2023-11-05 15:41 | XMS_ITS | Encounter Summary ---
Author Organization [facility] Address [address] [place] [address] Care Team Providers Care Learning Designer Name Role Phone Lynda Cerda MD Primary Care Provider [phone] Encounter Details Date Type Department Care Team (Late st Contact Info) Description 04/15/2022 Lab Requisition [facility] Pathology & Laboratory Medicine - [address] [address] Lynda Cerda MD [facility] [address] [place] [phone] Encounter for other general examination Social History [...] Name Priority Date/Time Associated Diagnosis Comments PAP TEST Today 04/14/2022 9:30 EST Encounter for other general examination HPV DNA DETECTION WITH GENOTYPING, PCR Today 04/14/2022 9:30 EST Encounter for other general examination documented in this encounter Results * HUMAN PAPILLOMAVIRUS (HPV) DETECTION-HIGH RISK TYPES (04/14/2022 9:30 EST) HPV other High Risk types, PCR Negative Negative 04/30/2022 12:34 [facility] Comment:No E6 or E7 mRNA is detected from HPV types 16,18,31,33,35,39,45,51,52,56,58,59,66, and 68 by guide mediated amplification. Papanicolaou smear specimen (specimen) CERVIX UTERI STRUCTURE / Unknown 04/14/2022 9:30 EST 04/28/2022 11:06 EST Lynda Cerda MD MICROBIOLOGY - [facility] ORDERABLES [facility] [address] [place] [id number] * PAP TEST (04/14/2022 9:30 EST) Specimens A. Cervix and/or Endocervix , ThinPrep Imaging System with Manual Evaluation 04/30/2022 12:34 [facility] Specimen Adequacy Satisfactory for Evaluation - transformation zone component present 04/30/2022 12:34 [facility] General Categorization Negative for intraepithelial lesion or malignancy 04/30/2022 12:34 [facility] Attestation . 04/30/2022 12:34 [facility] at 1234 Clinical History SEE BELOW 05/01/19 23 12:34 [facility] HPV The result for the Human Papillomavirus (HPV) Detection-High Risk Types is Negative. No E6 or E7 mRNA is detected from HPV types 16,18,31,33,35,39 ,45,51,52,56,58,5 9,66, and 68 by guide mediated amplification.Jessy ting was performed on specimen [id number] and was resulted on 04/30/2022 1234 EST by FINESSE, LAB INSTRUMENT RESULTS IN 04/30/2022 12:34 EST [facility] Performing Lab [facility] 04/30/2022 12:34 EST [facility] Scanned Images 04/30/2022 12:34 EST [facility] Papanicolaou smear specimen (specimen) CERVIX UTERI STRUCTURE / Unknown 04/14/2022 9:30 EST 04/15/2022 11:52 EST Lynda Cerda MD PATHOLOGY ORDERABLE S [facility] [address] [place] [address] documented in this encounter Visit Diagnoses Diagnosis Encounter for other general examination documented in this encounter Care Teams Learning Designer Relationship Specialty Start Date End Date Lynda Cerda MD [address] [place] [phone] PCP - General 08/16/08 documented as of this encounter
--- OUTSIDE RECORDS SUMMARY | 2023-11-05 15:41 | XMS_ITS | Encounter Summary ---
Author Organization [facility] Address [address] [place] [address] Care Team Providers Care Ext Js Developer Name Role Phone Lynda Cerda MD Primary Care Provider [phone] Reason for Visit * Reason Comments Wrist Pain Left Encounter Details Date Type Department Care Team (Late st Contact Info) Description 03/20/2011 13:[address] [facility] Hand & Upper Extremity [facility] [place] [address] [place] [address] Tyrone Martino MD [address] [place] [phone] Ulnar nerve entrapment at wrist; Median nerve lesion Social History Tobacco Use Types Packs/Day Years [...] as of this encounter Progress Notes * Tyrone Martino MD - 03/20/2011 1353 EST This office note has been dictated. documented in this encounter Procedure Notes * Supervisor Liquid Yeast, Kelly - 03/21/2011 0925 ESTAssociated Order(s): ORDERS - SCANNED * Tyrone Martino MD - 03/20/2011 1431 EST ORTHOPAEDICS AND [...] seen in a comprehensive followup note of 02/03/11in our upper extremity clinic and they are requesting electrodiagnostic testing. She has had numbness, as mentioned, in her ulnar two digits. Her physical exam has shown some suspicion of ulnar neurop athy at the left elbow and possibly wrist. For past medical history, problem list and medication list, I refer to the [facility] intake. FAMILY HISTORY: Noncontributory. REVIEW OF SYSTEMS: Please see intake format. This is reviewed with the patient and signed. OBJECTIVE: She is a pleasant woman. She gives excellent effort. Visual inspection shows slightly hyperpigmented scarring overlying the left volar wrist and forearm. No open areas are noted whatsoever. On the right side the skin is more normalized and very subtle with excellent graft appearance. She has no triggering of her fingers. She clearly has decreased sensibility in digit 4 and 5 appears to be not including the dorsal ulnaraspect of the hand, nor the distal medial aspect of the forearm. She has a slightly positive Tinel's sign over her ulnar nerve at the elbow. Hyperflexion of the elbow was negative. Phalen's maneuver did cause some numbness into the 4th and 5th [...] was used with standard technique. Multiple muscles weretested throughout the left upper extremity. Muscles examined [...] nerve slowing and a certain degree of neuritisacross the wrist. The ulnar study across the [...] Martino MD P - KLA Job ID: Doc ID: [id number] Ext Doc ID: [id number] cc: MD Lynda Gilliam MD documented in this encounter Plan of Treatment Not on file documented as of this encounter Procedures Procedure Name Priority Date/Time Associated Diagnosis Comments ORDERS - SCANNED 03/21/2011 9:25 EST documented in this encounter Results * ORDERS - SCANNED (03/21/2011 9:25 EST) 03/21/2011 9:25 EST Narrative Transcriptions Supervisor Liquid Yeast, Scan - 03/21/2011 9:25 EST Scan Supervisor Liquid Yeast ADMISSION ORDERABLES documented in this encounter Visit Diagnoses Diagnosis 

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
--- OUTSIDE RECORDS SUMMARY | 2023-11-05 15:42 | XMS_ITS | Encounter Summary ---
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 07/22/2009 21:22 EDT 200 mg Given 07/20/2009 9:00 EDT 200 mg enoxaparin (LOVENOX) injection 40 mg 40 mg, subcutaneous, DAILY, First dose on Thu07/18/09 at 0900, Until Discontinued, Routine Given 07/23/2009 9:09 EDT 40 mg Given 07/22/2009 10:00 EDT 40 mg Given 07/21/2009 12:12 EDT 40 mg fentanyl citrate (PF) 50 mcg/mL injection 25-100 mcg 25-100 mcg, intravenous, EVERY 5 MIN PRN, Starting on Thu07/17/09 at 1409, Until Thu07/17/09 at 2004, Pain, Routine, Recovery (only) Given 07/17/2009 1 9:40 EDT 50 mcg Given 07/17/2009 19:00 EDT 50 mcg Given 07/17/2009 16:46 EDT 50 mcg fentanyl citrate (PF) 50 mcg/mL injection 50 mcg 50 mcg, intravenous, NOW X1, 1 dose, On Thu07/15/09 at 0030, STAT Given 07/14/2009 23:25 EDT 50 mcg fentanyl citrate (PF) 50 mcg/mL injection 50 mcg 50 mcg, intravenous, NOW X1, 1 dose, On 07/14/09 at 2330, STAT Given 07/15/2009 0:27 EDT 50 mcg fentanyl citrate (PF) 50 mcg/mL injection 75 mcg 75 mcg, intravenous, NOW X1, 1 dose, On Thu07/15/09 at 0100, STAT Given 07/14/2009 23:40 EDT 25 mcg Given 07/14/2009 23:30 EDT 50 mcg fentanyl citrate (PF) 50 mcg/mL injection 1 dose, Starting on 07/14/09 at 2309, Until Thu07/15/09 at 0145 furosemide (LASIX) tablet 20 mg 20 mg, oral, NOW X1, 1 dose, On 07/21/09 at 0630, Routine Given 07/21/2009 6:30 EDT 20 mg furosemide (LASIX) tablet 20 mg 20 mg, oral, Once (Without Time Specified), 1 dose, Starting on Thu07/22/09 at 0645, Until Thu07/22/09 at 0656, Routine Given 07/22/2009 6:56 EDT 20 mg HYDROmorphone (DILAUDID) tablet 2 mg 2 mg, oral, NOW X1, 1 dose, On Thu07/22/09 at 1200, Routine Given 07/22/2009 12:00 EDT 2 mg HYDROmorphone (DILAUDID) tablet 2-4 mg 2-4 mg, oral, EVERY 3 HOURS PRN, Starting on Thu07/15/09 at 0145, Until Thu07/18/09 at 0629, Pain, STAT Given 07/18/2009 6:23 EDT 4 mg Given 07/18/2009 1:56 EDT 4 mg Given 07/17/2009 22:30 EDT 4 mg HYDROmorphone (DILAUDID) tablet 2-6 mg 2-6 mg, oral, EVERY 3 HOURS PRN, Starting on Thu07/18/09 at 0625, Until Thu07/23/09 at 1428, Pain, STAT Given 07/23/2009 12:05 EDT 6 mg Given 07/23/2009 9:38 EDT 6 mg Given 07/23/2009 6:24 EDT 6 mg HYDROmorphone (PF) (DILAUDID) 1 mg/mL injection 0.2 mg 0.2 mg, intravenous, EVERY 10 MINUTES PRN, Starting on Thu07/17/09 at 1408, Until Thu07/17/09 at 2004, Pain, in PACU only, Routine, Recovery (only) Given 07/17/2009 17:27 EDT 0.5 mg Given 07/17/2009 17:05 EDT 0.5 mg ibuprofen (MOTRIN) tablet 600 mg 600 mg, oral, EVERY 6 HOURS, First dose on Thu07/16/09 at 1200, Until Discontinued, Routine Given 07/23/2009 9:09 EDT 60 0 mg Given 07/23/2009 3:14 EDT 600 mg Given 07/22/2009 21:22 EDT 600 mg lactated ringers (LR) infusion at 75 mL/hr, intravenous, CONTINUOUS, Starting on Thu07/17/09 at 1430, Until Thu07/17/09 at 2004, Routine, Recovery (only) Rate Documented 07/17/2009 14:30 EDT 75 mL/hr midazolam (VERSED) injection 1 mg 1 mg, intravenous, NOW X1, 1 dose, On 07/14/09 at 2330, STAT Given 07/14/2009 23:40 EDT 1 mg midazolam (VERSED) injection 2 mg 2 mg, intravenous, NOW X1, 1 dose, On 07/15/09 at 0100, STAT Given 07/14/2009 23:30 EDT 2 mg morphine (MS CONTIN) CR tablet 15 mg 15 mg, oral, EVERY 12 HOURS, First dose on Thu07/16/09 at 1145, Until Discontinued, Routine Given 07/17/2009 21:00 EDT 15 mg Given 07/17/2009 9:00 EDT 15 mg Given 07/16/2009 20:54 EDT 15 mg morphine (MS CONTIN) CR tablet 15 mg 15 mg, oral, AT BEDTIME, First dose on Thu07/18/09 at 2100, Until Discontinued, Routine Given 07/22/2009 21:22 EDT 1 5 mg Given 07/21/2009 22:00 EDT 15 mg Given 07/20/2009 21:00 EDT 15 mg morphine (MS CONTIN) CR tablet 30 mg 30 mg, oral, EVERY 12 HOURS, First dose (after last modification) on Thu07/18/09 at 0900, Until Discontinued, Routine Given 07/18/2009 8:01 EDT 30 mg morphine (MS CONTIN) CR tablet 30 mg 30 mg, oral, DAILY, First dose (after last modification) on Merly 07/19/09 at 0900, Until Discontinued, Routine Given 07/23/2009 9:09 EDT 30 mg Given 07/22/2009 9:00 EDT 30 mg Given 07/21/2009 9:00 EDT 30 mg morphine injection 1-4 mg 1-4 mg, intravenous, EVERY 5 MIN PRN, Starting on Thu07/17/09 at 1407, Until Thu07/17/09 at 2004, Pain, Routine, Recovery (only) Given 07/17/2009 16:52 EDT 2 mg Given 07/17/2009 16:41 EDT 2 mg morphine injection 2-4 mg 2-4 mg, intravenous, EVERY 2 HOURS PRN, Starting on Thu07/15/09 at 0145, Until Thu07/15/09 at 0654, Pain, STAT Given 07/15/2009 6:27 EDT 2 mg Given 07/15/2009 2:55 EDT 2 mg morphine injection 2-4 mg 2-4 mg, intravenous, EVERY 2 HOURS PRN, Starting on Thu07/15/09 at 0653, Until Thu07/20/09 at 0834, Pain, STAT Given 07/19/2009 19:59 EDT 2 mg Given 07/18/2009 12:10 EDT 4 mg Given 07/18/2009 7:52 EDT 4 mg Multivitamins with Minerals tablet 1 Tab 1 Tablet, oral, DAILY, First dose on Thu07/17/09 at 2030, Until Discontinued, Routine Given 07/23/2009 9:09 EDT 1 Tablet Given 07/22/2009 9:00 EDT 1 Tablet Given 07/21/2009 9:00 EDT 1 Tablet ondansetron (PF) (ZOFRAN) 4 mg/2 mL injection 2-4 mg 2-4 mg, intravenous, EVERY 6 HOURS PRN, Starting on Thu07/15/09 at 0145, Until Thu07/23/09 at 1428, Nausea, STAT Given 07/15/2009 10:15 EDT 4 mg senna (SENOKOT) tablet 1 Tab 1 Tablet, oral, AT BEDTIME PRN, Starting on Thu07/18/09 at 2019, Until Thu07/20/09 at 0834, Constipation, Routine Given 07/18/2009 21:20 EDT 1 Tablet senna (SENOKOT) tablet 2 Tab 2 Tablet, oral, 2 TIMES DAILY, First dose on Thu07/19/09 at 0900, Until Discontinued, Routine Given 07/23/2009 9:09 EDT 2 Tablets Given 07/22/2009 21:22 EDT 2 Tablets Go-Pack Dispense 07/20/2009 21:00 EDT 2 Tablets sodium chloride 0.9 % 1,000 mL BOLUS 1,000 mL, intravenous, NOW X1, 1 dose, On Thu07/17/09 at 0645, Routine Given 07/17/2009 6:51 EDT 1,000 mL vitamin A capsule 10,000 Units 10,000 Units, oral, THREE TIMES WEEKLY (Once per day on Thu), First dose on Thu07/16/09 at 0900, Until Discontinued, STAT Given 07/23/2009 9:09 EDT 10,000 Units Given 07/20/2009 9:00 EDT 10,000 Units Given 07/18/2009 8:48 EDT 10,000 Units zinc sulfate (ZINCATE) capsule 220 mg 220 mg, oral, DAILY, First dose on Thu07/15/09 at 0900, Until Discontinued, STAT Given 07/23/2009 9:09 EDT 220 mg Given 07/22/2009 9:00 EDT 220 mg Given 07/21/2009 9:00 EDT 220 mg documented in this encounter Historical Medications * This list may reflect changes made after this encounter. Medication Sig Dispensed Refills Start Date End Date ascorbic acid (VITAMIN C) 500 mg tablet Take 1 Tab by mouth every 12 hours. 1 Tab 0 07/23/2009 white petrolatum-mineral oil (EUCERIN) cream Apply topically. 1 Tube 0 07/23/2009 06/26/2010 vitamin A 10,000 unit capsule Take 1 Cap by mouth three times a week. 1 Cap 0 07/23/2009 11/15/2009 ibuprofen (MOTRIN) 600 mg tablet Take 1 Tab by mouth every 6 hours. 1 Tab 0 07/23/2009 06/03/2010 acetaminophen (TYLENOL) 650 mg tablet Take 1 Tab by mouth every 4 hours. 1 Tab 0 07/23/2009 11/15/2009 added in this encounter Active and Recently Administered Medications Times are shown in EDT. Scheduled Medication Order 07/21/2009 07/22/2009 07/23/2009 acetaminophen (TYLENOL) tablet 650 mg 650 mg, oral, EVERY 4 HOURS, First dose (after last modification) on Thu07/20/09 at 0645, Until Discontinued, STAT 0245 (Given - Provider: Leticia Her RN)0645 (Given - Provider: Leticia Raineault, RN)1212 (Given - Provider: Caron Mills)1445 (Hold - Provider: Caron Mills - Reason: Other - Comment: last dose given too recently)1845 (Given - Provider: Snehal Mathis RN)2226 (Given - Provider: Emmy Campos) 0330 (Given - Provider: Emmy Campos)0656 (Given - Provider: Emmy Campos)1019 (Given - Provider: Sierra Granda RN)1534 (Given - Provider: Sierra Granda RN)1940 (Given - Provider: Olga Mesa, TIM)2302 (Given - Provider: Olga Mesa, TIM) 0314 (Given - Provider: Amanda Wall, TIM)0624 (Given - Provider: Amanda Wall, TIM)1205 (Given - Provider: Sierra Granda RN) ascorbic acid (VITAMIN C) tablet 500 mg(Linked Group 1) 500 mg, oral, EVERY 12 HOURS, First dose on Thu07/15/09 at 0900, Until Discontinued, STAT 0900 (Given - Provider: Milagros Phillips)2199 (Given - Provider: Emmy Campos) 09 (Given - Provider: Sierra Granda RN)2120 (Given - Provider: Olga Mesa RN) 09 (Given - Provider: Sierra Granda, TIM) bacitracin zinc 500 unit/g ointment topical (top), 2 TIMES DAILY, First dose on Thu07/18/09 at 2100, Until Discontinued 899 (Given - Provider: Caron Mills)2099 (Given - Provider: Emmy Campos) 09 (Given - Provider: Sierra Granda, TIM)2121 (Given - Provider: Olga Mesa, TIM) 0909 (Given - Provider: Sierra Granda, TIM) docusate sodium (COLACE) capsule 200 mg (CANCELED) 200 mg, oral, 2 TIMES DAILY, First dose on Thu07/18/09 at 2100, Until Discontinued, Routine 0900 (Not Given - Provider: Milagros hPillips - Reason: Patient/family refused)2199 (Not Given - Provider: Emmy Campos - Reason: Patient/family refused) 09 (Not Given - Provider: Sierra Granda RN - Reason: Patient/family refused)2121 (Given - Provider: Olga Mesa, TIM) 09 (Given - Provider: Sierra Granda, TIM) enoxaparin (LOVENOX) injection 40 mg (CANCELED) 40 mg, subcutaneous, DAILY, First dose on Thu07/18/09 at 0900, Until Discontinued, Routine 1212 (Given - Provider: Caron Mills) 1000 (Given - Provider: Sierra Granda, TIM) 0909 (Given - Provider: Sierra Granda RN) furosemide (LASIX) tablet 20 mg (COMPLETED) 20 mg, oral, NOW X1, 1 dose, On 07/21/09 at 0630, Routine 0630 (Given - Provider: Leticia Her RN) furosemide (LASIX) tablet 20 mg (COMPLETED) 20 mg, oral, Once (Without Time Specified), 1 dose, Starting on 07/22/09 at 0645, Until 07/22/09 at 0656, Routine 0656 (Given - Provider: Emmy Campos) HYDROmorphone (DILAUDID) tablet 2 mg (COMPLETED) 2 mg, oral, NOW X1, 1 dose, On 07/22/09 at 1200, Routine 1200 (Given - Provider: Sierra Granda RN) ibuprofen (MOTRIN) tablet 600 mg 600 mg, oral, EVERY 6 HOURS, First dose on 07/16/09 at 1200, Until Discontinued, Routine 0300 (Given - Provider: Leticia Her RN)0900 (Given - Provider: Milagros Phillips)1551 (Given - Provider: Snehal Mathis RN)2200 (Given - Provider: Emmy Campos) 0330 (Given - Provider: Emmy Campos)0900 (Given - Provider: Sierra Granda RN)1536 (Given - Provider: Sierra Granda RN)2121 (Given - Provider: Olga Mesa RN) 0314 (Given - Provider: Amanda Wall RN)0909 (Given - Provider: Sierra Granda RN) morphine (MS CONTIN) CR tablet 15 mg 15 mg, oral, AT BEDTIME, First dose on Thu07/18/09 at 2100, Until Discontinued, Routine 2199 (Given - Provider: Emmy Campos) 2121 (Given - Provider: Olga Mesa RN) morphine (MS CONTIN) CR tablet 30 mg 30 mg, oral, DAILY, First dose (after last modification) on Thu07/19/09 at 0900, Until Discontinued, Routine 0900 (Given - Provider: Milagros Phillips) 899 (Given - Provider: Sierra Granda RN) 908 (Given - Provider: Sierra Granda RN) Multivitamins with Minerals tablet 1 Tab (CANCELED) 1 Tablet, oral, DAILY, First dose on Thu07/17/09 at 2030, Until Discontinued, Routine 0900 (Given - Provider: Milagros Phillips) 0900 (Given - Provider: Sierra Granda RN) 908 (Given - Provider: Sierra Granda RN) senna (SENOKOT) tablet 2 Tab (CANCELED) 2 Tablet, oral, 2 TIMES DAILY, First dose on Thu07/19/09 at 0900, Until Discontinued, Routine 0900 (Not Given - Provider: Milagros Phillips - Reason: Patient/family refused)2199 (Not Given - Provider: Emmy Campos - Reason: Patient/family refused) 00 (Not Given - Provider: Sierra Granda RN - Reason: Patient/family refused)2121 (Given - Provider: Olga Mesa RN) 908 (Given - Provider: Sierra Granda RN) vitamin A capsule 10,000 Units 10,000 Units, oral, THREE TIMES WEEKLY (Once per day on Thu), First dose on Thu07/16/09 at 0900, Until Discontinued, STAT 09 (Given - Provider: Sierra Granda RN) zinc sulfate (ZINCATE) capsule 220 mg (CANCELED) 220 mg, oral, DAILY, First dose on Thu07/15/09 at 0900, Until Discontinued, STAT 0900 (Given - Provider: Milagros Phillips) 09 (Given - Provider: Sierra Granda RN) 09 (Given - Provider: Sierra Granda RN) PRN Medication Order 07/21/2009 07/22/2009 07/23/2009 alprazolam (XANAX) tablet 0.5 mg (CANCELED) 0.5 mg, oral, AT BEDTIME PRN, Starting on Thu07/17/09 at 0647, Until Thu07/23/09 at 1428, Anxiety, Routine 1030 (Given - Provider: Snehal Mathis, TIM)2214 (Given - Provider: Emmy Campos) 2121 (Given - Provider: Olga Mesa RN) HYDROmorphone (DILAUDID) tablet 2-6 mg 2-6 mg, oral, EVERY 3 HOURS PRN, Starting on Thu07/18/09 at 0625, Until Thu07/23/09 at 1428, Pain, STAT 0258 (Given - Provider: Leticia Her, TIM)0600 (Given - Provider: Leticia Her, TIM)0936 (Given - Provider: Milagros Phillips)1227 (Given - Provider: Caron Mills)1551 (Given - Provider: Snehal Mathis, TIM)1840 (Given - Provider: Snehal Mathis, TIM)2214 (Given - Provider: Emmy Campos) 0351 (Given - Provider: Emmy Campos)0705 (Given - Provider: Emmy Campos)1019 (Given - Provider: Sierra Granda RN - Comment: premed for burn care)1332 (Given - Provider: Sierra Granda RN)1630 (Given - Provider: Sierra Granda RN)1939 (Given - Provider: Olga Mesa, TIM)2200 (Given - Provider: Olga Mesa, TIM) 0314 (Given - Provider: Amanda Wall, TIM)0624 (Given - Provider: Amanda Wall, RN)0938 (Given - Provider: Sierra Granda RN - Comment: premed for burn care)1205 (Given - Provider: Sierra Granda RN - Comment: pt being d/c'd. premed for 2 hour ride home) white petrolatum-mineral oil (EUCERIN) cream topical (top), PRN, Starting on 07/23/09 at 1018, Until Thu07/23/09 at 1428, Dry Skin Linked Groups Order Group 1: ascorbic acid (VITAMIN C) tablet 500 mgJump to med 500 mg, oral, EVERY 12 HOURS, First dose on 07/15/09 at 0900, Until Discontinued, STAT Or ascorbic acid (VITAMIN C) tablet 500 mg (CANCELED) 500 mg, per ng tube, EVERY 12 HOURS, First dose on 07/15/09 at 0900, Until Discontinued, STAT documented in this encounter Orders Medications Ordered That Mack ht Not Have Been Administered Count Last Ordered Date First Ordered Date white petrolatum-mineral oil (EUCERIN) cream 1 07/23/2009 magnesium hydroxide (MILK OF MAGNESIA) 400 mg/5 mL suspension 30 mL 1 07/18/2009 PEG 3350-Electrolytes (RENETTA AX) packet 17 g 1 07/18/2009 sodium phosphate (FLEET) enema 1 Enema 1 atropine 0.1 mg/mL 10 mL syringe 0.5 mg 1 0 07/17/2009 meperidine (PF) (DEMEROL) 25 mg/0.5 mL injection 12.5 mg 1 07/17/2009 naloxone (NARCAN) injection 0.2 mg 1 2009 ondansetron (PF) (ZOFRAN) 4 mg/2 mL injection 2 mg 1 07/17/2009 zolpidem (AMBIEN) tablet 10 mg 1 07/17/2009 acetaminophen (TYLENOL) solution 650 mg 1 0 07/16/2009 acetaminophen (CHILDREN'S TY LENOL) solution 650 mg 1 07/15/2009 bacitracin zinc 500 unit/g ointment 1 07/15 Diet Count Last Ordered Date First Orde red Date DIET REGULAR 1 07/17/2009 Nursing Count Last Ordered Date First Orde red Date CHANGE IV TO SALINE LOCK 1 07/15/2009 MAINTAIN SEQUENTIAL COMPRESSION DEVICE 1 OT Count Last Ordered Date First Orde red Date OT SPLINT EVALUATION 1 07/19/2009 OT BURN EVALUATION AND TREAT 1 07/15/2009 IV Count Last Ordered Date First Orde red Date IV REQUEST 2 07/17/2009 Admission Count Last Ordered Date First Orde red Date NOTIFY PPS OF DISCHARGE COMPLETE 1 07/24/19 10 PPS NOTIFICATION OF PATIENT ARRIVAL ON UNIT 2 07/17/2009 07/15/2009 PPS NOTIFICATION OF SENDING PATIENT OFF THE UNIT 1 07/17/2009 ADMIT TO INPATIENT 1 07/15/2009 TEACHING SERVICE 1 07/15/2009 Transfer Count Last Ordered Date First Orde red Date CHANGE ATTENDING TO: 1 07/16/2009 Discharge Count Last Ordered Date First Orde red Date DISCHARGE PATIENT 1 07/23/2009 documented in this encounter Care Teams Dairy Farm Worker Relationship Specialty Start Date End Date Lynda Cerda MD [address] [place] [address] PCP - General 08/16/08 documented as of this encounter
--- OUTSIDE RECORDS SUMMARY | 2023-11-05 15:42 | XMS_ITS | Encounter Summary ---
Author Organization [facility] Address [address] [place] [address] Care Team Providers Care Nursing Educator Name Role Phone Lynda Cerda MD Primary Care Provider [phone] Encounter Details Date Type Department Care Team (Late st Contact Info) Description 12/13/2001 Results Only [facility] - [facility] [address] [place] [address] Jelena Smith, AMANDA Social History Tobacco Use Types Packs/Day Years Used Date Smoking Tobacco: Never Assessed Sex and Gender Information Value Date Recorded Sex Assigned at Not on file Gender Identity Not on file Sexual Orientation Not on file documented as of this encounter Plan of Treatment Not on file documented as of this encounter Procedures Procedure Name Priority Date/Time Associated Diagnosis Comments CYTOPATHOLOGY Routine 12/13/2001 0:00 EDT documented in this encounter Results * CYTOPATHOLOGY (12/13/2001 0:00 EDT) Pathology Report: CYTOPATHOLOGY REPORT Reports generated via electronic interface contain original data; however they are lacking the format of the original report. Caution should be taken when reading/interpreti ng unformatted reports. Name: ? HUIZARARAVIND ? Accession #: ? [id number] : ? 1960 (Age: 41) ??F ?Collect Date: ? 12/13/2001 Location: ? [facility] ? Receive Date: ? 12/15/2001 Provider: ?JELENA SMITH KEYPUNCH OPERATOR Copy to: ? Specimen/Source: ?ThinPrep Pap Test, Cervix/Endocervix Last Menstrual Period: ? 11/30/01 Previous Gynecologic Pathology: ? LSIL: HSIL ASC-US: Cannot R/O 02/26/99 Benign cellular changes: 08/24/00 Treatment History: ? Colposcopy Miscellaneous treatment: Bx with early focal glandular envolement Cryotherapy ? SPECIMEN ADEQUACY ? Satisfactory for Evaluation - transformation zone component present GENERAL CATEGORIZATION ? Negative for Intraepithelial Lesion or Malignancy ? Document reviewed and electronically signed by: ? Mahsa Helm, SCT(ASCP) ? Report Date: ??12/20/2001 13:53 End of Report [facility] 12/13/2001 12/15/2001 Jelena Smith KEYPUNCH OPERATOR PATHOLOGY ORDERABLES Performing Organization Address City/State/[facility] Co de Phone Number [facility] [address] [place] [address] documented in this encounter Visit Diagnoses Not on filedocumented in this encounter Care Teams Nursing Educator Relationship Specialty Start Date End Date Lynda Cerda MD [address] [place] [phone] PCP - General 08/16/08 documented as of this encounter
--- OUTSIDE RECORDS SUMMARY | 2023-11-05 15:42 | XMS_ITS | Encounter Summary ---
Author Organization [facility] Address [address] [place] [address] Care Team Providers Care Distributor Operator Name Role Phone Lynda Cerda MD Primary Care Provider [phone] Encounter Details Date Type Department Care Team (Late st Contact Info) Description 01/07/2010 Abstract Used for ABSTRACTING Data [phone] Lynda Cerda MD [address] [place] [address] Social History Tobacco Use Types [...] on filedocumented in this encounter Care Teams Distributor Operator Relationship Specialty Start Date End Date Lynda Cerda MD [address] [place] [address] PCP - General 08/16/08 documented as of this encounter
--- OUTSIDE RECORDS SUMMARY | 2023-11-05 15:42 | XMS_ITS | Encounter Summary ---
Author Organization [facility] Address [address] [place] [address] Care Team Providers Care Stop Attacher Name Role Phone Lynda Cerda MD Primary Care Provider [phone] Encounter Details Date Type Department Care Team (Late st Contact Info) Description 05/19/2006 Results Only [facility] - [place] [facility] [address] [place] [address] Lynda Cerda MD [address] [place] [phone] Social History Tobacco Use Types Packs/Day Years Used Date Smoking Tobacco: Never Assessed Sex and Gender Information Value Date Recorded Sex Assigned at Not on file Gender Identity Not on file Sexual Orientation Not on file documented as of this encounter Plan of Treatment Not on file documented as of this encounter Procedures Procedure Name Priority Date/Time Associated Diagnosis Comments CYTOPATHOLOGY Routine 05/19/2006 0:00 EDT documented in this encounter Results * CYTOPATHOLOGY (05/19/2006 0:00 EDT) Pathology Report: CYTOPATHOLOGY REPORT Reports generated via electronic interface contain original data; however they are lacking the format of the original report. Caution should be taken when reading/interpreti ng unformatted reports. Name: ? ARAVIND HUIZAR ? Accession #: ? [id number] : ? 1960 (Age: 45) ??F ?Collect Date: ? 05/19/2006 Location: ? [facility] ? Receive Date: ? 05/20/2006 Provider: ?LYNDA CERDA MD Copy to: ? Specimen/Source: ?ThinPrep Pap Test, Cervix/Endocervix, processed on [employer] ThinPrep Imaging System, with manual evaluation Last Menstrual Period: ? 04/19/06 Previous Gynecologic Pathology: ? HSIL: 2003 Treatment History: ? Cervical biopsy: 2003 Colposcopy: 2003 Other: ? HPVA - HPV testing requested if ASC-US on the current ThinPrep Pap test. ? SPECIMEN ADEQUACY ? Satisfactory for Evaluation - transformation zone component present GENERAL CATEGORIZATION ? Negative for Intraepithelial Lesion or Malignancy ? Document reviewed and electronically signed by: ? PHIL Paris(ASCP) ? Report Date: ??05/22/2006 12:12 End of Report [facility] 05/19/2006 05/20/2006 Lynda Cerda MD PATHOLOGY ORDERABLE S [facility] [address] [place] [address] documented in this encounter Visit Diagnoses Not on filedocumented in this encounter Care Teams Stop Attacher Relationship Specialty Start Date End Date Lynda Cerda MD [address] [place] [phone] PCP - General 08/16/08 documented as of this encounter
--- OUTSIDE RECORDS SUMMARY | 2023-11-05 15:42 | XMS_ITS | Encounter Summary ---
Author Organization [facility] Address [address] [place] [address] Care Team Providers Care Airline Manager Name Role Phone Lynda Cerda MD Primary Care Provider [phone] Encounter Details Date Type Department Care Team (Late st Contact Info) Description 10/22/2010 Results Only [facility] - [facility] ([facility]) [address] [place] [id number] Lynda Cerda MD [address] [place] [address] [address] [place] [phone] Social History Tobacco Use Types Packs/Day Years [...] Diagnosis Comments PAP TEST- RESULT ONLY Routine 10/22/2010 0:00 EDT documented in this encounter Results * PAP TEST- RESULT ONLY (10/22/2010 0:00 EDT) Pathology Report: CYTOPATHOLOGY REPORT ? Reports generated via electronic interface contain original data; ? however they are lacking the format of the original report. ? Caution should be taken when reading/interpreti ng unformatted reports. ? Name: ? ARAVIND HUIZAR ? Accession #: ? [id number] ? : ? 1960 (Age: 49) ??F ?Collect Date: ? 10/22/2010 ? Location: ? [facility] ? Receive Date: ? 10/23/2010 ? Provider: LYNDA M DOBBERTIN MD ? Copy to: ? Final Report ? SPECIMEN ADEQUACY ? Satisfactory for Evaluation ? - transformation zone component present ? GENERAL CATEGORIZATION ? Negative for Intraepithelial Lesion or Malignancy ? Menstural/Pregnanc y Status: ??Post Menopausal ? Previous Gynecologic Pathology: Yes: H/o abnormal many yrs ago ? Specimen/Source: ??Pap Test, Endocervix, ThinPrep Imaging System with manual ? evaluation ? Document reviewed and electronically signed by: ? PHIL Paris(ASCP) ? Report ??Date: 10/29/2010 13:32 ? HPV with Pap Test ? Date Ordered: ? 10/29/2010 ? Status: ?? Signed Out ?Date Complete: ? 11/04/2010 ? By: ??System Interface ? Date Reported: ? 11/04/2010 ? Interpretation ? RESULT: Negative for HPV types 16, 18, 31, 33, 35, 39, 45, 51, 52, ? 56, 58, 59, and 68. ? Comments ? Document reviewed and electronically signed by: ? System Interface ? Report date: 11/04/2010 ? By the signature above, the attending physician certifies that he/she has ? personally conducted a gross and/or microscopic examination of the described ? specimens and rendered or confirmed the above diagnosis. ? End of Report ? [facility] 10/22/2010 10/23/2010 Lynda Cerda MD PATHOLOGY ORDERABLE S Performing Organization Address City/State/[facility] Co de Phone Number [facility] [address] [place] [address] documented in this encounter Visit Diagnoses Not on filedocumented in this encounter Care Teams Airline Manager Relationship Specialty Start Date End Date Lynda Cerda MD [address] [place] [address] [address] [place] [address] PCP - General 08/16/08 documented as of this encounter
--- OUTSIDE RECORDS SUMMARY | 2023-11-05 15:42 | XMS_ITS | Encounter Summary ---
Author Organization [facility] Address [address] [place] [address] Care Team Providers Care Telephone Installer Name Role Phone Lynda Cerda MD Primary Care Provider [phone] Encounter Details Date Type Department Care Team (Late st Contact Info) Description 06/04/2010 Results Only [facility] Hand & Upper Extremity Program - [address] [address] Jean-Claude Berumen MD [facility] [place] [address] Social History Tobacco Use Types [...] Pending Results Name Type Priority Associated Diagnoses Date /Time OUTSIDE CD - [facility] 05/24 14:40 EDT OUTSIDE CD - [facility] 05/24 14:41 EDT documented as of this encounter Visit Diagnoses Not on filedocumented in this encounter Care Teams Telephone Installer Relationship Specialty Start Date End Date Lynda Cerda MD [address] [place] [address] [address] [place] [address] PCP - General 08/16/08 documented as of this encounter
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
--- OUTSIDE RECORDS SUMMARY | 2023-11-05 15:42 | XMS_ITS | Encounter Summary ---
Author Organization [facility] Address [address] [place] [address] Care Team Providers Care Ear Nose Throat Physician Name Role Phone Lynda Cerda MD Primary Care Provider [phone] Encounter Details Date Type Department Care Team (Late st Contact Info) Description 05/10/2007 Results Only [facility] - [facility] [address] [place] [address] Lynda Cerda MD [address] [place] [phone] Social History Tobacco Use Types Packs/Day Years Used Date Smoking Tobacco: Never Assessed Sex and Gender Information Value Date Recorded Sex Assigned at Not on file Gender Identity Not on file Sexual Orientation Not on file documented as of this encounter Plan of Treatment Not on file documented as of this encounter Procedures Procedure Name Priority Date/Time Associated Diagnosis Comments HPV DETECTION, HIGH RISK TYPES Routine 05/10/2007 14:33 EDT CYTOPATHOLOGY Routine 05/10/2007 0:00 EDT documented in this encounter Results * HUMAN PAPILLOMA VIRUS DNA TEST (05/10/2007 14:33 EDT) Specimen Description Cervix, ThinPrep vial [facility] Result Negative for HPV types 16, 18, 31, 33, 35, 39, 45, 51, 52, 56, 58, 59, and 68. [facility] Report Status Final [id number] [facility] 05/10/2007 14:3 3 EDT 05/17/2007 14:33 EDT Lynda Cerda MD MICROBIOLOGY - GENE RAL ORDERABLES [facility] [address] [place] [address] * CYTOPATHOLOGY (05/10/2007 0:00 EDT) Pathology Report: CYTOPATHOLOGY REPORT Reports generated via electronic interface contain original data; however they are lacking the format of the original report. Caution should be taken when reading/interpreti ng unformatted reports. Name: ? ARAVIND HUIZAR ? Accession #: ? [id number] : ? 1960 (Age: 46) ??F ?Collect Date: ? 05/10/2007 Location: ? [facility] ? Receive Date: ? 05/10/2007 Provider: ?LYNDA CERDA MD Copy to: ? Specimen/Source: ?ThinPrep Pap Test, Endocervix, processed on [employer] ThinPrep Imaging System, with manual evaluation Last Menstrual Period: ? 01/29 Other: ? 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 ? SPECIMEN ADEQUACY ? Satisfactory for Evaluation - transformation zone component present GENERAL CATEGORIZATION ? Negative for Intraepithelial Lesion or Malignancy INTERPRETATION ? Shift in zander present suggestive of bacterial vaginosis. ? Document reviewed and electronically signed by: ? ERAN Arce(ASCP) ? Report Date: ??05/17/2007 12:27 End of Report [facility] 05/10/2007 05/10/2007 Lynda Cerda MD PATHOLOGY ORDERABLE S Performing Organization Address City/State/[facility] Co de Phone Number [facility] [address] [place] [address] documented in this encounter Visit Diagnoses Not on filedocumented in this encounter Care Teams Ear Nose Throat Physician Relationship Specialty Start Date End Date Lynda Cerad MD [address] [place], [place] [address]Y [address] [place] [address] PCP - General 08/16/08 documented as of this encounter
--- OUTSIDE RECORDS SUMMARY | 2023-11-05 15:42 | XMS_ITS | Encounter Summary ---
Author Organization [facility] Address [address] [place] [address] Care Team Providers Care Maritime Engineer Name Role Phone Lynda Cerda MD Primary Care Provider [phone] Reason for Visit * Reason Onset Date Comments Appointment Related 12/20/2009 Encounter Details Date Type Department Care Team (Late st Contact Info) Description 12/20/2009 Telephone [facility] Rehabilitation Therapy - Medical Office Building [address] [place] [address] Guzman Quintero MD [address] [place] [phone] Appointment Related Social History Tobacco Use Types Packs/Day Years [...] encounter Miscellaneous Notes * Telephone Encounter - Sakina Martin - 12/20/2009 1015 EDT We have called this patient 2 times to scheduled a Physical Therapy Disability Evaluation, which is2 hrs long. The patient has not returned our calls documented in this encounter Plan of Treatment Not on file documented as of this encounter Visit Diagnoses Not on filedocumented in this encounter Care Teams Maritime Engineer Relationship Specialty Start Date End Date Lynda Cerda MD [address] [place] [address] [address] [place] [address] PCP - General 08/16/08 documented as of this encounter
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
--- OUTSIDE RECORDS SUMMARY | 2023-11-05 15:42 | XMS_ITS | Encounter Summary ---
Author Organization [facility] Address [address] [place] [address] Care Team Providers Care Case Therapist Name Role Phone Lynda Cerda MD Primary Care Provider [phone] Encounter Details Date Type Department Care Team (Late st Contact Info) Description 01/12/2003 Results Only [facility] - Maple [facility] [address] [place] [address] Jelena Smith, AMANDA Social History Tobacco Use [...] Priority Date/Time Associated Diagnosis Comments CYTOPATHOLOGY Routine 01/12/2003 0:00 EST documented in this encounter Results * CYTOPATHOLOGY (01/12/2003 0:00 EST) Pathology Report: CYTOPATHOLOGY REPORT Reports generated via electronic interface contain original data; however they are lacking the format of the original report. Caution should be taken when reading/interpreti ng unformatted reports. Name: ? ARAVIND HUIZAR ? Accession #: ? [id number] : ? 1960 (Age: 42) ??F ?Collect Date: ? 01/12/2003 Location: ? [facility] ? Receive Date: ? 01/16/2003 Provider: ?JELENA SMITH ROLL FORMING MACHINE SET UP MECHANIC Copy to: ? Specimen/Source: ?ThinPrep Pap Test, Cervix/Endocervix Last Menstrual Period: ? Previous Gynecologic Pathology: ? LSIL: HSIL ASC-US: 02/26/99 Benign cellular changes: 08/23 Treatment History: ? Colposcopy Miscellaneous treatment: Biopsy with early focal glandular invonvelvement Cryotherapy Other: ? Additional clinical information: 11/24 negative ? SPECIMEN ADEQUACY ? Satisfactory for Evaluation - transformation zone component present GENERAL CATEGORIZATION ? Negative for Intraepithelial Lesion or Malignancy ? Document reviewed and electronically signed by: ? PHIL Arnett(ASCP) ? Report Date: ??01/18/2003 14:03 End of Report [facility] 01/12/2003 01/16/2003 Jelena Smith NP PATHOLOGY ORDERABLES Performing Organization Address City/State/[facility] Co de Phone Number [facility] [address] [place] [address] documented in this encounter Visit Diagnoses Not on filedocumented in this encounter Care Teams Case Therapist Relationship Specialty Start Date End Date Lynda Cerda MD [address] [place] [phone] PCP - General 08/16/08 documented as of this encounter
--- OUTSIDE RECORDS SUMMARY | 2023-11-05 15:42 | XMS_ITS | Encounter Summary ---
Author Organization [facility] Address [address] [place] [address] Care Team Providers Care Enterprise Applications Manager Name Role Phone Lynda Cerda MD Primary Care Provider [phone] Encounter Details Date Type Department Care Team (Late st Contact Info) Description 06/07/2010 Abstract [facility] Hand & Upper Extremity Program - [address] [address] Jean-Claude Berumen MD [address] [place] [address] Social History Tobacco Use Types [...] on filedocumented in this encounter Care Teams Enterprise Applications Manager Relationship Specialty Start Date End Date Lynda Cerda MD [address] [place] [phone] PCP - General 08/16/08 documented as of this encounter
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
--- OUTSIDE RECORDS SUMMARY | 2023-11-05 15:42 | XMS_ITS | Encounter Summary ---
Author Organization [facility] Address [address] [place] [address] Care Team Providers Care Plumbing Technician Name Role Phone Lynda Cerda MD Primary Care Provider [phone] Encounter Details Date Type Department Care Team (Late st Contact Info) Description 06/11/2010 Abstract [facility] Hand & Upper Extremity Program - [address] [address] Jean-Claude Berumen MD [address] [place] [address] Social History Tobacco Use Types [...] on filedocumented in this encounter Care Teams Plumbing Technician Relationship Specialty Start Date End Date Lynda Cerda MD [address] [place] [id number] PCP - General 08/16/08 documented as of this encounter
--- OUTSIDE RECORDS SUMMARY | 2023-11-05 15:42 | XMS_ITS | Encounter Summary ---
Author Organization [facility] Address [address] [place] [address] Care Team Providers Care Professor Of Floriculture Name Role Phone Lynda Cerda MD Primary Care Provider [phone] Encounter Details Date Type Department Care Team (Late st Contact Info) Description 08/26/1999 Results Only [facility] - [facility] [address] [place] [address] Darwin Benites MD [address] [place] [address] [phone] Social History Tobacco Use Types Packs/Day Years Used Date Smoking Tobacco: Never Assessed Sex and Gender Information Value Date Recorded Sex Assigned at Not on file Gender Identity Not on file Sexual Orientation Not on file documented as of this encounter Plan of Treatment Not on file documented as of this encounter Procedures Procedure Name Priority Date/Time Associated Diagnosis Comments CYTOPATHOLOGY Routine 08/26/1999 0:00 EDT documented in this encounter Results * CYTOPATHOLOGY (08/26/1999 0:00 EDT) Pathology Report: CYTOPATHOLOGY REPORT Reports generated via electronic interface contain original data; however they are lacking the format of the original report. Caution should be taken when reading/interpreti ng unformatted reports. Name: ? ARAVIND HUIZAR ? Accession #: ? [id number] : ? 1960 (Age: 38) ??F ?Collect Date: ? 08/26/1999 Location: ? [facility] ? Receive Date: ? 08/28/1999 Provider: ?DARWIN BENITES MD Copy to: ? Specimen/Source: ?ThinPrep Pap Test, Cervix/Endocervix Last Menstrual Period: ? 07/31/99 Hormonal/Contracep tive Status: ? Yes Previous Gynecologic Pathology: ? HSIL: ASC-US: Treatment History: ? Cryotherapy: ? SPECIMEN ADEQUACY ? Satisfactory for evaluation. GENERAL CATEGORIZATION ? Benign Cellular Changes DESCRIPTIVE DIAGNOSIS ? Reactive cellular changes associated with inflammation present (includes repair). ? Document reviewed and electronically signed by: ? Deepa Braga MD ? Report Date: ??09/06/1999 08:44 End of Report [facility] 08/26/1999 08/28/1999 Darwin Benites MD PATHOLOGY ORDERABLES [facility] [address] [place] [address] documented in this encounter Visit Diagnoses Not on filedocumented in this encounter Care Teams Professor Of Floriculture Relationship Specialty Start Date End Date Lynda Cerda MD [address] [place] [address] PCP - General 08/16/08 documented as of this encounter
--- OUTSIDE RECORDS SUMMARY | 2023-11-05 15:42 | XMS_ITS | Encounter Summary ---
Author Organization [facility] Address [address] [place] [address] Care Team Providers Care Billing Auditor Name Role Phone Unavailable Primary Care Provider Unavailabl e Encounter Details Date Type Department Care Team (Late st Contact Info) Description 08/14/2008 Orders Only [facility] - [facility] ([facility]) [address] [place], [place] [address] Lynda Cerda MD [address] [place] [address] Social History Tobacco Use Types [...] Priority Date/Time Associated Diagnosis Comments SURGICAL PATHOLOGY Routine 08/14/2008 0:00 EDT documented in this encounter Results * SURGICAL PATHOLOGY (08/14/2008 0:00 EDT) Pathology Report: SURGICAL PATHOLOGY REPORT ? Reports generated via electronic interface contain original data; ? however they are lacking the format of the original report. ? Caution should be taken when reading/interpreting unformatted reports. ? Name: ? ARAVIND HUIZAR J ? Accession #: ? [id number] ? : ? 1960 (Age: 47) ??F ? Collect Date: ? 08/14/2008 ? Location: ? [facility] ? Receive Date: ? 08/15/2008 ? Provider: LYNDA M DOBBERTIN MD ? Copy to: ? Final Pathologic Diagnosis: ? Endometrium, biopsy: ? 1. ?Proliferative endometrium. ? - No cytologic atypia. ??See comment. ? 2. ?? Tubal metaplasia. ? Comment: ? This case has been reviewed at the intradepartmental consensus conference. (Dr. Maier)/mpl ? Document reviewed and electronically signed by: ? Kirk Maier MD ? Report ??Date: 08/16/2008 17:35 ? By the signature above, the attending physician certifies that he/she has ? personally conducted a gross and/or microscopic examination of the described ? specimens and rendered or confirmed the above diagnosis. ? Specimen(s) Received: ? Endometrial bx ? Clinical History: ? DUB ? Gross Description: ? Received in formalin labelled Quinton, Aravind and endometrial bx is a 1.0 x 0.7 x 0.2 cm aggregate of hamilton-brown soft tissue. ??The specimen is ? submitted entirely in one cassette following filtration. ??(Tashi Castro)/ljn ? End of Report ? [facility] 08/14/2008 08/15/2008 9:1 1 EDT Lynda Cerda MD PATHOLOGY ORDERABLE S Performing Organization Address City/State/[facility] Co de Phone Number [facility] [address] [address] documented in this encounter Visit Diagnoses Not on filedocumented in this encounter
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
--- OUTSIDE RECORDS SUMMARY | 2023-11-05 15:42 | XMS_ITS | Clinical Summary ---
Author Organization [facility] Address [facility] [place] [place] [address] Care Team Providers Care Sample Coordinator Name Role Phone Lynda Cerda MD Primary Care Provider [phone] Allergies Active Allergy Reactions Criticality Noted Date Comments Codeine Nausea And Vomiting 05/18/2013 Fentanyl Other (See Comments) High 05/18/2013 tachycardia Linaclotide High 09/23/2013 Meloxicam 05/18/2013 Morphine High 09/23/2013 Sulfa (Sulfonamide Antibiotics) Rash 05/18/2013 Tramadol Low 05/18/2013 Trimethoprim Rash 05/18/2013 Medications Medication Sig Dispensed Refills Start Date End Date Status oxyCODONE (OXYCONTIN) 20 mg CR tablet Take 20 mg by mouth 3 times daily. Active oxyCODONE-acetaminoph en (PERCOCET) 5-325 mg per tablet Take 1 tablet by mouth every 4 hours as needed. Active ALPRAZolam (XANAX) 1 mg tablet Take 1 mg by mouth. 1.5 mg night, 0.5 mg daily prn Active multivitamin (THERAGRAN) Tablet Take 1 tablet by mouth daily. Active Ibuprofen (ADVIL LIQUI-GEL) 200 mg Capsule Take by mouth. Extra strength Active Active Problems Problem Noted Date Diagnosed Date Pain in left wrist 06/20/2015 Drug-induced constipation 05/18/2013 Social History Tobacco Use Types Packs/Day Years Used Date Smoking Tobacco: Every Day Cigarettes Smokeless Tobacco: Never Tobacco Cessation:Ready to Q uit: No; Counseling Given: Yes Alcohol Use Standard Drinks/Week Comments [...] kg (115 lb) 09/03/2015 4:04 PM EDT v erbal Height 152.4 cm (5') 09/03/2015 4:04 PM EDT verb al Body Mass Index 22.46 09/03/2015 4:04 PM EDT Plan of Treatment Health Maintenance Due Date Last Done Comments CT Colonography 1960 FIT DNA 1960 FIT 1960 Sigmoidoscopy 1960 HIV screen 1978 Hepatitis C Screening 1978 Lipid Screening 1978 Tdap adult 11/22/1979 Tetanus vaccine 11/22/1979 HPV test 1990 PAP Smear 1990 Breast Cancer Share Decision Needed 2000 Breast Cancer screening 2000 Zoster vaccine (1 of 2) 2010 Advance Directive 11/22/2015 Colonoscopy 06/30/2018 06/30/2013, 06/30/2013 Colorectal Cancer Screening 06/30/2018 Sigmoidoscopy (10 year) with FIT yearly 07/01/2023 0 06/30/2013, 06/30/2013 Covid-19 Vaccine (24 season) 2023 Influenza (Flu) vaccine (1 o f 1 - Influenza standard series) 10/25/2023 Procedures Procedure Name Priority Date/Time Associated Diagnosis Comments COLONOSCOPY Routine 06/30/2013 3:44 PM EDT from Last 3 Months or Most Recently Relevant to Health Maintenance Results * COLONOSCOPY (06/30/2013 3:44 PM EDT) COLONOSCOPY [facility] Patient Name: Bela Alcantara ? Procedure Date: 06/30/2013 3:44 PM ? Date of : 1960 ? Age: 52 ? Order #: [id number] ? Procedure: ? Colonoscopy Indications: ? Screening for colorectal malignant ? neoplasm Providers: ? Denisse Lopez MD, Aggie Chavez, ? RN, Kala Quigley, Hydrometeorological Technician Referring : ? Medicines: ? Monitored Anesthesia Care Complications: ? No immediate complications. Procedure: ? Pre-Anesthesia Assessment: ? - Prior to the procedure, a History ? and Physical was performed, and ? patient medications and allergies ? were reviewed. The patient is ? competent. The risks and benefits of ? the procedure and the sedation ? options and risks were discussed with ? the patient. All questions were ? answered and informed consent was ? obtained. Patient identification and ? proposed procedure were verified by ? the physician in the pre-procedure ? area in the endoscopy suite. Mental ? Status Examination: alert and ? oriented. Airway Examination: normal ? oropharyngeal airway and neck ? mobility. Respiratory Examination: ? clear to auscultation. CV ? Examination: normal. ASA Grade ? Assessment: II - A patient with mild ? systemic disease. After reviewing the ? risks and benefits, the patient was ? deemed in satisfactory condition to ? undergo the procedure. The anesthesia ? plan was to use monitored anesthesia ? care (MAC). Immediately prior to ? administration of medications, the ? patient was re-assessed for adequacy ? to receive sedatives. The heart rate, ? respiratory rate, oxygen saturations, ? blood pressure, adequacy of pulmonary ? ventilation, and response to care ? were monitored throughout the ? procedure. The physical status of the ? patient was re-assessed after the ? procedure. ? The procedure, indications, benefits, ? risks and alternatives were explained ? to the patient. Specifically ? discussed were potential ? complications including, but not ? limited to, bleeding, perforation, ? infection, missing a cancer, and ? adverse medication reactions. The ? patient was placed in the left ? lateral decubitus position, and a ? digital rectal exam was performed. ? The Colonoscope was inserted in the ? anus and under direct visualization, ? advanced to the terminal ileum, with ? identification of the appendiceal ? orifice and IC valve. Careful ? inspection was made as the ? colonoscope was withdrawn. The ? colonoscopy was performed without ? difficulty. The patient tolerated the ? procedure well. ? Findings: ? [...] - One 5 mm polyp in the sigmoid ? colon. Resected and retrieved. ? - One 6 mm polyp in the mid ? transverse colon. Resected and ? retrieved. ? - The examined portion of the ileum ? was normal. Recommendation: ?- Await pathology results. ? __ L. Fabiano Lopez MD 06/30/2013 4:33 PM Number of Addenda: 0 Note Initiated On: 06/30/2013 3:44 PM PROVATION 06/30/2013 3:44 PM EDT Unknown GENERAL SURGICAL ORD ERABLES PROVATION from Last 3 Months or Most Recently Relevant to Health Maintenance Care Teams Sample Coordinator Relationship Specialty Start Date End Date Lynda Cerda MD [address] [place], [place] [id number] PCP - General 09/09/13
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
--- OUTSIDE RECORDS SUMMARY | 2023-11-05 15:42 | XMS_ITS | Encounter Summary ---
Author Organization [facility] Address [address] [place] [address] Care Team Providers Care Delivery Crew Member Name Role Phone Lynda Cerda MD Primary Care Provider [phone] Reason for Visit * Reason Onset Date Comments Orders (Non Pre-visit) 02/25/2010 need furt her orders to continue with Physical Therapist Encounter Details Date Type Department Care Team (Late st Contact Info) Description 02/25/2010 Telephone [facility] Acute Care Surgery - [facility] [address] [place] [address] Angelique Irizarry RN Orders (Non Pre-visit) (need further orders to continue with Physical Therapist) Social History Tobacco Use Types Packs/Day Years [...] encounter Miscellaneous Notes * Telephone Encounter - Angelique Irizarry RN - 02/25/2010 1501 EST Notes received from PT but no statement or their recommendation on how long the therapy should continue. The PT dept. will talk with Dr. Wilks to schedule a appointment with him for another evaluation to determine if patient needs to continue or next plan. We will hold off on referral as patient will follow up with Dr. Wilks * Telephone Encounter - Angelique Irizarry RN - [...] on filedocumented in this encounter Care Teams Delivery Crew Member Relationship Specialty Start Date End Date Lynda Cerda MD [address] [place] [address] PCP - General 08/16/08 documented as of this encounter
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
--- OUTSIDE RECORDS SUMMARY | 2023-11-05 15:42 | XMS_ITS | Encounter Summary ---
Author Organization [facility] Address [facility] [place] [address] Care Team Providers Care Dry Wall Sprayer Name Role Phone Lynda Cerda MD Primary Care Provider [phone] Reason for Visit * Consultation (Routine) - Closed Specialty Diagnoses / Procedures Referred By Contac t Referred To Contact Neurology Diagnoses Pain in left wrist Ana Maria Klein PA [address] [place] [address] [place] [address] [facility] [address] [place] [address] Referral ID Status Reason Start Date Expiration Date V isits Requested Visits Authorized [id number] Closed Consult, Test & Treat 07/16/2015 07/15/2016 1 1 Encounter Details Date Type Department Care Team (Late st Contact Info) Description 09/03/2015 3:00 PM EDT [place] [phone] Fermín Westbrook MD [facility] [place] [address] Left hand paresthesia; Pain in left wrist Social History Tobacco [...] EDT documented in this encounter Progress Notes * Fermín Westbrook MD - 09/03/2015 3:48 PM EDT EDX studies done at the request of Ana Maria Klein. All results are normal. Report to be scanned into eDH. Fermín Westbrook documented in this encounter Plan of Treatment Scheduled Referrals Name Type Priority Associated Diagnoses Orde r Schedule Referral to Neurology Outpatient Referral Routine Pain in left wrist Ordered: 07/16/2015 documented as of this encounter Visit Diagnoses Diagnosis Left hand paresthesia Disturbance of skin sensation Pain in left wrist Pain in joint, forearm documented in this encounter Care Teams Dry Wall Sprayer Relationship Specialty Start Date End Date Lynda Cerda MD [address] [place] [address] PCP - General 09/09/13 documented as of this encounter
--- OUTSIDE RECORDS SUMMARY | 2023-11-05 15:42 | XMS_ITS | Encounter Summary ---
Author Organization [facility] Address [address] [place] [address] Care Team Providers Care Plaster Molder Name Role Phone Lynda Cerda MD Primary Care Provider [phone] Encounter Details Date Type Department Care Team (Late st Contact Info) Description 08/24/2000 Results Only [facility] [address] [place] [address] Jelena Smith, WEIGHT CALLER Social History Tobacco Use Types Packs/Day Years Used Date Smoking Tobacco: Never Assessed Sex and Gender Information Value Date Recorded Sex Assigned at Not on file Gender Identity Not on file Sexual Orientation Not on file documented as of this encounter Plan of Treatment Not on file documented as of this encounter Procedures Procedure Name Priority Date/Time Associated Diagnosis Comments CYTOPATHOLOGY Routine 08/24/2000 0:00 EDT documented in this encounter Results * CYTOPATHOLOGY (08/24/2000 0:00 EDT) Pathology Report: CYTOPATHOLOGY REPORT Reports generated via electronic interface contain original data; however they are lacking the format of the original report. Caution should be taken when reading/interpreti ng unformatted reports. Name: ? HUIZARARAVIND ? Accession #: ? [id number] : ? 1960 (Age: 39) ??F ?Collect Date: ? 08/24/2000 Location: ? [facility] ? Receive Date: ? 08/25/2000 Provider: ?JELENA SMITH WEIGHT CALLER Copy to: ? Specimen/Source: ?ThinPrep Pap Test, Cervix/Endocervix Last Menstrual Period: ? 08/04/00 Previous Gynecologic Pathology: ? 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 Colposcopy Cervical biopsy Cryotherapy ? SPECIMEN ADEQUACY ? Satisfactory for evaluation. GENERAL CATEGORIZATION ? Benign Cellular Changes DESCRIPTIVE DIAGNOSIS ? Parakeratosis - surface reaction present. ? Document reviewed and electronically signed by: ? MARICRUZ TYSON MD ? Report Date: ??09/09/2000 08:38 End of Report [facility] 08/24/2000 08/25/2000 Jelena Smith NP PATHOLOGY ORDERABLES Performing Organization Address City/State/[facility] Co de Phone Number [facility] [address] [place] [address] documented in this encounter Visit Diagnoses Not on filedocumented in this encounter Care Teams Plaster Molder Relationship Specialty Start Date End Date Lynda Cerda MD [address] [place] [phone] PCP - General 08/16/08 documented as of this encounter
--- OUTSIDE RECORDS SUMMARY | 2023-11-05 15:42 | XMS_ITS | Encounter Summary ---
Author Organization [facility] Address [address] [place] [address] Care Team Providers Care Accounting Director Name Role Phone Lynda Cerda MD Primary Care Provider [phone] Encounter Details Date Type Department Care Team (Late st Contact Info) Description 04/21/2002 Results Only [facility] - [facility] [address] [place] [address] Erik Ridley MD [address] [place], [place] [address] Social History Tobacco Use Types Packs/Day Years Used Date Smoking Tobacco: Never Assessed Sex and Gender Information Value Date Recorded Sex Assigned at Not on file Gender Identity Not on file Sexual Orientation Not on file documented as of this encounter Plan of Treatment Not on file documented as of this encounter Procedures Procedure Name Priority Date/Time Associated Diagnosis Comments SURGICAL PATHOLOGY Routine 04/21/2002 0:00 EST documented in this encounter Results * SURGICAL PATHOLOGY (04/21/2002 0:00 EST) Pathology Report: SURGICAL PATHOLOGY REPORT Reports generated via electronic interface contain original data; however they are lacking the format of the original report. Caution should be taken when reading/interpreti ng unformatted reports. Name: ? ARAVIND HUIZAR ? Accession #: ? [id number] ? : ? 1960 (Age: 41) ??F ? Collect Date: ? 04/21/2002 ? Location: ? [facility] ? Receive Date: ? 04/22/2002 ? Provider: ERIK RIDLEY MD Copy to: OLIVA CHAPA MD ? Final Pathologic Diagnosis: ? Endometrium, biopsy: - Proliferative endometrium with extensive stromal breakdown. Document reviewed and electronically signed by: MEKHI CHAPMAN MD Report ??Date: 04/26/2002 17:27 By the signature above, the attending physician certifies that he/she has personally conducted a gross and/or microscopic examination of the described specimens and rendered or confirmed the above diagnosis. Specimen(s) Received: ? Endometrial bx Clinical History: ? AUB, no hormones; LMP: 04/07/02 Gross Description: ? Received in formalin labelled Huizar and endometrial bx is a 0.8 x 0.7 x 0.2 cm aggregate of hamilton, soft tissue admixed with blood clot. ??The specimen is entirely submitted in one cassette. ??(Kathleen Antunez)/[facility] End of Report [facility] 04/21/2002 04/22/2002 15: 51 EST Erik Ridley MD PATHOLOGY ORDERABLES [facility] [address] [place] [address] documented in this encounter Visit Diagnoses Not on filedocumented in this encounter Care Teams Accounting Director Relationship Specialty Start Date End Date Lynda Cerda MD [address] [place] [address] PCP - General 08/16/08 documented as of this encounter
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
--- OUTSIDE RECORDS SUMMARY | 2023-11-05 15:42 | XMS_ITS | Encounter Summary ---
Author Organization [facility] Address [address] [place] [address] Care Team Providers Care Ballistics Teacher Name Role Phone Lynda Cerda MD Primary Care Provider [phone] Encounter Details Date Type Department Care Team (Latest Contact Info) Description 09/27/2009 15:01 EDT - 09/27/2009 23:59 EDT Hospital Encounter [facility] [address] [place] [address] Erik Gudino MD PhD Discharge Disposition: Home or Self Care Social [...] 07/23/2009 06/26/2010 documented as of this encounter Discharge Disposition Disposition Code Departure Means Destination Home or Self Jail documented in this encounter Progress Notes * Inpatient, Physician - 09/27/2009 0000 EDT * Inpatient, Physician - 09/27/2009 0000 EDT documented in this encounter Plan of Treatment Not on file documented as of this encounter Visit Diagnoses Not on filedocumented in this encounter Care Teams Ballistics Teacher Relationship Specialty Start Date End Date Lynda Cerda MD [address] [place] [address] [address] [place] [address] PCP - General 08/16/08 documented as of this encounter
--- OUTSIDE RECORDS SUMMARY | 2023-11-05 15:42 | XMS_ITS | Encounter Summary ---
Author Organization [facility] Address [address] [place] [address] Care Team Providers Care African Studies Professor Name Role Phone Lynda Cerda MD Primary Care Provider [phone] Encounter Details Date Type Department Care Team (Latest Contact Info) Description 08/30/2009 16:11 EDT - 08/30/2009 23:59 EDT Hospital Encounter [facility] [address] [place] [address] Guzman Quintero MD [address] [place] [address] Discharge Disposition: Home or Self Care Social [...] Code Departure Means Destination Home or Self Intermediate documented in this encounter Plan of Treatment Not on file documented as of this encounter Visit Diagnoses Not on filedocumented in this encounter Care Teams African Studies Professor Relationship Specialty Start Date End Date Lynda Cerda MD [address] [place] [address] PCP - General 08/16/08 documented as of this encounter
--- OUTSIDE RECORDS SUMMARY | 2023-11-05 15:42 | XMS_ITS | Encounter Summary ---
Author Organization [facility] Address [address] [place] [address] Care Team Providers Care Bottom Turner Name Role Phone Lynda Creda MD Primary Care Provider [phone] Encounter Details Date Type Department Care Team (Latest Contact Info) Description 06/26/2010 6:24 EDT - 06/26/2010 10:25 EDT Hospital Encounter [facility] Perioperative Services- Main [place] [address] [place] [address] Guzman Quintero MD [address] [place], [place] Discharge Disposition: Home or Self Care Social [...] 07/15/2009 documented as of this encounter Discharge Instructions * Discharge Instructions* Mauro Medrano MD - 06/26/2010 9:04 EDT Diet: Regular Activity: No heavy lifting or [...] 20 mg by mouth daily. 11/14/2010 01/23/2011 oxycodone-acetaminophen (PERCOCET) 5-325 mg per tablet Take 1 Tab by mouth every 4 hours as needed for Pain. 30 Tab 0 06/26/2010 07/04/2010 documented as of this encounter Ordered Prescriptions Prescription Sig Dispensed Refills Start Date End Da te oxycodone-acetaminophen (PERCOCET) 5-325 mg per tablet Take 1 Tab by mouth every 4 hours as needed for Pain. 30 Tab 0 06/26/2010 07/04/2010 documented in this encounter Discharge Disposition Disposition Code Departure Means Destination Home or Self Care documented in this encounter Progress Notes * Nina Littlejohn RN - 06/26/2010 0951 EDT Pt questioning instructions--unwilling to sign understanding--asking to speak with MD again. Mitchell pg'd. 955 Mila Fritz here--extensive explanation and reassurance given. Pt now willing to sign instruction as having been read and reviewed--disch to daughter's car--refused to get in immediately--asking to taken to Dr Quintero's office to arrange follow up john't--pt advised to call tomorrow when no longer influenced by anesthesia. Any remaining questions should be asked @ that time. documented in this encounter H&P Notes * Mauro Medrano MD - 06/26/2010 0731 EDT Mrs. Alcantara is here today for ulnar nerve neurolysis with an exploration and revision of the skin graft on the left wrist. No changes to the H&P from 06/21/2010. Consent signed. Patient may be taken to the OR. 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 POSTOPERATIVE DIAGNOSIS: Entrapment of flexor carpi ulnaris tendon from skin graft scar. PROCEDURE: Revision of wound on the left wrist and a tenolysis of the flexor carpi ulnaris from the skin graft. SURGEON: Guzman Quintero MD PROSTHETIST: Mauro Medrano MD ANESTHESIA: General. ESTIMATED BLOOD [...] narcotics. I did send her to Dr Berumen in hand surgery who felt that perhaps [...] the office in about a week's time. Guzman Chaudhry, certify I was present during the entire procedure. Unless otherwise noted, there were no complications, no blood loss, no cultures obtained, no specimens removed, and no drains retained. Dictated by: Guzman Quintero MD Guzman Quintero MD 11 55 AM / Confirmation: [id number] Dictation ID: [id number] * Anesthesia Procedure Notes - Inpatient, Physician - 06/26/2010 0000 EDT * Anesthesia Preprocedure Evaluation - Inpatient, Physician - 06/26/2010 0000 EDT * OR PreOp - Inpatient, Physician - 06/26/2010 0000 EDT * OR PreOp - Wood Pattern Maker, Scan - 06/26/2010 0000 EDT * OR PreOp - Wood Pattern Maker, Scan - 06/26/2010 0000 EDT documented in this encounter Miscellaneous Notes * Anesthesia Post-Eval - Lucho Landin - 06/26/2010 0915 EDT Post Anesthesia Evaluation Note Date of Service: 06/26/2010 Bela Alcantara, a 49 y.o. year old female has received General Anesthesia today. She has been evaluated, assessed and discharged from anesthesia care with stable cardiorespiratory function and alert mental status. The last set of recorded vital signs and pain rating were reviewed: Temp: 37.5 ??C (99.5 ??F) (06/26/10723), Heart Rate: 90 BPM (06/26/10723), BP: 118/76 mmHg (06/26/10723), Resp: 16 (06/26/10723), SpO2: 98 % (06/26/10723), Pulse: 90 (06/26/10723),NumericPain Level (Scale 1-10): 4 Bela Alcantara participated in this evaluation unless otherwise noted. Her pain, nausea and vomiting have been managed and her body temperature and fluid balance have been restored. Additional monitoring and assessment needs have been addressed. If present, any postoperative events are documented below. LUCHO LANDIN MD 06/26/2010 9:15 * Scanned Note-Null - Wood Pattern Maker, Scan - 06/26/2010 0000 EDT * Scanned Note-Null - Wood Pattern Maker, Scan - 06/26/2010 0000 EDT documented in this encounter Plan of Treatment Not on file documented as of this encounter Procedures Procedure Name Priority Date/Time Associated Diagnosis Comments ECG REPORT - SCANNED 07/03/2010 9:54 EDT documented in this encounter Results * ECG REPORT - SCANNED (07/03/2010 9:54 EDT) 07/03/2010 9:54 EDT Narrative Procedure Note Wood Pattern Maker, Scan - 06/26/2010 0:00 EDT Scan Wood Pattern Maker PROCEDURE/MINOR SURG ICAL ORDERABLES documented in this encounter Visit Diagnoses Not on filedocumented in this encounter Administered Medications Inactive Administered Medications - up to 3 most recent administrations Medication Order MAR Action Action Date Dose Rate Site acetaminophen (TYLENOL) tablet 1,000 mg 1,000 mg, oral, Once (Without Time Specified), 1 dose, Starting on Thu06/26/10 at 0722, Until Thu06/26/10 at 0730, STAT Given 06/26/2010 7:30 EDT 1,000 mg ceFAZolin (ANCEF) syringe 1 g 1 g, intravenous, Administer over 10 Minutes, PRE-OP ONCE, 1 dose, On Thu06/26/10 at 0900, Routine Given by Other 06/26/2010 8:13 EDT 1 g oxycodone (OXYCONTIN) CR tablet 10 mg 10 mg, oral, Once (Without Time Specified), 1 dose, Starting on Thu06/26/10 at 0915, Until Thu06/26/10 at 0939, STAT Given 06/26/2010 9:39 EDT 10 mg documented in this encounter Discontinued Medications Medication Sig Discontinue Reason Start Date End Da te white petrolatum-mineral oil (EUCERIN) cream Apply topically. 07/23/2009 06/26/2010 documented as of this encounter Active and Recently Administered Medications Times are shown in EDT. Scheduled Medication Order 06/24/2010 06/25/2010 06/26/2010 acetaminophen (TYLENOL) tablet 1,000 mg (COMPLETED) 1,000 mg, oral, Once (Without Time Specified), 1 dose, Starting on Thu06/26/10 at 0722, Until Thu06/26/10 at 0730, STAT 0730 (Given - Provid er: Marina Gonzalez) ceFAZolin (ANCEF) syringe 1 g (COMPLETED) 1 g, intravenous, Administer over 10 Minutes, PRE-OP ONCE, 1 dose, On Thu06/26/10 at 0900, Routine 0813 (Given by Other - Provider: Eliane Hubbard - Comment: given in OR prior to incision by Dr. Lucho Landin) oxycodone (OXYCONTIN) CR tablet 10 mg (COMPLETED) 10 mg, oral, Once (Without Time Specified), 1 dose, Starting on Thu06/26/10 at 0915, Until Thu06/26/10 at 0939, STAT 0939 (Given - Provid er: Nina Littlejohn RN) documented in this encounter Orders Medications Ordered That Mack ht Not Have Been Administered Count Last Ordered Date First Ordered Date atropine 0.1 mg/mL 10 mL syringe 0.5 mg 1 0 06/26/2010 celecoxib (CELEBREX) capsule 100 mg 1 06/26 fentanyl citrate (PF) 50 mcg /mL injection 25-100 mcg 1 06/26/2010 hydrocodone-acetaminophen (L ORTAB;VICODIN) 5-500 mg per tablet 1-2 Tab 1 06/26/2010 HYDROmorphone (DILAUDID) tablet 2-4 mg 1 lactated ringers (LR) infusion 2 06/26/2010 meperidine (PF) (DEMEROL) 25 mg/0.5 mL injection 12.5-25 mg 1 06/26/2010 metoCLOPramide (REGLAN) injection 10 mg 1 0 06/26/2010 morphine injection 1-4 mg 1 06/26/2010 naloxone (NARCAN) injection 0.2 mg 1 2010 ondansetron (PF) (ZOFRAN) injection 2 mg 1 06/26/2010 oxycodone-acetaminophen (PER COCET) 5-325 mg per tablet 1-2 Tab 1 06/26/2010 Nursing Count Last Ordered Date First Orde red Date PLACE SEQUENTIAL COMPRESSION DEVICE 1 06/26 Admission Count Last Ordered Date First Orde red Date NOTIFY PPS PATIENT ARRIVAL IN PACU 1 2010 NOTIFY PPS PATIENT DISCHARGED FROM PACU 1 0 06/26/2010 Discharge Count Last Ordered Date First Orde red Date DISCHARGE PATIENT 1 06/26/2010 documented in this encounter Care Teams Bottom Turner Relationship Specialty Start Date End Date Lynda Cerda MD [address] [place] [address] [address] [place] [address] PCP - General 08/16/08 documented as of this encounter
--- OUTSIDE RECORDS SUMMARY | 2023-11-05 15:42 | XMS_ITS | Encounter Summary ---
Author Organization [facility] Address [address] [place] [address] Care Team Providers Care Credit Intern Name Role Phone Lynda Cerda MD Primary Care Provider [phone] Reason for Visit * Reason Onset Date Comments Prior Auth, Other (i.e. radiology, etc.) 011 Encounter Details Date Type Department Care Team (Late st Contact Info) Description 06/21/2010 Telephone [facility] GENERAL SURGERY [address] [place], [place] [id number] Guzman Quintero MD [address] [place] [address] Prior Auth, Other (i.e. radiology, etc.) Social History Tobacco Use Types Packs/Day Years [...] encounter Miscellaneous Notes * Telephone Encounter - Beatrice Anne - 06/21/2010 1345 EDT DOS - 06/26/2010 - CPT - 37978 - ICD9 - 944.30 - [place] Medicaid - No PA documented in this encounter Plan of Treatment Not on file documented as of this encounter Visit Diagnoses Not on filedocumented in this encounter Care Teams Credit Intern Relationship Specialty Start Date End Date Lynda Cerda MD [address] [place] [address] PCP - General 08/16/08 documented as of this encounter
--- OUTSIDE RECORDS SUMMARY | 2023-11-05 15:42 | XMS_ITS | Encounter Summary ---
Author Organization [facility] Address [address] [place] [address] Care Team Providers Care Manufacturing Engineering Manager Name Role Phone Lynda Cerda MD Primary Care Provider [phone] Reason for Visit * Reason Onset Date Comments Prior Auth, Other (i.e. radiology, etc.) 011 Encounter Details Date Type Department Care Team (Late st Contact Info) Description 11/14/2010 Telephone [facility] GENERAL SURGERY [address] [place], [place] [address] Guzman Quintero MD [address] [place] [phone] Prior Auth, Other (i.e. radiology, etc.) Social [...] * Telephone Encounter - Beatrice Anne - 11/14/2010 1522 EDT DOS - 12/03/2010 - CPT - 08726 - ICD9 - 719.43, 944.30 - [place] Medicaid - [id number] - Case# [id number] documented in this encounter Plan of Treatment Not on file documented as of this encounter Visit Diagnoses Not on filedocumented in this encounter Care Teams Manufacturing Engineering Manager Relationship Specialty Start Date End Date Lynda Cerda MD [address] [place] [address] PCP - General 08/16/08 documented as of this encounter
--- OUTSIDE RECORDS SUMMARY | 2023-11-05 15:42 | XMS_ITS | Encounter Summary ---
Author Organization [facility] Address [facility] [address] [address] Care Team Providers Care Metal Moulder'S Assistant Name Role Phone Lynda Cerda MD Primary Care Provider [phone] Reason for Visit * Reason Comments Left Wrist Pain Encounter Details Date Type Department Care Team (Late st Contact Info) Description 09/03/2015 4:10 PM EDT Office Visit [place] [address] César Boswell MD [facility] [place] [address] Pain in left wrist Social History Tobacco [...] documented in this encounter Progress Notes * Ana Maria Klein PA - 09/03/2015 4:37 [...] forearm documented in this encounter Care Teams Metal Moulder'S Assistant Relationship Specialty Start Date End Date Lynda Cerda MD [address] [place] [address] PCP - General 09/09/13 documented as of this encounter
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
--- OUTSIDE RECORDS SUMMARY | 2023-11-05 15:42 | XMS_ITS | Encounter Summary ---
Author Organization [facility] Address [address] [place] [address] Care Team Providers Care Assistant Professor Of Geography Name Role Phone Lynda Cerda MD Primary Care Provider [phone] Encounter Details Date Type Department Care Team (Late st Contact Info) Description 02/28/1999 Results Only [facility] - Maple conversion [address] [place] [address] Darwin Benites MD [address] [place] [address] [phone] Social History Tobacco Use Types Packs/Day Years Used Date Smoking Tobacco: Never Assessed Sex and Gender Information Value Date Recorded Sex Assigned at Not on file Gender Identity Not on file Sexual Orientation Not on file documented as of this encounter Plan of Treatment Not on file documented as of this encounter Procedures Procedure Name Priority Date/Time Associated Diagnosis Comments CYTOPATHOLOGY Routine 02/28/1999 10:08 EST documented in this encounter Results * CYTOPATHOLOGY (02/28/1999 10:08 EST) Pathology Report: CYTOPATHOLOGY REPORT Reports generated via electronic interface contain original data; however they are lacking the format of the original report. Caution should be taken when reading/interpreti ng unformatted reports. Name: ? ARAVIND HUIZAR ? Accession #: ? [id number] : ? 1960 (Age: 38) ??F ?Collect Date: ? 02/28/1999 Location: ?Receive Date: ? 02/28/1999 Provider: ?DARWINZACHERY BENITES MD Copy to: ?DARWINZACHERY BENITES MD ? Specimen/Source: ?Sales[employer] Specialist ThinPrep Last Menstrual Period: ? GYNECOLOGIC ??CYTOPATHOLOGY ??REPORT Name: ARAVIND HUIZAR ?[facility] : 1960 ?? 38Y F ?Client ID: [id number] SS#: [id number] ? Clinician: DARWIN BENITES MD ?? Location: [facility] ??Copy to: ?? Specimen: ?[employer] Specialist ThinPrep ? Source: Cervix/Endocervix ?Collected: 02/26/99 ? [...] DIAGNOSIS: ? Atypical Squamous Cells Of Undetermined Significance (ASCUS), ? Cannot Rule Out Squamous Intraepithelial Lesion (MARISSA) ?? RECOMMENDATION: ? Recommend Clinical Correlation Or Further Evaluation, As ? Clinically Indicated ? Reviewed And Electronically Signed By: ? Ross Lezama M.D. ? Report Date: ?? 03/11/1999 [employer] Archived Tests - Final Diagnosis Text Field: Clinical History : ;Dysplasia, Rx cryo , NL exam. ? Document reviewed and electronically signed by: ? Conversion ? Report Date: ??03/11/1999 00:00 End of Report [facility] 02/28/1999 10:0 8 EST 02/28/1999 10:09 EST Darwin Benites MD PATHOLOGY ORDERABLES [facility] [address] [place] [address] documented in this encounter Visit Diagnoses Not on filedocumented in this encounter Care Teams Assistant Professor Of Geography Relationship Specialty Start Date End Date Lynda Cerda MD [address] [place] [id number] PCP - General 08/16/08 documented as of this encounter
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
--- OUTSIDE RECORDS SUMMARY | 2023-11-05 15:42 | XMS_ITS | Encounter Summary ---
Author Organization [facility] Address [address] [place] [address] Care Team Providers Care Gallery Manager Name Role Phone Lynda Cerda MD Primary Care Provider [phone] Encounter Details Date Type Department Care Team (Latest Contact Info) Description 08/02/2009 17:29 EDT - 08/02/2009 23:59 EDT Hospital Encounter [facility] [address] [place] [address] Guzman Quintero MD [address] [place] [address] Discharge Disposition: Home or Self Care Social [...] Code Departure Means Destination Home or Self Group Home documented in this encounter Plan of Treatment Not on file documented as of this encounter Visit Diagnoses Not on filedocumented in this encounter Care Teams Gallery Manager Relationship Specialty Start Date End Date Lynda Cerda MD [address] [place] [address] PCP - General 08/16/08 documented as of this encounter
--- OUTSIDE RECORDS SUMMARY | 2023-11-05 15:42 | XMS_ITS | Encounter Summary ---
Author Organization [facility] Address [address] [place] [address] Care Team Providers Care Laborer Chicken Farm Name Role Phone Lynda Cerda MD Primary Care Provider [phone] Reason for Visit * Reason Onset Date Comments Post-OP Follow Up 06/28/2010 Revision of sc ar on left wrist on 06/26/[address] Kathleen Quintero Encounter Details Date Type Department Care Team (Late st Contact Info) Description 06/28/2010 Telephone [facility] Acute Care Surgery - [facility] [address] [place] [address] Angelique Irizarry RN Post-OP Follow Up (Revision of scar on left wrist on 06/26/[address] Kathleen Quintero) Social History Tobacco Use Types Packs/Day Years [...] Miscellaneous Notes * Telephone Encounter - Angelique Irizarry, RN - 06/28/2010 1229 EDT After reviewing with Jose MEJIA, patient does need to keep hand and wrist out of water so sheshould use a plastic bag over the hand and wrist when showering. She is to not wear her compressionglove and after removal of the dressing she does not need to have another dressing on. She can apply a guaze wrap with bacitracin ointment if she wishes for protection or if any drainage. Call with any signs of infection such as: redness,swelling, warmth to touch, fever,increase pain, or drainage. Follow up appointment on , 07/04/10. * Telephone Encounter - Angelique Irizarry RN - 06/28/2010 1022 EDT Spoke with patient who states she is having more pain then she thought she would have but getting better today. Will be taking dressing off left wrist this afternoon when her daughter is available, but she has questions about care after that. 1. [...] on filedocumented in this encounter Care Teams Laborer Chicken Farm Relationship Specialty Start Date End Date Lynda Cerda MD [address] [place] [address] [address] [place] [address] PCP - General 08/16/08 documented as of this encounter
--- OUTSIDE RECORDS SUMMARY | 2023-11-05 15:42 | XMS_ITS | Encounter Summary ---
Author Organization [facility] [place] [address] Care Team Providers Care Customer Expert Name Role Phone Lynda Cerda MD Primary Care Provider [phone] Encounter Details Date Type Department Care Team (Late st Contact Info) Description 09/03/2015 External [place] [address] Fermín Westbrook MD [facility] [place] [address] Social History Tobacco Use Types Packs/Day Years [...] Procedure Name Priority Date/Time Associated Diagnosis Comments EMG SCAN Routine 09/03/2015 documented in this encounter Results * Scan Doc: EMG (09/03/2015) Fermín Westbrook MD MEDIA MGR SCAN EXT O RDR/RSLT documented in this encounter Visit Diagnoses Not on filedocumented in this encounter Care Teams Customer Expert Relationship Specialty Start Date End Date Lynda Cerda MD [address] [place], [place] [id number] PCP - General 09/09/13 documented as of this encounter
--- OUTSIDE RECORDS SUMMARY | 2023-11-05 15:42 | XMS_ITS | Encounter Summary ---
Author Organization [facility] Address [address] [place] [address] Care Team Providers Care Pellet Post Inspector Name Role Phone Lynda Cerda MD Primary Care Provider [phone] Reason for Visit * Reason Onset Date Comments Appointment Related 04/09/2010 regarding ap pointment on 04/11/10 Encounter Details Date Type Department Care Team (Late st Contact Info) Description 04/09/2010 Telephone [facility] Acute Care Surgery - [address] [address] Angelique Irizarry RN Appointment Related (regarding appointment on 04/11/10) Social History Tobacco Use Types Packs/Day Years [...] Encounter - Angelique Irizarry RN - 04/09/2010 1461 EST Patient had received call from registration [...] that he may need to leave. Also patient states that her insurance has changed and if OT is needed,it will be covered. documented in this encounter Plan of Treatment Not on file documented as of this encounter Visit Diagnoses Not on filedocumented in this encounter Care Teams Pellet Post Inspector Relationship Specialty Start Date End Date Lynda Cerda MD [address] [place] [address] [address] [place] [address] PCP - General 08/16/08 documented as of this encounter
--- OUTSIDE RECORDS SUMMARY | 2023-11-05 15:42 | XMS_ITS | Encounter Summary ---
Author Organization [facility] Address [address] [place] [address] Care Team Providers Care Sociology Instructor Name Role Phone Lynda Cerda MD Primary Care Provider [phone] Encounter Details Date Type Department Care Team (Late st Contact Info) Description 03/02/2000 Results Only [facility] [address] [place] [address] Darwin Benites MD [address] [place] [address] [phone] Social History Tobacco Use Types Packs/Day Years Used Date Smoking Tobacco: Never Assessed Sex and Gender Information Value Date Recorded Sex Assigned at Not on file Gender Identity Not on file Sexual Orientation Not on file documented as of this encounter Plan of Treatment Not on file documented as of this encounter Procedures Procedure Name Priority Date/Time Associated Diagnosis Comments CYTOPATHOLOGY Routine 03/02/2000 0:00 EST documented in this encounter Results * CYTOPATHOLOGY (03/02/2000 0:00 EST) Pathology Report: CYTOPATHOLOGY REPORT Reports generated via electronic interface contain original data; however they are lacking the format of the original report. Caution should be taken when reading/interpreti ng unformatted reports. Name: ? ARAVIND HUIZAR ? Accession #: ? [id number] : ? 1960 (Age: 39) ??F ?Collect Date: ? 03/02/2000 Location: ? [facility] ? Receive Date: ? 03/03/2000 Provider: ?DARWIN BENITES MD Copy to: ? Specimen/Source: ?ThinPrep Pap Test, Cervix/Endocervix Last Menstrual Period: ? 02/19/00 Previous Gynecologic Pathology: ? MARISSA Treatment History: ? Cryotherapy: for dysplasia ? SPECIMEN ADEQUACY ? Satisfactory for evaluation. GENERAL CATEGORIZATION ? Within Normal Limits ? Document reviewed and electronically signed by: ? PHIL Rendon(ASCP) ? Report Date: ??03/03/2000 14:31 End of Report AARON MILIAN 03/02/2000 03/03/2000 Darwin Benites MD PATHOLOGY ORDERABLES Performing Organization Address City/State/[facility] Co de Phone Number [facility] [address] [place] [address] documented in this encounter Visit Diagnoses Not on filedocumented in this encounter Care Teams Sociology Instructor Relationship Specialty Start Date End Date Lynda Cerda MD [address] [place] [phone] PCP - General 08/16/08 documented as of this encounter
--- OUTSIDE RECORDS SUMMARY | 2023-11-05 15:43 | XMS_ITS | Encounter Summary ---
Author Organization [facility] [address] [place] [address] Care Team Providers Care Rn Post Partum Name Role Phone Lynda Cerda MD Primary Care Provider Reason for Visit * Reason Comments Follow-up Encounter Details Date Type Department Care Team (Late st Contact Info) Description 09/23/2013 9:00 AM EDT Follow-Up Gastroenterology at [facility] [place] [place] [address] Jemima Montes De Oca, [employer] [facility] [place] [address] Drug-induced constipation; Abdominal pain; Nausea and vomiting Discharge Disposition: Home Social History Tobacco Use Types Packs/Day Years Used Date Smoking Tobacco: Every Day Cigarettes 1 27 Smokeless Tobacco: Never Alcohol Use Standard Drinks/Week [...] EDT documented in this encounter Patient Instructions * Patient Instructions* Jemima Montes De Oca APRN - 09/23/2013 9:53 [...] before bedtime 2. Call or email via [facility] with an update after taking Amitiza for 2 weeks 3. Abdominal Pain: Bentyl 10 mg every 8 hours as needed 4. Consider trying the FODMAP diet 5. Small bowel follow through on same day as follow up appointment 6. Follow up 2 months Jemima Montes De Oca APRN [phone] documented in this encounter Progress Notes * Jemima Montes De Oca APRN - 09/23/2013 9:25 AM EDT Subjective: Patient ID: Bela Alcantara is a 52 y.o. woman who presents for follow up of her gastrointestinalsymptoms. HPI Comments: Initial visit 05/18/2013: Ms. Alcantara [...] past fall into February but this has resolvedat this time. She experiences early satiety and post prandial fullness for the past few months. Lab work on 04/15/2013: CBC 8.59, 14.6/42.4, 302; CMP wnl except for slightly elevated creatinine and GFR 47.18. Abdominal US on 04/15/2013 unremarkable except [...] day. Did try 2 tablets qhs but experi enced diarrhea. Stools remain hard to pellet like. [...] Her behavior is normal. Judgment and thought contentnormal. Assessment and Plan: #Narcotic bowel syndrome: discussed [...] before bedtime 2. Call or email via [facility] with an update in 2 weeks 3. Bentyl 10 mg TID prn 4. Consider trying the FODMAP diet 5. SBFT 6. Follow up 2 months Patient understands and is agreeable to the above plan. Written instructions provided. Jemima Monte sDe Oca APRN Section of Gastroenterology and Hepatology [place] [phone] documented in this encounter Plan of Treatment Not on file documented as of this encounter Visit Diagnoses Diagnosis Drug-induced constipation Other constipation Abdominal pain Abdominal pain, unspecified site Nausea and vomiting Nausea with vomiting documented in this encounter Care Teams Rn Post Partum Relationship Specialty Start Date End Date Lynda Cerda MD [address] [facility] [address] [place] [address] PCP - General 09/09/13 documented as of this encounter
--- OUTSIDE RECORDS SUMMARY | 2023-11-05 15:43 | XMS_ITS | Encounter Summary ---
Author Organization [facility] Address [facility] [place] [address] Care Team Providers Care Hvac Installation Technician Name Role Phone Lynda Cerda MD Primary Care Provider [phone] Reason for Visit * Reason Onset Date Comments Medication Refill 06/20/2015 Encounter Details Date Type Department Care Team (Late st Contact Info) Description 06/20/2015 Refill [place] [address] Chris Francis MD [facility] [place] [address] Chronic bilateral thoracic back pain Social History Tobacco Use Types Packs/Day [...] pain documented in this encounter Care Teams Hvac Installation Technician Relationship Specialty Start Date End Date Lynda Cerda MD [address] [place] [address] PCP - General 09/09/13 documented as of this encounter
--- OUTSIDE RECORDS SUMMARY | 2023-11-05 15:43 | XMS_ITS | Encounter Summary ---
[place] [address] Care Team Providers Care Account Planner Name Role Phone Lynda Cerda MD Primary Care Provider [phone] Reason for Visit * Reason Onset Date Comments Medication Refill 09/30/2013 Encounter Details Date Type Department Care Team (Late st Contact Info) Description 09/30/2013 Refill [place] [address] Subha Hernandez, RN Social History Tobacco Use Types Packs/Day Years [...] filedocumented in this encounter Care Teams Account Planner Relationship Specialty Start Date End Date Lynda Cerda MD [address] [place] [address] PCP - General 09/09/13 documented as of this encounter
--- OUTSIDE RECORDS SUMMARY | 2023-11-05 15:43 | XMS_ITS | Encounter Summary ---
Author Organization [facility] [address] [place] [address] Care Team Providers Care Child Attendant Name Role Phone None Primary Care Provider Unavailabl e Reason for Visit * Reason Onset Date Comments Prior Authorization 05/25/2013 [place] Encounter Details Date Type Department Care Team (Late st Contact Info) Description 05/25/2013 [place] [phone] Brittney Morgan CMA Prior Authorization (Krystle) Social History Tobacco Use Types Packs/Day Years Used Date Smoking Tobacco: Every Day Cigarettes 1 27 Alcohol Use Standard Drinks/Week Comments Yes 0 (1 standard drink = 0.6 oz pur e alcohol) Periodically Sex and Gender Information Value Date Recorded Sex Assigned at Not on file Gender Identity Not on file Sexual Orientation Not on file documented as of this encounter Miscellaneous Notes * Telephone Encounter - Brittney Morgan CMA - 05/25/2013 4:10 PM EDT Medication: Linzess Dosage: 145 mcg Frequency & Route: 1 po qd Pharmacy & Phone#: Insurance & Phone #: [place] [phone] ID #: [id number] Trialed (dosage, frequency): Miralax Notes: CRHIS approved til August 23, 2013 documented in this encounter Plan of Treatment Not on file documented as of this encounter Visit Diagnoses Not on filedocumented in this encounter Care Teams Child Attendant Relationship Specialty Start Date End Date None None PCP - General 05/18/13 09/08/13 documented as of this encounter
--- OUTSIDE RECORDS SUMMARY | 2023-11-05 15:43 | XMS_ITS | Encounter Summary ---
[facility] [place] [address] Care Team Providers Care Soft Iron Inspector Name Role Phone Savita Cruz APRN Primary Care Provider Encounter Details Date Type Department Care Team (Late st Contact Info) Description 01/11/2011 - 01/11/2011 11:59 PM EST Hospital Encounter [place] [address] [address] Melony Gilliland Pain Discharge Disposition: Home Social History Tobacco Use Types Packs/Day Years Used Date Smoking Tobacco: Never Assessed Sex and Gender Information Value Date Recorded Sex Assigned at Not on file Gender Identity Not on file Sexual Orientation Not on file documented as of this encounter Medications at Time of Discharge Medication Sig Dispensed Refills Start Date End Date ALPRAZolam (XANAX) 0.5 mg tablet 0.5MG = 1 Tablet(s), PO, Twice daily PRN 04/21/2006 09/23/2013 documented as of this encounter Plan of Treatment Not on file documented as of this encounter Procedures Procedure Name Priority Date/Time Associated Diagnosis Comments FILM LIBRARY STORAGE ONLY MR WRIST Routine 01/11/2011 12:00 AM EST Pain documented in this encounter Results * Film Library- Storage only MR Wrist (01/11/2011 12:00 AM EST) Narrative [facility] - 06/29/2015 6:27 PM EDT This exam is for storage only and is auto-finalizing. Dr Melony Gilliland IMG FILM LIBRARY ORD ERABLES [facility] [place], [place] documented in this encounter Visit Diagnoses Diagnosis Pain Generalized pain documented in this encounter Care Teams Soft Iron Inspector Relationship Specialty Start Date End Date Savita Cruz APRN [address] [place] [address] PCP - General 01/15/10 05/17/13 documented as of this encounter
--- OUTSIDE RECORDS SUMMARY | 2023-11-05 15:43 | XMS_ITS | Encounter Summary ---
Author Organization [facility] Address [facility] Ana María [place] [address] Care Team Providers Care Assisted Living Home Director Name Role Phone Lynda Cerda MD Primary Care Provider [phone] Encounter Details Date Type Department Care Team (Latest Contact Info) Description 07/11/2015 10:30 AM EDT Office Visit Neph[place] [address] Harshal Amato MD [facility] [place] [address] Anemia of chronic renal failure, stage 1 Social History Tobacco Use Types Packs/Day Years [...] documented in this encounter Progress Notes * Harshal Amato MD - 07/11/2015 2:17 PM EDT The patient returns for follow-up of her mild chronic renal insufficiency. Overall she's doing okay. She has no specific renal complaints today. Physical exam her vital signs are in good range with a blood pressure 110/68, HEENT is unremarkable, lungs are clear, abdomen her cardiac exam is normal, abdomen is benign, extremities are without edema. The patient's renal function remains stable. I did give her a card for the [place] quit line as shecontinues to smoke at least a pack per day of cigarettes. She will try to call them and see if she can make any progress in this regard. Otherwise I don't feel I need to see her in follow-up for her k idney condition which appears stable the present time. documented in this encounter Plan of Treatment Not on file documented as of this encounter Procedures Procedure Name Priority Date/Time Associated Diagnosis Comments HEMOGRAM STAT 07/11/2015 12:11 PM EDT Anemia of chronic renal failure, stage 1 DIFFERENTIAL, AUTOMATED STAT 07/11/2015 12:11 PM EDT Anemia of chronic renal failure, stage 1 CBC (WITH DIFF) STAT 07/11/2015 12:11 PM EDT Anemia of chronic renal failure, stage 1 BASIC METABOLIC PANEL STAT 07/11/2015 12:11 PM EDT Anemia of chronic renal failure, stage 1 PROTEIN/CREATININE RATIO, URINE Routine 07/11/2015 11:00 AM EDT Anemia of chronic renal failure, stage 1 URINALYSIS WITH REFLEX CULTURE Routine 07/11/2015 11:00 AM EDT Anemia of chronic renal failure, stage 1 documented in this encounter Results * (ABNORMAL) Differential, Automated (07/11/2015 12:11 PM EDT) Neutrophil % 54.2 % [facility] Neutrophil Absolute 5.19 1.50 - 6.30 x10(3)/[facility] Lymph % 39.6 % [facility] Lymphocytes Abs 3.8(H) 1.0 - 3.6 x10(3)/[facility] Monocyte % 5.0 % [facility] Monocyte Abs 0.5 0.2 - 1.0 x10(3)/[facility] Eos % 0.7 % [facility] Eosinophils Abs 0.1 0.0 - 0.5 x10(3)/[facility] Basophil % 0.3 % [facility] Baso Absolute 0.0 0.0 - 0.2 x10(3)/[facility] Immature Gran % 0.20 % [facility] Comment: Immature granulocytes(IG's)percentage and absolute count will include metamyelocytes, myelocytes, and promyelocytes. Blood smears from CBCs yielding IG's will be scanned manually for concordance. If this scan disagrees with the automated IG or if promyelocytes are noted, a manual differential will be performed. Immature Gran Absolute 0.02 0.00 - 0.05 x10(3)/[facility] Blood specimen (specimen) 07/11/2015 12:11 PM EDT 07/11/2015 12:25 PM EDT Narrative Resulting Agency Comment Spec In Lab Harshal Amato MD HEMATOLOGY ORDERABL ES [facility] [place] [address] * (ABNORMAL) Hemogram (07/11/2015 12:11 PM EDT) White Blood Cell 9.6 4.0 - 10.0 x10(3)/[facility] Red Blood Cell 4.25 3.93 - 5.22 x10(6)/[facility] Hemoglobin 13.8 11.2 - 15.7 gm/dL [facility] Hematocrit 39.4 34.0 - 45.0 % [facility] Mean Cell Volume 92.7 79.0 - 94.0 fL [facility] Mean Cell Hemoglobin 32.5(H) 26.6 - 32.2 pg [facility] Mean Cell Hemoglobin Concentration 35.0 32.0 - 36.5 gm/dL [facility] Platelet 331 145 - 370 x10(3)/mc L [facility] RDW Standard Deviation 45.8 35.0 - 46.0 fL [facility] RDW coefficient of variation 13.6 10.9 - 14.4 % [facility] Mean Platelet Volume 10.0 9.0 - 12.0 fL [facility] Blood specimen (specimen) 07/11/2015 12:11 PM EDT 07/11/2015 12:25 PM EDT Narrative Resulting Agency Comment Spec In Lab Harshal Amato MD HEMATOLOGY ORDERABL ES [facility] [place] [address] * (ABNORMAL) Basic Metabolic Panel (non-fasting) (07/11/2015 12:11 PM EDT) Glucose 95 65 - 199 mg/dL [facility] Comment:Diabetes: >=200 mg/d L plus symptoms Blood Urea Nitrogen 12 8 - 18 mg/dL [facility] Creatinine 1.01 0.70 - 1.20 mg/dL [facility] Comment: Please note that the pediatric reference intervals supplied above were not validated at [facility]. Results from pediatric patients should be interpreted in conjunction to the patient's age, height and muscle mass. Sodium 139 135 - 145 mmol/L [facility] Potassium 3.8 3.5 - 5.0 mmol/L [facility] Comment: Please note: ??Patients with WBC >100,000 may have falsely elevated Potassium levels. ??For accurate Potassium quantification in these patients send serum separator tube (gold top) for subsequent determinations. ??Contact the Clinical Chemistry Laboratory if there are any questions. Chloride 97(L) 98 - 107 mmol/L [facility] Carbon Dioxide 24 22 - 31 mmol/L [facility] Anion Gap 18(H) 5 - 15 mmol/L [facility] Calcium 9.3 8.5 - 10.5 mg/dL [facility] Est Glomerular Filtration Rate 57(L) >=60 [facility] Comment: This estimated GFR (eGFR) value was calculated using the MDRD equation which has been validated on patients between the ages of 18 and 70. The MDRD should not be used to assess kidney function in patients < 18 years of age or in patients with extremes of body mass, or in patients with acute kidney failure. This value should be multiplied by 1.2 for patients. For further information please copy and paste the following links into your internet browser. [email or web address] [email or web address] Blood specimen (specimen) 07/11/2015 12:11 PM EDT 07/11/2015 12:25 PM EDT Narrative Resulting Agency Comment Spec In Lab Harshal Amato MD CHEMISTRY ORDERABLE S [facility] [place] [address] * (ABNORMAL) Urinalysis with reflex Culture (07/11/2015 11:00 AM EDT) Glucose, Urine Dipstick Negative Negative mg/dL [facility] Protein, Urine Dipstick Negative Negative mg/dL [facility] Bilirubin, Urine Dipstick Negative Negative mg/dL [facility] Comment: Clinical correlation required for positive Urine Bilirubin results as false positive may occur with some drugs and drug related products. If a false positive is suspected a serum total bilirubin should be considered if clinically indicated. Urobilinogen, Urine Dipstick 2.0(A) Normal mg/dL [facility] pH, Urn (dipstick) 6.0 5.0 - 8.0 [facility] Blood, Urine Dipstick Negative Negative mg/dL [facility] Ketone, Urine Dipstick Negative Negative mg/dL [facility] Nitrite, Urine Dipstick Negative Negative [facility] Leukocytes, Urine Dipstick Negative Negative [facility] Appearance, Urine Dipstick Clear Clear [facility] Specific Geronimo Urine Automated 1.030 1.002 - 1.030 [facility] Color, Urine Dipstick Ana Yellow [facility] RBC, Urine Not Present 0 - 4 [facility] WBC, Urine Not Present 0 - 5 [facility] Reflex to Culture No [facility] Urine specimen (specimen) 07/11/2015 11:00 AM EDT 07/11/2015 12:05 PM EDT Narrative Resulting Agency Comment Spec In Lab Harshal Amato MD URINE ORDERABLES Performing Organization Address City/[facility]/ZIP Co de Phone Number [facility] [place] [address] * (ABNORMAL) Protein/Creatinine Ratio, urine (07/11/2015 11:00 AM EDT) Creatinine, Urine 289 mg/dL [facility] Protein, Urine 21(H) 0 - 12 mg/dL [facility] Protein / Creatinine Ratio, Urine <0.1 ratio [facility] Urine specimen (specimen) 07/11/2015 11:00 AM EDT 07/11/2015 12:05 PM EDT Narrative Resulting Agency Comment Spec In Lab Harshal Amato MD URINE ORDERABLES Performing Organization Address City/[facility]/ZIP Co de Phone Number [facility] [place] [address] documented in this encounter Visit Diagnoses Diagnosis Anemia of chronic renal failure, stage 1 documented in this encounter Care Teams Assisted Living Home Director Relationship Specialty Start Date End Date Lynda Cerda MD [address] [place] [address] PCP - General 09/09/13 documented as of this encounter
--- OUTSIDE RECORDS SUMMARY | 2023-11-05 15:43 | XMS_ITS | Encounter Summary ---
Author Organization [facility] Ana María [place] [address] Care Team Providers Care Fire Loss Prevention Engineer Name Role Phone Lynda Cerda MD Primary Care Provider [phone] Reason for Visit * Reason Onset Date Comments Medication Refill 09/30/2013 Encounter Details Date Type Department Care Team (Late st Contact Info) Description 09/30/2013 Refill Gastroenterology at [facility] [place] [address] Damaso Gutierrez APRN [facility] [place] [address] Social History Tobacco Use Types Packs/Day Years [...] as of this encounter Miscellaneous Notes * Addendum Note - Damaso Gutierrez APRN - 10/06/2013 7:31 AM EDTAddended by: DAMASO GUTIERREZ on: 10/06/2013 07:31 AM Modules accepted: Orders * Telephone Encounter - Subha Hernandez RN - 09/30/2013 12:51 PM EDT Medication: amitiza Dosage: 24 mc bid Frequency & Route:bid Pharmacy & Phone#: [facility] [phone] Insurance & Phone #: [place] [phone] ID #: [id number] Trialed (dosage, frequency): Notes: Approved for until Dec 29 2013 documented in this encounter Plan of Treatment Not on file documented as of this encounter Visit Diagnoses Not on filedocumented in this encounter Care Teams Fire Loss Prevention Engineer Relationship Specialty Start Date End Date Lynda Cerda MD [address] [place] [address] PCP - General 09/09/13 documented as of this encounter
--- OUTSIDE RECORDS SUMMARY | 2023-11-05 15:43 | XMS_ITS | Encounter Summary ---
Author Organization [facility] [place] [address] Care Team Providers Care Client Solutions Director Name Role Phone Lynda Cerda MD Primary Care Provider [phone] Encounter Details Date Type Department Care Team (Late st Contact Info) Description 06/05/2015 Telephone Neph[place] [id number] Eliane Smith Social History Tobacco Use Types Packs/Day Years [...] encounter Miscellaneous Notes * Telephone Encounter - Eliane Diego - 06/05/2015 9:35 AM EDT Left message with patient tocall back and make follow up appointment . documented in this encounter Plan of Treatment Not on file documented as of this encounter Visit Diagnoses Not on filedocumented in this encounter Care Teams Client Solutions Director Relationship Specialty Start Date End Date Lynda Cerda MD [address] [place] [address] PCP - General 09/09/13 documented as of this encounter
--- OUTSIDE RECORDS SUMMARY | 2023-11-05 15:43 | XMS_ITS | Encounter Summary ---
Author Organization Count Includes [facility] Address [facility] [place] [place] [address] Care Team Providers Care Rim Turning Machine Operator Name Role Phone Lynda Cerda MD Primary Care Provider [phone] Encounter Details Date Type Department Care Team (Latest Contact Info) Description 07/16/2015 1:45 PM EDT - 07/16/2015 11:59 PM EDT Hospital Encounter XRay at [address] [place] [address] César Boswell MD [facility] [place] [address] Left wrist pain Discharge Disposition: Home Social History Tobacco Use [...] Procedure Name Priority Date/Time Associated Diagnosis Comments XR WRIST 3 VIEWS LEFT Routine 07/16/2015 2:16 PM EDT Left wrist pain documented in this encounter Results * XR wrist complete minimum 3 views Left (GENERIC) (07/16/2015 2:16 PM EDT) Anatomical Region Laterality Modality Left Digital Radiogra phy Impressions 07/16/2015 2:34 PM EDT No acute osseous abnormalities. Subtle scapholunate widening on the frontal view. Narrative 07/16/2015 2:34 PM EDT EXAMINATION: XR WRIST COMPLETE MINIMUM 3 VIEWS LEFT CLINICAL HISTORY: LEFT WRIST PAIN 2ND OPIN TECHNIQUE: Frontal, oblique, lateral, and scaphoid specific views of the left wrist, 4 views. COMPARISON: Outside facility left wrist MRI of 01/11/2011. FINDINGS: Chronic changes of the DRUJ. Mild degenerative change at the first carpometacarpal joint. No acute fracture lucencies. There is subtle/the suggestion of mild scapholunate widening. Procedure Note Cody Andrews MD - 07/16/2015 EXAMINATION: XR WRIST COMPLETE MINIMUM 3 VIEWS LEFT CLINICAL HISTORY: LEFT WRIST PAIN 2ND OPIN TECHNIQUE: Frontal, oblique, lateral, and scaphoid specific views of theleft wrist, 4 views. COMPARISON: Outside facility left wrist MRI of 01/11/2011. FINDINGS: Chronic changes of the DRUJ. Mild degenerative change at the first carpometacarpal joint. No acute fracture lucencies. There is subtle/the suggestion of mild scapholunate widening. IMPRESSION No acute osseous abnormalities. Subtle scapholunate widening on thefrontal view. César Boswell MD IMG DX ORDERABLES documented in this encounter Visit Diagnoses Diagnosis Left wrist pain Pain in joint, forearm documented in this encounter Care Teams Rim Turning Machine Operator Relationship Specialty Start Date End Date Lynda Cerda MD [address] [place] [address] PCP - General 09/09/13 documented as of this encounter
--- OUTSIDE RECORDS SUMMARY | 2023-11-05 15:43 | XMS_ITS | Encounter Summary ---
Author Organization [facility] [place] [address] [address] Care Team Providers Care Real Estate Teacher Name Role Phone Lynda Cerda MD Primary Care Provider [phone] Encounter Details Date Type Department Care Team (Late st Contact Info) Description 07/16/2015 Orders [place] [address] César Boswell MD [facility] [place] [address] Social History Tobacco Use Types Packs/Day Years [...] on filedocumented in this encounter Care Teams Real Estate Teacher Relationship Specialty Start Date End Date Lynda Cerda MD [address] [place] [address] PCP - General 09/09/13 documented as of this encounter
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
--- OUTSIDE RECORDS SUMMARY | 2023-11-05 15:43 | XMS_ITS | Encounter Summary ---
Author Organization [facility] [place] [address] Care Team Providers Care Registered Radiologic Technologist Name Role Phone None Primary Care Provider Unavailabl e Encounter Details Date Type Department Care Team (Latest Contact Info) Description 06/30/2013 2:13 PM EDT - 06/30/2013 4:56 PM EDT Hospital En[place] [address] Harshal Roy MD [facility] [place] [address] Gasper Salazar MD [facility] [place] [address] Discharge Disposition: Home Social History Tobacco Use [...] - documented in this encounter Discharge Instructions * Discharge Instructions* Lis Rodriguez RN - 06/30/2013 4:29 PM EDT Colonoscopy [...] as directed. Your Doctor will tell you when to restart your prescribed blood thinners The IV [...] next colonoscopy. The results of your test and your risk for colorectal cancer will help your doctor decide how often you need to be checked. Thursday-Thursday Clinic [phone] 8a-5p Same Day Endo [phone] 7a-8p Otherwise contact [phone] and ask to speak to the administrative project coordinator application design engineer Follow up care is a high part of your treatment and safety. Be sure to make and go to all appointments, and call your doctor if you are having problems. Discharge instructions reviewed with patient who expresses understanding documented in this encounter Medications at Time of Discharge Medication Sig Dispensed Refills Start Date End Date oxyCODONE (OXYCONTIN) 20 mg CR tablet Take 20 mg by mouth 3 times daily. oxyCODONE-acetaminophen (PERCOCET) 5-325 mg per tablet Take 1 tablet by mouth every 4 hours as needed. acetaminophen (TYLENOL) 500 mg tablet Take 1,000 mg by mouth every 6 hours as needed. 07/16/2015 thiamine 100 mg tablet Take 100 mg by mouth daily. 06/22/2014 ERGOCALCIFEROL, VITAMIN D2, (VITAMIN D ORAL) Take 1,000 Units by mouth. 06/22/2014 ALPRAZolam (XANAX) 0.5 mg tablet 0.5MG = 1 Tablet(s), PO, Twice daily PRN 04/21/2006 09/23/2013 documented as of this encounter H&P Notes * Gasper Salazar MD - 06/30/2013 3:44 PM [...] signed. documented in this encounter Miscellaneous Notes * Miscellaneous - Provider, Scanning - 06/30/2013 9:31 PM EDT * Miscellaneous - Provider, Scanning - 06/30/2013 9:23 PM EDT * Miscellaneous - Provider, Scanning - 06/30/2013 4:53 PM EDT * Op Note - Gasper Salazar MD - 06/30/2013 4:20 PM EDT [facility] Operative Note Patient Name: Aravind Huizar : [id number] MR#: [id number] Case Date: 06/30/2013 Surgeon: Surgeon(s) and Role: [...] Priority Date/Time Associated Diagnosis Comments SURGICAL PATHOLOGY REPORT Routine 06/30/2013 4:21 PM EDT SPECIMEN TO PATHOLOGY Routine 06/30/2013 4:21 PM EDT SPECIMEN TO PATHOLOGY Routine 06/30/2013 4:21 PM EDT COLONOSCOPY Routine 06/30/2013 3:44 PM EDT COLONOSCOPY, POLYPECTOMY, REMOVAL LESION BY SNARE (WRVU 4.57) 06/30/2013 3:43 PM EDT Colon cancer screening documented in this encounter Results * Surgical Pathology Report (06/30/2013 4:21 PM EDT) Final Diagnosis ? [facility] ? Provider: ?? Gasper SALAZAR ?Pt. Name: ?? ARAVIND HUIZAR ? Acc #: ?[id number] ?Pt. ? Col Date: ?? 06/30/2013 ?/Sex: ?1960,(52 years),Female ? Rec Date: ?? 06/30/2013 ?LOC: ?4T ? SURGICAL PATHOLOGY ? ---Pathologic Diagnosis--- ? A - Transverse colon polyp, biopsy: ? Benign colonic mucosa with marked, obscuring cautery artifact. ? B - Sigmoid polyp, biopsy: ? Hyperplastic polyp. ? CR-0 ; CR-PX ? 07/01/13 ? JRP ? 07/01/13 Verified by: ? Hjaa Rodriguez MD ? Pathologist ? (Electronic Signature) ? The attending pathologist whose signature appears on this report has ? reviewed all diagnostic slides and has edited the gross and/or ? microscopic portion of the report in rendering the final pathologic ? diagnosis. ? ---Gross Description--- ? A - Labeled/Fixative : Polyp-transverse , formalin. ? Quantity/Size: One, 0.3 x 0.2 x 0.1 cm. ? Tissue Description: Lozada tissues. ? Sections/Process ing: (T1) ? B - Labeled/Fixative : Polyp-sigmoid, formalin. ? Quantity/Size: One, 0.3 x 0.3 x 0.1 cm. ? Tissue Description: Lozada tissues. ? Sections/Process ing: (T1) ??cjl ? ---Clinical Information--- ? Specimen Submitted: ? A - Polyp- transverse ? B - Polyp- sigmoid ? Clinical History: ? 52 YO4 average risk screening ? Clinical Diagnosis: ? Not provided 07/01/2013 2:[address] [facility] GI Biopsy 06/30/2013 4:21 PM EDT 06/30/2013 4:21 PM EDT GI Biopsy 06/30/2013 4:21 PM EDT 06/30/2013 4:21 PM EDT L Fabiano Salazar MD PATHOLOGY/CYTOLOGY O FELICITA [facility] [place] [address] * Specimen to Pathology (surgical or derm) (06/30/2013 4:21 PM EDT) AP Specimen 06/30/2013 4:21 PM EDT 06/30/2013 4:21 PM EDT Narrative [facility] - 06/30/2013 4:21 PM EDT Specimen requisition ordered. ??Separate Pathology report to follow L Fabiano Salazar MD PATHOLOGY/CYTOLOGY O FELICITA [facility] * Specimen to Pathology (surgical or derm) (06/30/2013 4:21 PM EDT) AP Specimen 06/30/2013 4:21 PM EDT 06/30/2013 4:21 PM EDT Narrative [facility] - 06/30/2013 4:21 PM EDT Specimen requisition ordered. ??Separate Pathology report to follow L Fabiano Salazar MD PATHOLOGY/CYTOLOGY O FELICITA [facility] * COLONOSCOPY (06/30/2013 3:44 PM EDT) COLONOSCOPY [facility] Endoscopy Patient Name: Aravind Huizar ? Procedure Date: 06/30/2013 3:44 PM ? N: [id number] ? Date of : 1960 ? Age: 52 ? Order #: [id number] ? Procedure: ? Colonoscopy Indications: ? Screening for colorectal malignant ? neoplasm Providers: ? LAdriane Salazar MD, Aggie Chavez, ? RN, Kala Quigley, Code Number Stamper Referring MD: ? Medicines: ? Monitored Anesthesia [...] Await pathology results. ? __ L. Fabiano Salazar MD 06/30/2013 4:33 PM Number of Addenda: 0 Note Initiated On: 06/30/2013 3:44 PM PROVATION 06/30/2013 3:44 PM EDT Unknown GENERAL SURGICAL ORD ERABLES PROVATION documented in this encounter Visit Diagnoses Not on filedocumented in this encounter Administered Medications Inactive Administered Medications - up to 3 most recent administrations Medication Order MAR Action Action Date Dose Rate Site lactated ringers infusion 100 mL/hr, Intravenous, CONTINUOUS, Starting on Merly 06/30/13 at 1515, Until Merly 06/30/13 at 1648, Endoscopy (Day of Procedure) New Bag 06/30/2013 3:13 PM EDT 100 mL/hr 100 mL/hr documented in this encounter Active and Recently Administered Medications Times are shown in EDT. Continuous Medication Order 06/28/2013 06/29/2013 06/30/2013 lactated ringers infusion (CANCELED) 100 mL/hr, Intravenous, CONTINUOUS, Starting on Merly 06/30/13 at 1515, Until Merly 06/30/13 at 1648, Endoscopy (Day of Procedure) 1513 (New Bag - Prov ider: Rolanda Odell RN) documented in this encounter Care Teams Registered Radiologic Technologist Relationship Specialty Start Date End Date None None PCP - General 05/18/13 09/08/13 documented as of this encounter
--- OUTSIDE RECORDS SUMMARY | 2023-11-05 15:43 | XMS_ITS | Encounter Summary ---
Author Organization [facility] [address] [place] [address] Care Team Providers Care Clinical Coordinator Name Role Phone None Primary Care Provider Unavailabl e Encounter Details Date Type Department Care Team (Late st Contact Info) Description 06/30/2013 3:15 PM EDT - 06/30/2013 4:00 PM EDT [place] [address] Gasper Salazar MD [facility] [place] [address] COLONOSCOPY, POLYPECTOMY, REMOVAL LESION BY SNARE (WRVU 4.57) Social History Tobacco Use Types Packs/Day Years [...] you need to be checked. Thursday-Thursday Clinic [phone] 8a-5p Same Day Endo [phone] 7a-8p Otherwise contact [phone] and ask to speak to the road contractor web content coordinator Follow up care is a high part [...] Salazar MD - 06/30/2013 4:20 PM EDT [facility] Operative Note Patient Name: Aravind Huizar : [id number] MR#: [id number] Case Date: 06/30/2013 Surgeon: Surgeon(s) and Role: [...] (06/30/2013 4:21 PM EDT) Final Diagnosis ? [facility] ? Provider: ?? Gasper SALAZAR ?Pt. Name: ?? ARAVIND HUIZAR ? Acc #: ?[id number] ?Pt. ? Col Date: ?? 06/30/2013 ?/Sex: [...] ROONEY, Haja Wells ? Pathologist ? (Electronic Signature) ? The [...] ? Not provided 07/01/2013 2:34 PM EDT [facility] GI Biopsy 06/30/2013 4:21 PM EDT 06/30/2013 4:21 PM EDT GI Biopsy 06/30/2013 4:21 PM EDT 06/30/2013 4:21 PM EDT L Fabiano Salazar MD PATHOLOGY/CYTOLOGY O FELICITA Performing Organization Address [facility] Co de Phone Number [facility] [place] [address] * Specimen to Pathology (surgical or derm) (06/30/2013 4:21 PM EDT) AP Specimen 06/30/2013 4:21 PM EDT 06/30/2013 4:21 PM EDT Narrative [facility] - 06/30/2013 4:21 PM EDT Specimen requisition ordered. ??Separate Pathology report to follow L Fabiano Salazar MD PATHOLOGY/CYTOLOGY O FELICITA Performing Organization Address City/[facility] Co de Phone Number [facility] * Specimen to Pathology (surgical or derm) (06/30/2013 4:21 PM EDT) AP Specimen 06/30/2013 4:21 PM EDT 06/30/2013 4:21 PM EDT Narrative [facility] - 06/30/2013 4:21 PM EDT Specimen requisition ordered. ??Separate Pathology report to follow L Fabiano Salazar MD PATHOLOGY/CYTOLOGY Lilly [facility] * COLONOSCOPY (06/30/2013 3:44 PM EDT) COLONOSCOPY [facility] Endoscopy Patient Name: Aravind Huizar ? Procedure Date: 06/30/2013 3:44 PM ? N: [id number] ? Date of : 1960 ? Age: 52 ? Order #: [id number] ? Procedure: ? Colonoscopy Indications: ? Screening for colorectal malignant ? neoplasm Providers: ? Denisse Salazar MD, Aggie Chavez, ? RN, Kala Quigley, Veterinarian Poultry Referring MD: ? Medicines: ? Monitored Anesthesia [...] Colon cancer screening Special screening for malignant neoplasms, colon documented in this encounter Administered Medications [...] RN) documented in this encounter Care Teams Clinical Coordinator Relationship Specialty Start Date End Date None None PCP - General 05/18/13 09/08/13 documented as of this encounter
--- OUTSIDE RECORDS SUMMARY | 2023-11-05 15:43 | XMS_ITS | Encounter Summary ---
Author Organization [facility] [place] [address] Care Team Providers Care Chute Man Name Role Phone None Primary Care Provider Unavailabl e Encounter Details Date Type Department Care Team (Late st Contact Info) Description 06/30/2013 3:44 PM EDT Anesthesia Event [place] [address] Haley Coats MD [facility] [place] [address] Irma Lamas CRNA [facility] [place] [address] Anesthesia Record Procedure Summary Procedure Name Responsible Anesthesiologist Anesthesia Start Time Anesthesia Stop Time COLONOSCOPY, POLYPECTOMY, REMOVAL LESION BY SNARE (WRVU 4.57) Haley Coats MD 06/30/13 1544 06/30/13 1621 Events Date Time Event Comment 06/30/2013 1531 1544 AN Verify 1544 Start 1544 An Start Data 1552 Anesthesia Ready 1621 an stop data 1621 Stop Meds Name Total lidocaine IV 20 mg propofol 40 mg propofol INF 374.4 mg * Agents Name O2 * Blood No blood administrations on file. Lines, Drains, and Airways Type Details Placement Removal (RETIRED) Peripheral IV Line - Single Lumen 06/30/13; 1513; metacarpal vein (top of hand), right; [id number] catheter system; 22 gauge; 0; 06/30/13; 1648 06/30/13 1513 by Rolanda Odell RN 06/30/13 1648 by Lis Rodriguez RN documented in this encounter Social History Tobacco [...] documented as of this encounter OR Notes * Anesthesia Postprocedure Evaluation - Haley Coats MD [...] tolerated the procedure well Fluid Status: normal * Anesthesia Preprocedure Evaluation - Haley Coats MD [...] breath sounds clear to auscultation Dental Assessment: Misc Assessment: Other exam findings: Lungs clear s/p albuterol Anesthesia Plan: ASA 2 MAC, with a(n) intravenous induction 52 y/o here for colonoscopy for colon cancer screening, N&V, abdominal pain PLAN: LMAC, avoid narcotics The patient was informed of the risks of anesthesia, and consent was obtained. These risks include,but are not limited to, PONV, pain, intraop awareness (expected), conversion to general anesthesia,and other rare but serious complications such as major organ damage, allergies, blood transfusions,and dental/lip trauma. Region - Other Informed Consent: Anesthetic plan and risks discussed with patient. Plan discussed with REMOTE SENSING SCIENTIST. [facility]. Assessment: documented in this encounter Plan of Treatment Not on file documented as of this encounter Visit Diagnoses Not on filedocumented in this encounter Administered Medications Inactive Administered Medications - up to 3 most recent administrations Medication Order MAR Action Action Date Dose Rate Site lidocaine (PF) (XYLOCAINE) 100 mg/5 mL (2 %) injection PRN, Starting on Merly 06/30/13 at 1549, Until Merly 06/30/13 at 1621, Anesthesia Intra-op, Routine Given 06/30/2013 3:49 PM EDT 20 mg propofol (DIPRIVAN) 10 mg/mL bolus injection (Anesthesia) PRN, Starting on Merly 06/30/13 at 1549, Until Merly 06/30/13 at 1621, Anesthesia Intra-op Given 06/30/2013 3:49 PM EDT 40 mg propofol (DIPRIVAN) infusion CONTINUOUS PRN, Starting on Merly 06/30/13 at 1549, Until Merly 06/30/13 at 1621, Anesthesia Intra-op, Routine New Bag 06/30/2013 3:49 PM EDT 200 mcg/kg/min 70.2 mL/hr documented in this encounter Care Teams Chute Man Relationship Specialty Start Date End Date None None PCP - General 05/18/13 09/08/13 documented as of this encounter
--- OUTSIDE RECORDS SUMMARY | 2023-11-05 15:43 | XMS_ITS | Encounter Summary ---
Author Organization [facility] [address] [place] [place] [address] Care Team Providers Care Picker Machine Operator Name Role Phone None Primary Care Provider Unavailabl e Reason for Visit * Reason Comments Chronic Kidney Disease Encounter Details Date Type Department Care Team (Latest Contact Info) Description 08/30/2013 10:30 AM EDT Office Visit [place] [address] Harshal Amato MD [facility] [place] [address] CKD (chronic kidney disease), stage 1 (Primary Dx) Discharge Disposition: Home Social History Tobacco Use [...] Progress Notes * Harshal Amato MD - 08/31/2013 5:18 PM [...] overdose on Tylenol and was admitted to [facility] and at that time had severe enough [...] family. One of her sisters is in detention and she does not know her history. [...] I did review the ultrasound report from [facility] dated 04/15/2013, which does state that [...] and I would suggest she call the [place] quit line and try to work on [...] Priority Date/Time Associated Diagnosis Comments HEMOGRAM STAT 08/30/2013 11:50 AM EDT CKD (chronic kidney disease), stage 1 DIFFERENTIAL, AUTOMATED STAT 08/30/2013 11:50 AM EDT CKD (chronic kidney disease), stage 1 CBC (WITH DIFF) STAT 08/30/2013 11:50 AM EDT CKD (chronic kidney disease), stage 1 TSH Routine 08/30/2013 11:50 AM EDT CKD (chronic kidney disease), stage 1 PROTEIN ELECTROPHORESIS, SERUM Routine 08/30/2013 11:50 AM EDT CKD (chronic kidney disease), stage 1 COMPREHENSIVE METABOLIC PANEL Routine 08/30/2013 11:50 AM EDT CKD (chronic kidney disease), stage 1 U ALBUMIN/CRE RATIO Routine 08/30/2013 1 1:30 AM EDT CKD (chronic kidney disease), stage 1 PROTEIN ELECTROPHORESIS, URINE, RANDOM Routine 08/30/2013 11:30 AM EDT CKD (chronic kidney disease), stage 1 documented in this encounter Results * Differential, Automated (08/30/2013 11:50 AM EDT) Neutrophil % 60.0 34.0 - 71.0 % [facility] MILLENNIUM Neutrophil Absolute 6.17 1.50 - 6.30 x10(3)/mcL CERNER MILLENNIUM Lymph % 33.8 19.0 - 53.0 % CERNER MILLENNIUM Lymphocytes Abs 3.5 1.0 - 3.6 x10(3)/mcL CERNER MILLENNIUM Monocyte % 4.0 4.0 - 13.0 % CERNER MILLENNIUM Monocyte Abs 0.4 0.2 - 1.0 x10(3)/mcL CERNER MILLENNIUM Eos % 1.7 0.0 - 7.0 % CERNER MILLENNIUM Eosinophils Abs 0.2 0.0 - 0.5 x10(3)/mcL CERNER MILLENNIUM Basophil % 0.3 0.0 - 2.0 % CERNER MILLENNIUM Baso Absolute 0.0 0.0 - 0.2 x10(3)/mcL CERNER MILLENNIUM Immature Gran % 0.20 0.00 - 0.66 % CERNER MILLENNIUM Comment: Immature granulocytes(IG's)percentage and absolute count will include metamyelocytes, myelocytes, and promyelocytes. Blood smears from CBCs yielding IG's will be scanned manually for concordance. If this scan disagrees with the automated IG or if promyelocytes are noted, a manual differential will be performed. Immature Gran Absolute 0.02 0.00 - 0.05 x10(3)/mcL CERNER MILLENNIUM Blood specimen (specimen) 08/30/2013 11:50 AM EDT 08/30/2013 11:57 AM EDT Narrative Resulting Agency Comment Spec In Lab Harshal Amato MD HEMATOLOGY ORDERABL ES CERNER MILLENNIUM * (ABNORMAL) Hemogram (08/30/2013 11:50 AM EDT) White Blood Cell 10.3(H) 4.0 - 10.0 x10(3)/mc L CERNER MILLENNIUM Red Blood Cell 4.12 3.93 - 5.22 x10(6)/mc L CERNER MILLENNIUM Hemoglobin 13.4 11.2 - 15.7 gm/dL CERNER MILLENNIUM Hematocrit 39.0 34.0 - 45.0 % CERNER MILLENNIUM Mean Cell Volume 94.7(H) 79.0 - 94.0 fL CERNER MILLENNIUM Mean Cell Hemoglobin 32.5(H) 26.6 - 32.2 pg CERNER MILLENNIUM Mean Cell Hemoglobin Concentration 34.4 32.0 - 36.5 gm/dL CERNER MILLENNIUM Platelet 302 145 - 370 x10(3)/mc L CERNER MILLENNIUM RDW Standard Deviation 47.0(H) 35.0 - 46.0 fL CERNER MILLENNIUM RDW coefficient of variation 13.5 10.9 - 14.4 % CERNER MILLENNIUM Mean Platelet Volume 10.0 9.0 - 12.0 fL CERNER MILLENNIUM Blood specimen (specimen) 08/30/2013 11:50 AM EDT 08/30/2013 11:57 AM EDT Narrative Resulting Agency Comment Spec In Lab Harshal Amato MD HEMATOLOGY ORDERABL ES Performing Organization Address City/[facility]/ZIP Co de Phone Number CERNER JOSEFINAENNIUM * TSH (08/30/2013 11:50 AM EDT) Thyroid Stimulating Hormone 0.79 0.27 - 4.20 mcIU/mL CERNER MILLENNIUM Blood specimen (specimen) 08/30/2013 11:50 AM EDT 08/30/2013 11:57 AM EDT Narrative Resulting Agency Comment Spec In Lab Harshal Amato MD CHEMISTRY ORDERABLE S Performing Organization Address [facility] de Phone Number CERNER MILLENNIUM * (ABNORMAL) Comprehensive metabolic panel (non-fasting) (08/30/2013 11:50 AM EDT) Glucose 87 60 - 199 mg/dL CERNER MILLENNIUM Comment:Diabetes: >=200 mg/d L plus symptoms Blood Urea Nitrogen 19(H) 8 - 18 mg/dL CERNER MILLENNIUM Creatinine 1.14 0.70 - 1.20 mg/dL CERNER MILLENNIUM Comment: Please note that the pediatric reference intervals supplied above were not validated at [facility]. Results from pediatric patients should be interpreted in conjunction to the patient's age, height and muscle mass. Sodium 136 135 - 145 mmol/L CERNER MILLENNIUM Potassium 4.2 3.5 - 5.0 mmol/L CERNER MILLENNIUM Comment: Please note: ??Patients with WBC >100,000 may have falsely elevated Potassium levels. ??For accurate Potassium quantification in these patients send serum separator tube (gold top) for subsequent determinations. ??Contact the Clinical Chemistry Laboratory if there are any questions. Chloride 100 98 - 107 mmol/L CERNER MILLENNIUM Carbon Dioxide 24 22 - 31 mmol/L CERNER MILLENNIUM Anion Gap 12 5 - 15 mmol/L CERNER MILLENNIUM Calcium 9.2 8.5 - 10.5 mg/dL CERNER MILLENNIUM Protein, Total 7.3 6.4 - 8.3 gm/dL CERNER MILLENNIUM Albumin 4.5 3.2 - 5.2 gm/dL CERNER MILLENNIUM Aspartate Aminotransferase 19 0 - 30 unit/L CERNER MILLENNIUM Alanine Aminotransferase 12 0 - 30 unit/L CERNER MILLENNIUM Alkaline Phosphatase 65 40 - 104 unit/L CERNER MILLENNIUM Bilirubin, Total 0.2 0.2 - 1.3 mg/dL CERNER MILLENNIUM Bilirubin, Direct 0.1 0.0 - 0.3 mg/dL CERNER MILLENNIUM Est Glomerular Filtration Rate 50(L) >=60 CERNER MILLENNIUM Comment: This estimated GFR (eGFR) value was [...] the following links into your internet browser. [email or web address] Blood specimen (specimen) 08/30/2013 11:50 AM EDT 08/30/2013 11:57 AM EDT Narrative Resulting Agency Comment Spec In Lab Harshal Amato MD CHEMISTRY ORDERABLE S CERNER MILLENNIUM * Protein Electrophoresis, serum (08/30/2013 11:50 AM EDT) Total Prot Electrophoresis 7.0 6.4 - 8.3 gm/dL CERNER MILLENNIUM Albumin Electrophoresis 4.38 3.60 - 6.00 gm/dL CERNER MILLENNIUM Alpha 1 Globulin 0.20 0.10 - 0.30 gm/dL CERNER MILLENNIUM Alpha 2 Globulin 0.80 0.40 - 0.90 gm/dL CERNER MILLENNIUM Beta Globulin 0.73 0.50 - 1.00 gm/dL CERNER MILLENNIUM Gamma Globulin 0.90 0.50 - 1.30 gm/dL CERNER MILLENNIUM M1 Band None Detected None Detected gm/dL CERNER MILLENNIUM Scan See Note CERNER MILLENNIUM Comment:Please see scanned r eport in Chart Review under the [facility] Laboratory Heading. Blood specimen (specimen) 08/30/2013 11:50 AM EDT 08/30/2013 11:57 AM EDT Narrative Resulting Agency Comment Spec In Lab Harshal Amato MD CHEMISTRY ORDERABLE S Performing Organization Address [facility] Co de Phone Number MAY ROCHAENNIUM * Protein Electrophoresis, urine, random (08/30/2013 11:30 AM EDT) Protein, Urine <6 0 - 12 mg/dL CE RNER MILLENNIUM U Albumin 39 % total CERNER MILLENNIUM Globulin, Urine 61 % total CERNER MILLENNIUM M1 Band, Urine None Detected None Detected % total CERNER MILLENNIUM U Scan See Note CERNER MILLENNIUM Comment:Please see scanned r eport in Chart Review under the [facility] Laboratory Heading. Urine specimen (specimen) 08/30/2013 11:30 AM EDT 08/30/2013 11:46 AM EDT Narrative Resulting Agency Comment Spec In Lab Harshal Amato MD URINE ORDERABLES Performing Organization Address [facility] de Phone Number CERARGELIA ROCHAENNIUM * Microalbumin, urine, random (08/30/2013 11:30 AM EDT) Creatinine, Urine 76 mg/dL CE RNER MILLENNIUM Albumin, Urine <3.0 mg/L CERNE R MILLENNIUM Albumin / Creatinin Ratio, Urine <4 mcg/mg Cr CERNER MILLENNIUM Comment: Reference Range* Random collection (mcg/mg creatinine) Normal ?<30 Microalbuminuria ?? 30 - 300 Clinical Albuminuria ?? >300 *[place] [employer]. Diabetic Nephropathy. Diabetes Care 1997;(Suppl 1):S24-S27 Exercise within 24 hour, infection, fever, CHF, marked hyperglycemia, and marked hypertension may elevate urinary albumin excretion over baseline values. Urine specimen (specimen) 08/30/2013 11:30 AM EDT 08/30/2013 11:46 AM EDT Narrative Resulting Agency Comment Spec In Lab Harshal Amato MD URINE ORDERABLES Performing Organization Address City/State/[facility] Co wv Phone Number [facility] documented in this encounter Visit Diagnoses Diagnosis CKD (chronic kidney disease), stage 1- Primary documented in this encounter Care Teams Picker Machine Operator Relationship Specialty Start Date End Date None None PCP - General 05/18/13 09/08/13 documented as of this encounter
--- OUTSIDE RECORDS SUMMARY | 2023-11-05 15:43 | XMS_ITS | Encounter Summary ---
Author Organization [facility] Address [facility] Ana María [place] [address] Care Team Providers Care Telephone Order Dispatcher Name Role Phone Lynda Cerda MD Primary Care Provider [phone] Reason for Referral * Consultation (Routine) - Closed Specialty Diagnoses / Procedures Referred By Contpaola t Referred To Contact Orthopaedics Diagnoses Pain in left wrist Chris Francis MD [facility] [place] [address] César Boswell MD [facility] [place] [address] Referral ID Status Reason Start Date Expiration Date V isits Requested Visits Authorized [id number] Closed Consult, Test & Treat 06/20/2015 06/19/2016 1 1 Reason for Visit * Reason Onset Date Comments Medication Refill 06/20/2015 Encounter Details Date Type Department Care Team (Late st Contact Info) Description 06/20/2015 Refill Acute [place] [address] Chris Francis MD [facility] [place] [address] Pain in left wrist Social History Tobacco Use Types Packs/Day Years Used Date Smoking Tobacco: Every Day Cigarettes 03 21 Smokeless Tobacco: Never Alcohol Use Standard Drinks/Week Comments Yes 0 (1 standard drink = 0.6 oz pur e alcohol) Rarely Sex and Gender Information Value Date Recorded Sex Assigned at Not on file Gender Identity Not on file Sexual Orientation Not on file documented as of this encounter Plan of Treatment Scheduled Referrals Name Type Priority Associated Diagnoses Order Schedule Referral to Orthopaedics Outpatient Referral Routine Pain in left wrist Ordered: 06/20/2015 documented as of this encounter Visit Diagnoses Diagnosis Pain in left wrist Pain in joint, forearm documented in this encounter Care Teams Telephone Order Dispatcher Relationship Specialty Start Date End Date Lynda Cerda MD [address] [place] [address] PCP - General 09/09/13 documented as of this encounter
--- OUTSIDE RECORDS SUMMARY | 2023-11-05 15:43 | XMS_ITS | Encounter Summary ---
Author Organization [facility] Ana María [place] [address] Care Team Providers Care Electric Vehicle Electrician Name Role Phone None Primary Care Provider Unavailabl e Reason for Visit * Reason Comments GI Problem Encounter Details Date Type Department Care Team (Late st Contact Info) Description 05/18/2013 1:00 PM EDT Office Visit Gastroenterology at [facility] [place] [address] Jemima Montes De Oca PAPER MILL MANAGER [facility] [place] [address] Colon cancer screening (Primary Dx); Drug-induced constipation Discharge Disposition: Home Social History Tobacco Use [...] Instructions* Jemima Montes De Oca APRN - 05/18/2013 1:46 [...] 3 months Jemima Montes De Oca APRN [phone] documented in this encounter Progress Notes * Jemima Montes De Oca APRN - 05/18/2013 [...] Negative for suicidal ideas, hallucinations, behavioral problems, confusion, sleep disturbance, self-injury, dysphoric mood, decreased concentration and agitation. The patientis nervous/anxious (H/o anxety that is treated with [...] are equal, round, and reactive to light. Righteye exhibits no discharge. Left eye exhibits no [...] Judgment and thought contentnormal. Assessment and Plan: Ms Alcantara is a pleasant 52 year old woman who presents for consultation of her abdominal bloating and constipation. 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 Discussed the etiology, pathophysiology and treatment of opioid-induced bowel dysfunction. We discussed proceeding with a bowel prep before starting new bowel regimen and she is amenable to this. Recommend starting Linaclotide and MiraLax. Reviewed the mechanism of action and side effects. Will have her startthe fodmap diet. #colon cancer screening: she has had a colonoscopy for colon cancer screening. Recommend proceedingwith colonoscopy for screening purposes and she is [...] Oca APRN Section of Gastroenterology and Hepatology [place] [phone] documented in this encounter Plan of Treatment Scheduled Orders Name Type Priority Associated Diagnoses Orde r Schedule COLONOSCOPY Procedures Routine Colon cancer screening Ordered: 05/18/2013 documented as of this encounter Visit Diagnoses Diagnosis Colon cancer screening- Primary Special screening for malignant neoplasms, colon Drug-induced constipation Other constipation documented in this encounter Care Teams Electric Vehicle Electrician Relationship Specialty Start Date End Date None None PCP - General 05/18/13 09/08/13 documented as of this encounter
--- OUTSIDE RECORDS SUMMARY | 2023-11-05 15:43 | XMS_ITS | Encounter Summary ---
Author Organization Counts Include [facility] Address [facility] [place] [address] Care Team Providers Care Lime Supervisor Name Role Phone Lynda Cerda MD Primary Care Provider [phone] Encounter Details Date Type Department Care Team (Late st Contact Info) Description 06/22/2014 11:30 AM EDT Follow-Up Nephrology [place] [address] Harshal Amato MD [facility] [place] [place] [address] CKD (chronic kidney disease), stage II Discharge Disposition: Home Social History Tobacco Use [...] Progress Notes * Harshal Amato MD - 06/22/2014 3:35 PM [...] Procedure Name Priority Date/Time Associated Diagnosis Comments PTH Routine 06/22/2014 10:48 AM EDT CKD (chronic kidney disease), stage II HEMOGRAM STAT 06/22/2014 10:48 AM EDT CKD (chronic kidney disease), stage II DIFFERENTIAL, AUTOMATED STAT 06/22/2014 10:48 AM EDT CKD (chronic kidney disease), stage II PROTEIN/CREATININE RATIO, URINE Routine 06/22/2014 10:48 AM EDT CKD (chronic kidney disease), stage II CBC (WITH DIFF) STAT 06/22/2014 10:48 AM EDT CKD (chronic kidney disease), stage II BASIC METABOLIC PANEL STAT 06/22/2014 10:48 AM EDT CKD (chronic kidney disease), stage II documented in this encounter Results * Differential, Automated (06/22/2014 10:48 AM EDT) Neutrophil % 55.0 % CERNER MILLENNIUM Neutrophil Absolute 4.97 1.50 - 6.30 x10(3)/mcL CERNER MILLENNIUM Lymph % 39.2 % CERNER MILLENNIUM Lymphocytes Abs 3.6 1.0 - 3.6 x10(3)/mcL CERNER MILLENNIUM Monocyte % 5.0 % CERNER MILLENNIUM Monocyte Abs 0.4 0.2 - 1.0 x10(3)/mcL CERNER MILLENNIUM Eos % 0.3 % CERNER MILLENNIUM Eosinophils Abs 0.0 0.0 - 0.5 x10(3)/mcL CERNER MILLENNIUM Basophil % 0.4 % CERNER MILLENNIUM Baso Absolute 0.0 0.0 - 0.2 x10(3)/mcL CERNER MILLENNIUM Immature Gran % 0.10 % CERN ER MILLENNIUM Comment: Immature granulocytes(IG's)percentage and absolute count will include metamyelocytes, myelocytes, and promyelocytes. Blood smears from CBCs yielding IG's will be scanned manually for concordance. If this scan disagrees with the automated IG or if promyelocytes are noted, a manual differential will be performed. Immature Gran Absolute 0.01 0.00 - 0.05 x10(3)/mcL CERNER MILLENNIUM Blood specimen (specimen) 06/22/2014 10:48 AM EDT 06/22/2014 10:57 AM EDT Narrative Resulting Agency Comment Spec In Lab Harshal Amato MD HEMATOLOGY ORDERABL ES CERARGELIA REYESIUM * Hemogram (06/22/2014 10:48 AM EDT) White Blood Cell 9.0 4.0 - 10.0 x10(3)/mcL CERNER MILLENNIUM Red Blood Cell 4.17 3.93 - 5.22 x10(6)/mcL CERNER MILLENNIUM Hemoglobin 13.3 11.2 - 15.7 gm/dL CERNER MILLENNIUM Hematocrit 38.7 34.0 - 45.0 % CERNER MILLENNIUM Mean Cell Volume 92.8 79.0 - 94.0 fL CERNER MILLENNIUM Mean Cell Hemoglobin 31.9 26.6 - 32.2 pg CERNER MILLENNIUM Mean Cell Hemoglobin Concentration 34.4 32.0 - 36.5 gm/dL CERNER MILLENNIUM Platelet 290 145 - 370 x10(3)/mcL CERNER MILLENNIUM RDW Standard Deviation 45.7 35.0 - 46.0 fL CERNER MILLENNIUM RDW coefficient of variation 13.6 10.9 - 14.4 % CERNER MILLENNIUM Mean Platelet Volume 9.6 9.0 - 12.0 fL [facility] MILLENNIUM Blood specimen (specimen) 06/22/2014 10:48 AM EDT 06/22/2014 10:57 AM EDT Narrative Resulting Agency Comment Spec In Lab Harshal Amato MD HEMATOLOGY ORDERABL ES Performing Organization Address [facility] Co de Phone Number [facility] AMYIUM * PTH (06/22/2014 10:48 AM EDT) Parathyroid Hormone 41 15 - 65 pg/mL [facility] JOSEFINAENNIUM Blood specimen (specimen) 06/22/2014 10:48 AM EDT 06/22/2014 10:57 AM EDT Narrative Resulting Agency Comment Spec In Lab Harshal Amato MD CHEMISTRY ORDERABLE S Performing Organization Address [facility] Co de Phone Number [facility] AMYIUM * Protein/Creatinine Ratio, urine (06/22/2014 10:48 AM EDT) Creatinine, Urine 155 mg/dL [facility] JOSEFINAENNIUM Protein, Urine 9 0 - 12 mg/dL [facility] MILLENNIUM Protein / Creatinine Ratio, Urine 0.1 ratio [facility] JOSEFINAENNIUM Urine specimen (specimen) 06/22/2014 10:48 AM EDT 06/22/2014 11:12 AM EDT Narrative Resulting Agency Comment Spec In Lab Harshal Amato MD URINE ORDERABLES [facility] MILLENNIUM * (ABNORMAL) Basic Metabolic Panel (non-fasting) (06/22/2014 10:48 AM EDT) Glucose 89 60 - 199 mg/dL CERNER MILLENNIUM Comment:Diabetes: >=200 mg/d L plus symptoms Blood Urea Nitrogen 17 8 - 18 mg/dL CERNER MILLENNIUM Creatinine 1.00 0.70 - 1.20 mg/dL CERNER MILLENNIUM Comment: Please note that the pediatric reference intervals supplied above were not validated at [facility]. Results from pediatric patients should be interpreted in conjunction to the patient's age, height and muscle mass. Sodium 139 135 - 145 mmol/L CERNER MILLENNIUM Potassium 4.1 3.5 - 5.0 mmol/L CERNER MILLENNIUM Comment: Please note: ??Patients with WBC >100,000 may have falsely elevated Potassium levels. ??For accurate Potassium quantification in these patients send serum separator tube (gold top) for subsequent determinations. ??Contact the Clinical Chemistry Laboratory if there are any questions. Chloride 100 98 - 107 mmol/L CERNER MILLENNIUM Carbon Dioxide 25 22 - 31 mmol/L CERNER MILLENNIUM Anion Gap 14 5 - 15 mmol/L CERNER MILLENNIUM Calcium 9.0 8.5 - 10.5 mg/dL CERNER MILLENNIUM Est Glomerular Filtration Rate 58(L) >=60 CERNER MILLENNIUM Comment: This estimated GFR [...] the following links into your internet browser. [email or web address] Blood specimen (specimen) 06/22/2014 10:48 AM EDT 06/22/2014 10:57 AM EDT Narrative Resulting Agency Comment Spec In Lab Harshal Amato MD CHEMISTRY ORDERABLE S [facility] documented in this encounter Visit Diagnoses Diagnosis CKD (chronic kidney disease), stage II Chronic kidney disease, Stage II (mild) documented in this encounter Care Teams Lime Supervisor Relationship Specialty Start Date End Date Lynda Cerda MD [address] [place] [address] [facility] [address] [place] [address] PCP - General 09/09/13 documented as of this encounter
[2023-11-05 21:57] LABS: *AMPHETAMINES SCREEN URINE Negative (Negative); *BARBITURATES SCREEN URINE Negative (Negative); *BENZODIAZEPINES SCREEN URINE Positive (Negative); Cannabinoids THC Positive (Negative); Cocaine Screen,Urine Negative (Negative); METHADONE URINE SCREEN Negative (Negative); OPIATES URINE SCREEN Positive (Negative)
[2023-11-05 21:59] LABS: Tricyclic Antidepressants Negative (Negative)
== END 2023-11-05 15:40 | disposition home or self-care (01) ==
LOC: LBN 15:39
PROVIDERS: PCP Family Medicine; Visit Provider Family Medicine
DX: G89.4 Chronic pain syndrome (principal)
CPT/HCPCS: 80307

== ENCOUNTER 2024-07-21 02:37 | Outpatient (CLI) | payer MEDICAID, SELFPAY ==
--- NOTE | 2024-07-21 07:30 | DI.DEXA_ITS ---
Exam(s) XR DEXA BONE DENSITY W/WO JUN EXAM: XR DEXA BONE DENSITY W/WO JUN CLINICAL HISTORY: screening for osteoporosis in post menopausal status,z78.0 TECHNIQUE: Routine DEXA evaluation of the lumbar spine, hip, or forearm. COMPARISON: CR XR DEXA BONE DENSITY W/WO JUN from 05/23/2022 FINDINGS: Performed on a [employer] unit. Lateral image: No compression fracture evident. Lumbar Spine total T-score: -2.5 which is osteoporosis range. Prior reading in April 2022 was -2.4 a nd prior to that the reading in October 2018 was -2.5. Hip total T-score:-2.2. Prior reading in April 2022 was -2.3. Independent reading at the level of the femoral neck yields T-score of -3.5 which is osteoporosis ra nge. Prior reading in April 2022 was -3.1. Forearm total T-score: -0.8. Prior reading in April 2022 was -0.6. IMPRESSION: Bone mineral density measures in the osteoporosis range for the lumbar spine and hip-femoral neck. F racture risk is high at these levels. Bone mineral density continues to measure in the normal range at the wrist-forearm and fracture risk at this level is low. Note: Any spine fracture indicates 5x risk for subsequent spine fracture and 2x risk for subsequent h ip fracture. World Health Organization criteria for BMD interpretation classify patients: Normal...... T- Score at or above -1.0 Osteopenic... T- Score between -1.0 and -2.5 Osteoporosis... T-Score at or below -2.5
--- NOTE | 2024-07-21 07:30 | DI.CTLCSR_ITS ---
Exam(s) CT CHEST LUNG CANCER SCREEN EXAM: CT CHEST LUNG CANCER SCREEN CLINICAL HISTORY: Screening for lung cancer,cigarette smoker, f17.210. TECHNIQUE: Imaging Protocol: Low Dose Technique CONTRAST MATERIAL: None COMPARISON: No exams were available for comparison FINDINGS: CHEST: LUNGS: There is a single tiny calcified granuloma in the right middle lobe again noted. There are no new ominous pulmonary nodules. There are no confluent infiltrates. No pleural effusions. MEDIASTINUM: There is no obvious hilar nor mediastinal adenopathy. CARDIAC: Heart size is normal. There is no pericardial effusion.Caliber of the thoracic aorta is wit hin normal limits. OTHER: OSSEOUS: No significant osseous lesions.. IMPRESSION: 1. No significant pulmonary nodules. 2. No infiltrates nor pleural effusions nor intrathoracic adenopathy. 3. Lung RADS Cat 1 - Negative: No nodules and definitely benign nodules Lung-RADS 1.0 CATEGORIES: Category 0 - Prior chest CT exam(s) being located for comparison. Category 1 - Annual screening in 12 months. No nodules or definitely benign nodules. Category 2 - Annual screening in 12 months. Benign appearance. Nodules with low likelihood of becomin g active cancer. Category 3 - 6-month follow-up. Probably benign. Short-term follow-up suggested. Nodules with low lik elihood of becoming active cancer. Category 4A - 3-month follow-up and CT/PET if >8 mm in size. Suspicious finding. Findings which requi re additional testing. Category 4B - Findings which require additional testing and tissue sampling. Category 4X - Category 3 or 4 nodules with additional features or imaging findings that increases the suspicion of malignancy. Modifier S- Potentially clinically significant findings (non lung cancer) RADIATION DOSE DELIVERED: 21.66mGy.cm Total DLP DATA REPOSITORY: All CT scans at this facility are submitted to the National Radiology Data Registry (NRDR) Dose Index Registry (DIR) with the [employer] (ACR). RADIATION OPTIMIZATION: All CT scans at this facility use at least one of these dose optimization te chniques: automated exposure control; mA and/or kV adjustment per patient size (includes targeted exa ms where dose is matched to clinical indication); or iterative reconstruction.
== END 2024-07-21 02:57 ==
LOC: DI 02:37
PROVIDERS: PCP Family Medicine; Visit Provider Family Medicine
DX: F17.210 Nicotine dependence, cigarettes, uncomplicated (principal); Z78.0 Asymptomatic menopausal state; Z13.820 Encounter for screening for osteoporosis; Z12.2 Encounter for screening for malignant neoplasm of respiratory organs; M81.0 Age-related osteoporosis without current pathological fracture
CPT/HCPCS: 71271; 77080

== ENCOUNTER 2024-07-21 03:11 | Outpatient (CLI) | payer MEDICAID, SELFPAY ==
[2024-07-21 13:28] LABS: HCT 40.7 % (36.0-46.0); HGB 14.1 g/dL (11.2-15.7); MCH 33.8 pg (27.0-33.0); MCHC 34.6 % (32.0-36.0); MCV 98 fL (80-95); MPV 9.2 fL (8.0-11.0); Platelet Count 294 10^3/uL (130-400); RBC 4.17 10^6/uL (3.93-5.22); RDW 13.2 % (11.7-14.6); RDW-SD 47.4 fL; WBC 7.62 10^3/uL (4.4-10.8)
[2024-07-21 14:04] LABS: Vitamin D 25 Total 15 ng/mL (30-100)
[2024-07-22 10:22] LABS: Hepatitis C Ab w Rflx HCV PCR Negative (Negative)
== END 2024-07-21 03:12 | disposition home or self-care (01) ==
LOC: LBO 03:11
PROVIDERS: PCP Family Medicine; Visit Provider Family Medicine
DX: E55.9 Vitamin D deficiency, unspecified (principal); Z11.59 Encounter for screening for other viral diseases
CPT/HCPCS: 36415; 82306; 85027; 86803

== ENCOUNTER 2025-01-03 13:42 | Outpatient (REF) | payer MEDICAID, SELFPAY ==
[2025-01-03 17:25] LABS: Cannabinoids THC Positive (Negative)
== END 2025-01-03 13:43 | disposition home or self-care (01) ==
LOC: LBN 13:42
PROVIDERS: PCP Family Medicine; Visit Provider Family Medicine
DX: G89.4 Chronic pain syndrome (principal)
CPT/HCPCS: 80307